=== PATIENT | male | born 1980 | race African-American/Black ===

== ENCOUNTER 2018-05-07 18:03 | Inpatient (IN) ==
[2018-05-07 19:02] LABS: Basophils % 0.1 % (0.0-0.8); Eosinophils # 0.1 10*3/uL (0.0-0.87); Eosinophils % 0.6 % (0.00-10.9); Hematocrit 39.6 VOL% (42.0-52.0); Hemoglobin 13.5 GM/DL (14.0-18.0); Immature Granulocytes % 0.4 %; Immature Granulocytes Absolute 0.04 #; Lymphocytes # 0.9 10*3/uL (1.4-4.0); Lymphocytes % 8.7 % (21.2-54.2); Mean Corpuscular HGB Conc 34.1 GM/DL (32-36); Mean Corpuscular Hemoglobin 27 PG (27-34); Mean Corpuscular Volume 77.8 FL (87-102); Mean Platelet Volume 10.5 FL (9.6-12.0); Monocytes # 0.9 10*3/uL (0.11-0.8); Monocytes % 7.8 % (1.7-12.7); Neutrophils # 8.9 10*3/uL (1.4-7.4); Neutrophils % 82.4 % (38.7-73.9); Platelet Count 292 T/CUMM (130-400); Red Blood Count 5.09 MC/CUMM (3.8-5.5); Red Cell Distribution Width 12.1 % (9.3-17.3); White Blood Count 10.9 T/CUMM (4-12)
[2018-05-07 19:24] LABS: Albumin 3.2 G/DL (3.4-5.0); Bilirubin,Total 0.5 MG/DL (0.2-1.0); Calcium 9.6 MG/DL (8.5-10.1); Osmolality,Calculated 267.8 MOS/KG (273-304); Potassium 3.8 MMOL/L (3.5-5.1); Total Protein 8.5 G/DL (6.4-8.3)
[2018-05-07] MEDS ORDERED: HYDROmorphone 2 MG/1 ML VIAL IM STA (21:03)
[2018-05-07] MEDS ORDERED: ONDANSETRON 4 MG/2 ML VIAL IV STA ×2 (21:06→21:23)
[2018-05-07] MEDS ORDERED: PIPERACILLIN/TAZOBACTAM 3,375 MG in SODIUM CHLORIDE 0.9% 100 ML IV STA (21:08)
[2018-05-07] MEDS ORDERED: HYDROmorphone 2 MG/1 ML VIAL IV STA (21:22)
[2018-05-07] MEDS ORDERED: SODIUM CHLORIDE 0.9% 1,000 ML IV STA (22:11)
[2018-05-08] MEDS ORDERED: DOCUSATE SODIUM 100 MG CAPSULE PO PRN (01:19)
[2018-05-08] MEDS ORDERED: GLUCAGON 1 MG VIAL IM PRN (01:37)
[2018-05-08] MEDS ORDERED: DEXTROSE 50% 25 GM/50 ML VIAL IV PRN (01:37)
[2018-05-08] MEDS: ONDANSETRON 4 MG/2 ML VIAL IV PRN ×2 (01:46→20:40)
[2018-05-08] MEDS: SODIUM CHLORIDE 0.9% 1,000 ML IV SCH ×2 (01:46→16:24)
[2018-05-08] MEDS: HYDROmorphone 2 MG/1 ML VIAL IV PRN ×4 (01:47→20:40)
[2018-05-08] MEDS: INSULIN REGULAR 100 UNIT/ML SUBCUT SCH ×4 (02:25→18:16)
[2018-05-08] MEDS ORDERED: VANCOMYCIN INJ 2,000 MG in SODIUM CHLORIDE 0.9% 500 ML IV SCH (02:30)
[2018-05-08] MEDS ORDERED: INFLUENZA VIRUS VACCINE 0.5 ML SYRINGE IM ONE (03:17)
[2018-05-08 04:21] LABS: Basophils % 0.2 % (0.0-0.8); Eosinophils # 0.1 10*3/uL (0.0-0.87); Eosinophils % 0.7 % (0.00-10.9); Hematocrit 35.3 VOL% (42.0-52.0); Hemoglobin 11.7 GM/DL (14.0-18.0); Immature Granulocytes % 0.7 %; Immature Granulocytes Absolute 0.07 #; Lymphocytes # 0.9 10*3/uL (1.4-4.0); Mean Corpuscular HGB Conc 33.1 GM/DL (32-36); Mean Corpuscular Hemoglobin 26 PG (27-34); Mean Corpuscular Volume 78.6 FL (87-102); Mean Platelet Volume 10.6 FL (9.6-12.0); Monocytes # 1.2 10*3/uL (0.11-0.8); Monocytes % 11.3 % (1.7-12.7); Neutrophils # 8.2 10*3/uL (1.4-7.4); Neutrophils % 78.1 % (38.7-73.9); Platelet Count 265 T/CUMM (130-400); Red Blood Count 4.49 MC/CUMM (3.8-5.5); White Blood Count 10.4 T/CUMM (4-12)
[2018-05-08 04:52] LABS: Calcium 8.7 MG/DL (8.5-10.1); Osmolality,Calculated 268.8 MOS/KG (273-304); Potassium 3.5 MMOL/L (3.5-5.1)
[2018-05-08 04:56] LABS: INR 0.9; PT Patient Result 10.1 SECS; Partial Thromboplastin Time 31.4 SECS (0-40)
[2018-05-08] MEDS ORDERED: LIDOCAINE 1% 20 ML VIAL ONE (06:40)
[2018-05-08] MEDS ORDERED: FAMOTIDINE 20 MG/2 ML VIAL IV ONE (07:12)
[2018-05-08] MEDS ORDERED: GENTAMICIN INJ 160 MG in SODIUM CHLORIDE 0.9% 100 ML IV SCH (09:00)
[2018-05-08] MEDS ORDERED: PROPOFOL 200 MG/20 ML VIAL IV ONE (09:10)
[2018-05-08] MEDS ORDERED: SEVOFLURANE 1 UNIT/15 MINUTE INH ONE (09:10)
[2018-05-08] MEDS ORDERED: ONDANSETRON 4 MG/2 ML VIAL ONE ×2 (09:10→09:28)
[2018-05-08] MEDS ORDERED: fentaNYL 100 MCG/2 ML VIAL ONE (09:10)
[2018-05-08] MEDS ORDERED: ROCURONIUM 100 MG/10 ML VIAL IV ONE (09:11)
[2018-05-08] MEDS ORDERED: PHENYLEPHRINE 1 MG/10 ML SYRINGE IV ONE (09:11)
[2018-05-08] MEDS ORDERED: SUCCINYLCHOLINE 200 MG/10 ML VIAL ONE (09:11)
[2018-05-08] MEDS ORDERED: HYDROmorphone 2 MG/1 ML VIAL IV PRN (09:27)
[2018-05-08] MEDS ORDERED: ONDANSETRON 4 MG/2 ML VIAL IV PRN (09:27)
[2018-05-08] MEDS ORDERED: HYDROmorphone 2 MG/1 ML VIAL ONE (09:28)
[2018-05-08] MEDS: GENTAMICIN INJ 480 MG in SODIUM CHLORIDE 0.9% 100 ML IV SCH (10:16)
[2018-05-08] MEDS: CLINDAMYCIN INJ 600 MG in PREMIX 1 EACH IV SCH ×2 (12:29→17:30)
[2018-05-08] MEDS: PIPERACILLIN/TAZOBACTAM 3,375 MG in SODIUM CHLORIDE 0.9% 100 ML IV SCH ×2 (13:08→18:16)
[2018-05-08] MEDS ORDERED: SKIN HEALING OINT (AQUAPHOR) 50 GM TUBE TOP PRN (15:32)
[2018-05-08] MEDS: INSULIN GLARGINE 100 UNIT/ML SUBCUT SCH (20:41)
[2018-05-09] MEDS: INSULIN REGULAR 100 UNIT/ML SUBCUT SCH ×4 (00:54→18:10)
[2018-05-09] MEDS: HYDROmorphone 2 MG/1 ML VIAL IV PRN ×3 (01:15→08:50)
[2018-05-09] MEDS: ONDANSETRON 4 MG/2 ML VIAL IV PRN ×2 (01:16→05:40)
[2018-05-09] MEDS: CLINDAMYCIN INJ 600 MG in PREMIX 1 EACH IV SCH ×3 (01:17→16:38)
[2018-05-09] MEDS: PIPERACILLIN/TAZOBACTAM 3,375 MG in SODIUM CHLORIDE 0.9% 100 ML IV SCH ×3 (02:05→18:10)
[2018-05-09 07:21] LABS: Basophils % 0.1 % (0.0-0.8); Eosinophils # 0.1 10*3/uL (0.0-0.87); Eosinophils % 0.7 % (0.00-10.9); Hematocrit 33.6 VOL% (42.0-52.0); Hemoglobin 11.3 GM/DL (14.0-18.0); Immature Granulocytes % 0.5 %; Immature Granulocytes Absolute 0.04 #; Lymphocytes # 1.2 10*3/uL (1.4-4.0); Lymphocytes % 14.1 % (21.2-54.2); Mean Corpuscular HGB Conc 33.6 GM/DL (32-36); Mean Corpuscular Hemoglobin 27 PG (27-34); Mean Corpuscular Volume 79.2 FL (87-102); Mean Platelet Volume 10.3 FL (9.6-12.0); Monocytes # 0.8 10*3/uL (0.11-0.8); Monocytes % 9.7 % (1.7-12.7); Neutrophils # 6.5 10*3/uL (1.4-7.4); Neutrophils % 74.9 % (38.7-73.9); Platelet Count 279 T/CUMM (130-400); Red Blood Count 4.24 MC/CUMM (3.8-5.5); Red Cell Distribution Width 12.3 % (9.3-17.3); White Blood Count 8.7 T/CUMM (4-12)
[2018-05-09 08:03] LABS: Calcium 8.7 MG/DL (8.5-10.1); Osmolality,Calculated 272.4 MOS/KG (273-304); Potassium 3.5 MMOL/L (3.5-5.1); Risk Ratio 4.53; Thyroid Stimulating Hormone 1.63 uIU/ml (0.358-3.74); VLDL CHOLESTEROL 17.8 MG/DL
[2018-05-09] MEDS: diphenhydrAMINE CAP 25 MG CAPSULE PO PRN (09:49)
[2018-05-09] MEDS ORDERED: NALBUPHINE 10 MG/ML AMP IV PRN (09:51)
[2018-05-09] MEDS: SODIUM CHLORIDE 0.9% 1,000 ML IV SCH ×3 (11:11→17:42)
[2018-05-09] MEDS: SODIUM HYPOCHLORITE 0.25% IRRIG 473 ML BOTTLE TOP SCH (11:12)
[2018-05-09] MEDS: GENTAMICIN INJ 480 MG in SODIUM CHLORIDE 0.9% 100 ML IV SCH (11:16)
[2018-05-09] MEDS ORDERED: KETOROLAC 30 MG/1 ML VIAL IV ONE (12:00)
[2018-05-09] MEDS: MORPHINE 4 MG/1 ML VIAL IV PRN ×3 (14:17→20:49)
[2018-05-09] MEDS: amLODIPine 5 MG TABLET PO SCH (16:36)
[2018-05-09] MEDS: INSULIN GLARGINE 100 UNIT/ML SUBCUT SCH (20:49)
[2018-05-10] MEDS: CLINDAMYCIN INJ 600 MG in PREMIX 1 EACH IV SCH ×2 (01:05→10:26)
[2018-05-10] MEDS: MORPHINE 4 MG/1 ML VIAL IV PRN ×2 (02:07→07:11)
[2018-05-10] MEDS: PIPERACILLIN/TAZOBACTAM 3,375 MG in SODIUM CHLORIDE 0.9% 100 ML IV SCH ×2 (02:07→10:26)
[2018-05-10] MEDS: INSULIN REGULAR 100 UNIT/ML SUBCUT SCH ×5 (02:29→17:55)
[2018-05-10 07:36] LABS: Basophils % 0.4 % (0.0-0.8); Eosinophils # 0.1 10*3/uL (0.0-0.87); Eosinophils % 1.4 % (0.00-10.9); Hematocrit 33.2 VOL% (42.0-52.0); Hemoglobin 11.1 GM/DL (14.0-18.0); Immature Granulocytes % 0.4 %; Immature Granulocytes Absolute 0.03 #; Lymphocytes # 1.2 10*3/uL (1.4-4.0); Lymphocytes % 16.9 % (21.2-54.2); Mean Corpuscular HGB Conc 33.4 GM/DL (32-36); Mean Corpuscular Hemoglobin 26 PG (27-34); Mean Corpuscular Volume 78.1 FL (87-102); Mean Platelet Volume 10.4 FL (9.6-12.0); Monocytes # 0.7 10*3/uL (0.11-0.8); Monocytes % 10.1 % (1.7-12.7); Neutrophils # 5.1 10*3/uL (1.4-7.4); Neutrophils % 70.8 % (38.7-73.9); Platelet Count 308 T/CUMM (130-400); Red Blood Count 4.25 MC/CUMM (3.8-5.5); Red Cell Distribution Width 12.2 % (9.3-17.3); White Blood Count 7.2 T/CUMM (4-12)
[2018-05-10 07:58] LABS: Calcium 8.7 MG/DL (8.5-10.1); Osmolality,Calculated 274.2 MOS/KG (273-304); Potassium 3.7 MMOL/L (3.5-5.1)
[2018-05-10] MEDS: GENTAMICIN INJ 480 MG in SODIUM CHLORIDE 0.9% 100 ML IV SCH (10:26)
[2018-05-10] MEDS: SODIUM CHLORIDE 0.9% 1,000 ML IV SCH ×2 (10:27→22:52)
[2018-05-10] MEDS: SODIUM HYPOCHLORITE 0.25% IRRIG 473 ML BOTTLE TOP SCH (10:27)
[2018-05-10] MEDS: amLODIPine 5 MG TABLET PO SCH (11:10)
[2018-05-10] MEDS: ACETAMINOPHEN 325 MG TABLET PO PRN ×2 (12:58→23:33)
[2018-05-10] MEDS ORDERED: metFORMIN 500 MG TABLET PO SCH (17:00)
[2018-05-10] MEDS: MEROPENEM 1,000 MG in SODIUM CHLORIDE 0.9% 100 ML IV SCH (17:56)
[2018-05-10] MEDS: INSULIN GLARGINE 100 UNIT/ML SUBCUT SCH (20:41)
[2018-05-10] MEDS: METOPROLOL TARTRATE 50 MG TABLET PO SCH (20:42)
[2018-05-10] MEDS ORDERED: METOPROLOL TARTRATE 50 MG TABLET PO SCH (21:00)
[2018-05-11] MEDS: MEROPENEM 1,000 MG in SODIUM CHLORIDE 0.9% 100 ML IV SCH ×3 (01:10→17:44)
[2018-05-11] MEDS: INSULIN REGULAR 100 UNIT/ML SUBCUT SCH ×4 (01:12→18:23)
[2018-05-11] MEDS ORDERED: HYDROmorphone 2 MG/1 ML VIAL IV ONE (01:17)
[2018-05-11 06:53] LABS: Basophils % 0.3 % (0.0-0.8); Eosinophils # 0.1 10*3/uL (0.0-0.87); Hematocrit 36.3 VOL% (42.0-52.0); Hemoglobin 12.2 GM/DL (14.0-18.0); Immature Granulocytes % 0.5 %; Immature Granulocytes Absolute 0.03 #; Lymphocytes # 1.2 10*3/uL (1.4-4.0); Lymphocytes % 18.7 % (21.2-54.2); Mean Corpuscular HGB Conc 33.6 GM/DL (32-36); Mean Corpuscular Hemoglobin 26 PG (27-34); Mean Corpuscular Volume 78.2 FL (87-102); Mean Platelet Volume 9.7 FL (9.6-12.0); Monocytes # 0.5 10*3/uL (0.11-0.8); Monocytes % 8.3 % (1.7-12.7); Neutrophils # 4.6 10*3/uL (1.4-7.4); Neutrophils % 70.2 % (38.7-73.9); Platelet Count 328 T/CUMM (130-400); Red Blood Count 4.64 MC/CUMM (3.8-5.5); Red Cell Distribution Width 12.3 % (9.3-17.3); White Blood Count 6.5 T/CUMM (4-12)
[2018-05-11 07:13] LABS: Alanine Aminotransferase 17 U/L (16-61); Albumin 2.6 G/DL (3.4-5.0); Alkaline Phosphatase 100 U/L (45-117); Aspartate Amino Transferase 10 U/L (0-37); Bilirubin,Total < 0.39 MG/DL (0.2-1.0); Blood Urea Nitrogen 11 MG/DL (7-18); Calcium 9.2 MG/DL (8.5-10.1); Glucose 252 MG/DL (74-106); Osmolality,Calculated 275.2 MOS/KG (273-304); Potassium 3.5 MMOL/L (3.5-5.1); Sodium 134 MMOL/L (136-145); Total Protein 7.4 G/DL (6.4-8.3)
[2018-05-11] MEDS: SODIUM HYPOCHLORITE 0.25% IRRIG 473 ML BOTTLE TOP SCH (09:30)
[2018-05-11] MEDS: SODIUM CHLORIDE 0.9% 1,000 ML IV SCH (13:30)
[2018-05-11] MEDS: METOPROLOL TARTRATE 50 MG TABLET PO SCH ×2 (13:30→23:57)
[2018-05-11] MEDS ORDERED: LIDOCAINE 1% 20 ML VIAL ONE (15:36)
[2018-05-11] MEDS: LACTATED RINGERS 1,000 ML IV SCH (16:00)
[2018-05-11] MEDS ORDERED: ONDANSETRON 4 MG/2 ML VIAL IV PRN (16:36)
[2018-05-11] MEDS: HYDROmorphone 2 MG/1 ML VIAL IV PRN ×2 (16:40→16:45)
[2018-05-11] MEDS ORDERED: MIDAZOLAM 2 MG/2 ML VIAL ONE (16:42)
[2018-05-11] MEDS ORDERED: fentaNYL 100 MCG/2 ML VIAL ONE (16:42)
[2018-05-11] MEDS ORDERED: PROPOFOL 200 MG/20 ML VIAL IV ONE (16:42)
[2018-05-11] MEDS ORDERED: hydrALAZINE 20 MG/1 ML VIAL ONE (16:42)
[2018-05-11] MEDS: LISINOPRIL 5 MG TABLET PO SCH ×2 (17:43→23:57)
[2018-05-11] MEDS: MEPERIDINE 25 MG/1 ML VIAL IV PRN (23:34)
[2018-05-11] MEDS: INSULIN GLARGINE 100 UNIT/ML SUBCUT SCH (23:57)
[2018-05-12] MEDS: MEROPENEM 1,000 MG in SODIUM CHLORIDE 0.9% 100 ML IV SCH ×4 (00:21→23:44)
[2018-05-12] MEDS: INSULIN REGULAR 100 UNIT/ML SUBCUT SCH ×4 (00:27→17:05)
[2018-05-12] MEDS: LACTATED RINGERS 1,000 ML IV SCH (00:56)
[2018-05-12] MEDS: ACETAMINOPHEN 325 MG TABLET PO PRN ×2 (04:11→21:48)
[2018-05-12 04:33] LABS: Basophils % 0.4 % (0.0-0.8); Eosinophils # 0.2 10*3/uL (0.0-0.87); Eosinophils % 2.2 % (0.00-10.9); Hematocrit 36.3 VOL% (42.0-52.0); Immature Granulocytes % 0.3 %; Immature Granulocytes Absolute 0.02 #; Lymphocytes # 1.2 10*3/uL (1.4-4.0); Lymphocytes % 16.2 % (21.2-54.2); Mean Corpuscular HGB Conc 33.1 GM/DL (32-36); Mean Corpuscular Hemoglobin 26 PG (27-34); Mean Corpuscular Volume 78.6 FL (87-102); Mean Platelet Volume 11.4 FL (9.6-12.0); Monocytes # 0.8 10*3/uL (0.11-0.8); Monocytes % 10.9 % (1.7-12.7); Neutrophils # 5.2 10*3/uL (1.4-7.4); Platelet Count 268 T/CUMM (130-400); Red Blood Count 4.62 MC/CUMM (3.8-5.5); Red Cell Distribution Width 12.3 % (9.3-17.3); White Blood Count 7.4 T/CUMM (4-12)
[2018-05-12 04:57] LABS: Calcium 9.1 MG/DL (8.5-10.1); Potassium 4.2 MMOL/L (3.5-5.1)
[2018-05-12 05:03] LABS: Albumin 2.6 G/DL (3.4-5.0); Calcium 9.2 MG/DL (8.5-10.1); Osmolality,Calculated 274.1 MOS/KG (273-304); Potassium 3.8 MMOL/L (3.5-5.1); Total Protein 7.5 G/DL (6.4-8.3)
[2018-05-12] MEDS: SODIUM CHLORIDE 0.9% 1,000 ML IV SCH ×2 (06:09→13:16)
[2018-05-12] MEDS: MEPERIDINE 25 MG/1 ML VIAL IV PRN (08:32)
[2018-05-12] MEDS: METOPROLOL TARTRATE 50 MG TABLET PO SCH ×2 (08:36→21:39)
[2018-05-12] MEDS: SODIUM HYPOCHLORITE 0.25% IRRIG 473 ML BOTTLE TOP SCH (08:36)
[2018-05-12] MEDS: LISINOPRIL 5 MG TABLET PO SCH ×2 (08:36→21:45)
[2018-05-12] MEDS ORDERED: MEPERIDINE 25 MG/1 ML VIAL IV ONE (14:13)
[2018-05-12] MEDS: INSULIN GLARGINE 100 UNIT/ML SUBCUT SCH (21:49)
[2018-05-13] MEDS: INSULIN REGULAR 100 UNIT/ML SUBCUT SCH ×5 (00:39→23:40)
[2018-05-13 05:03] LABS: Basophils % 0.3 % (0.0-0.8); Eosinophils # 0.2 10*3/uL (0.0-0.87); Eosinophils % 2.5 % (0.00-10.9); Hematocrit 35.7 VOL% (42.0-52.0); Hemoglobin 11.9 GM/DL (14.0-18.0); Immature Granulocytes % 0.4 %; Immature Granulocytes Absolute 0.03 #; Lymphocytes # 1.6 10*3/uL (1.4-4.0); Lymphocytes % 23.7 % (21.2-54.2); Mean Corpuscular HGB Conc 33.3 GM/DL (32-36); Mean Corpuscular Hemoglobin 26 PG (27-34); Mean Corpuscular Volume 77.9 FL (87-102); Mean Platelet Volume 9.7 FL (9.6-12.0); Monocytes # 0.7 10*3/uL (0.11-0.8); Monocytes % 10.4 % (1.7-12.7); Neutrophils # 4.3 10*3/uL (1.4-7.4); Neutrophils % 62.7 % (38.7-73.9); Platelet Count 385 T/CUMM (130-400); Red Blood Count 4.58 MC/CUMM (3.8-5.5); Red Cell Distribution Width 12.6 % (9.3-17.3); White Blood Count 6.9 T/CUMM (4-12)
[2018-05-13 05:15] LABS: Albumin 2.7 G/DL (3.4-5.0); Bilirubin,Total 0.7 MG/DL (0.2-1.0); Calcium 9.1 MG/DL (8.5-10.1); Osmolality,Calculated 273.1 MOS/KG (273-304); Total Protein 7.5 G/DL (6.4-8.3)
[2018-05-13] MEDS: MEROPENEM 1,000 MG in SODIUM CHLORIDE 0.9% 100 ML IV SCH ×3 (06:48→23:42)
[2018-05-13] MEDS: LISINOPRIL 5 MG TABLET PO SCH ×2 (08:57→21:09)
[2018-05-13] MEDS: METOPROLOL TARTRATE 50 MG TABLET PO SCH ×2 (08:57→21:09)
[2018-05-13] MEDS: SODIUM HYPOCHLORITE 0.25% IRRIG 473 ML BOTTLE TOP SCH (08:58)
[2018-05-13] MEDS: SODIUM CHLORIDE 0.9% 1,000 ML IV SCH (11:30)
[2018-05-13] MEDS: INSULIN GLARGINE 100 UNIT/ML SUBCUT SCH (21:07)
[2018-05-13] MEDS: diphenhydrAMINE CAP 25 MG CAPSULE PO PRN (23:41)
[2018-05-13] MEDS: ACETAMINOPHEN 325 MG TABLET PO PRN (23:41)
[2018-05-14] MEDS: SODIUM CHLORIDE 0.9% 1,000 ML IV SCH (02:41)
[2018-05-14] MEDS: INSULIN REGULAR 100 UNIT/ML SUBCUT SCH ×3 (05:51→17:40)
[2018-05-14 06:48] LABS: Basophils % 0.4 % (0.0-0.8); Eosinophils # 0.2 10*3/uL (0.0-0.87); Hematocrit 36.2 VOL% (42.0-52.0); Hemoglobin 11.9 GM/DL (14.0-18.0); Immature Granulocytes % 0.4 %; Immature Granulocytes Absolute 0.03 #; Lymphocytes # 1.9 10*3/uL (1.4-4.0); Lymphocytes % 27.2 % (21.2-54.2); Mean Corpuscular HGB Conc 32.9 GM/DL (32-36); Mean Corpuscular Hemoglobin 26 PG (27-34); Mean Corpuscular Volume 78.5 FL (87-102); Mean Platelet Volume 9.7 FL (9.6-12.0); Monocytes # 0.6 10*3/uL (0.11-0.8); Monocytes % 8.3 % (1.7-12.7); Neutrophils # 4.2 10*3/uL (1.4-7.4); Neutrophils % 60.7 % (38.7-73.9); Platelet Count 406 T/CUMM (130-400); Red Blood Count 4.61 MC/CUMM (3.8-5.5); Red Cell Distribution Width 12.7 % (9.3-17.3)
[2018-05-14] MEDS: MEROPENEM 1,000 MG in SODIUM CHLORIDE 0.9% 100 ML IV SCH ×3 (07:15→22:48)
[2018-05-14 07:24] LABS: Alanine Aminotransferase 45 U/L (16-61); Albumin 2.8 G/DL (3.4-5.0); Alkaline Phosphatase 92 U/L (45-117); Aspartate Amino Transferase 30 U/L (0-37); Bilirubin,Total < 0.39 MG/DL (0.2-1.0); Blood Urea Nitrogen 14 MG/DL (7-18); Calcium 9.2 MG/DL (8.5-10.1); Glucose 149 MG/DL (74-106); Potassium 3.9 MMOL/L (3.5-5.1); Sodium 136 MMOL/L (136-145); Total Protein 7.7 G/DL (6.4-8.3)
[2018-05-14] MEDS: LISINOPRIL 5 MG TABLET PO SCH ×2 (08:37→21:06)
[2018-05-14] MEDS: SODIUM HYPOCHLORITE 0.25% IRRIG 473 ML BOTTLE TOP SCH (08:37)
[2018-05-14] MEDS: METOPROLOL TARTRATE 50 MG TABLET PO SCH ×2 (08:37→20:38)
[2018-05-14] MEDS: diphenhydrAMINE CAP 25 MG CAPSULE PO PRN (20:38)
[2018-05-14] MEDS: ACETAMINOPHEN 325 MG TABLET PO PRN (20:38)
[2018-05-14] MEDS: INSULIN GLARGINE 100 UNIT/ML SUBCUT SCH (20:39)
[2018-05-15] MEDS: INSULIN REGULAR 100 UNIT/ML SUBCUT SCH ×4 (00:31→21:09)
[2018-05-15] MEDS: METOPROLOL TARTRATE 50 MG TABLET PO SCH ×2 (10:00→20:58)
[2018-05-15] MEDS: LISINOPRIL 5 MG TABLET PO SCH ×2 (10:00→20:58)
[2018-05-15] MEDS: MEROPENEM 1,000 MG in SODIUM CHLORIDE 0.9% 100 ML IV SCH ×3 (10:29→22:51)
[2018-05-15] MEDS: SODIUM HYPOCHLORITE 0.25% IRRIG 473 ML BOTTLE TOP SCH (10:30)
[2018-05-15] MEDS ORDERED: GENTAMICIN INJ 160 MG in SODIUM CHLORIDE 0.9% 100 ML IV SCH (13:30)
[2018-05-15] MEDS: GENTAMICIN INJ 480 MG in SODIUM CHLORIDE 0.9% 100 ML IV SCH (15:03)
[2018-05-15] MEDS: INSULIN GLARGINE 100 UNIT/ML SUBCUT SCH (21:07)
[2018-05-16] MEDS: diphenhydrAMINE CAP 25 MG CAPSULE PO PRN (00:40)
[2018-05-16] MEDS: INSULIN REGULAR 100 UNIT/ML SUBCUT SCH ×4 (01:50→18:08)
[2018-05-16] MEDS: LISINOPRIL 5 MG TABLET PO SCH ×2 (08:47→21:47)
[2018-05-16] MEDS: METOPROLOL TARTRATE 50 MG TABLET PO SCH ×2 (08:48→21:47)
[2018-05-16] MEDS: MEROPENEM 1,000 MG in SODIUM CHLORIDE 0.9% 100 ML IV SCH ×3 (08:48→23:01)
[2018-05-16] MEDS: SODIUM HYPOCHLORITE 0.25% IRRIG 473 ML BOTTLE TOP SCH (09:30)
[2018-05-16] MEDS: ZINC SULFATE 220 MG CAPSULE PO SCH (12:54)
[2018-05-16] MEDS: ASCORBIC ACID 500 MG TABLET PO SCH ×2 (12:55→21:48)
[2018-05-16] MEDS: INSULIN GLARGINE 100 UNIT/ML SUBCUT SCH ×2 (12:55→21:51)
[2018-05-16] MEDS: GENTAMICIN INJ 480 MG in SODIUM CHLORIDE 0.9% 100 ML IV SCH (14:52)
[2018-05-16] MEDS: ACETAMINOPHEN 325 MG TABLET PO PRN (21:47)
[2018-05-17] MEDS: INSULIN REGULAR 100 UNIT/ML SUBCUT SCH ×5 (00:21→16:48)
[2018-05-17 05:07] LABS: Basophils % 0.6 % (0.0-0.8); Eosinophils # 0.2 10*3/uL (0.0-0.87); Eosinophils % 2.5 % (0.00-10.9); Hematocrit 36.9 VOL% (42.0-52.0); Hemoglobin 11.9 GM/DL (14.0-18.0); Immature Granulocytes % 0.4 %; Immature Granulocytes Absolute 0.03 #; Lymphocytes # 1.9 10*3/uL (1.4-4.0); Lymphocytes % 26.2 % (21.2-54.2); Mean Corpuscular HGB Conc 32.2 GM/DL (32-36); Mean Corpuscular Hemoglobin 26 PG (27-34); Mean Corpuscular Volume 79.2 FL (87-102); Mean Platelet Volume 9.8 FL (9.6-12.0); Monocytes # 0.5 10*3/uL (0.11-0.8); Monocytes % 6.5 % (1.7-12.7); Neutrophils # 4.5 10*3/uL (1.4-7.4); Neutrophils % 63.8 % (38.7-73.9); Platelet Count 414 T/CUMM (130-400); Red Blood Count 4.66 MC/CUMM (3.8-5.5); Red Cell Distribution Width 12.9 % (9.3-17.3); White Blood Count 7.1 T/CUMM (4-12)
[2018-05-17 05:20] LABS: Calcium 9.2 MG/DL (8.5-10.1); Osmolality,Calculated 278.1 MOS/KG (273-304); Potassium 4.3 MMOL/L (3.5-5.1)
[2018-05-17 05:23] LABS: Albumin 3.1 G/DL (3.4-5.0); Bilirubin,Total 0.5 MG/DL (0.2-1.0); Osmolality,Calculated 281.8 MOS/KG (273-304); Potassium 4.3 MMOL/L (3.5-5.1); Total Protein 7.8 G/DL (6.4-8.3)
[2018-05-17] MEDS: ACETAMINOPHEN 325 MG TABLET PO PRN ×3 (06:30→21:20)
[2018-05-17] MEDS: MEROPENEM 1,000 MG in SODIUM CHLORIDE 0.9% 100 ML IV SCH ×2 (06:30→15:19)
[2018-05-17] MEDS: METOPROLOL TARTRATE 50 MG TABLET PO SCH ×2 (09:36→20:39)
[2018-05-17] MEDS: LISINOPRIL 5 MG TABLET PO SCH ×2 (09:36→20:39)
[2018-05-17] MEDS ORDERED: LIDOCAINE 1% 20 ML VIAL ONE (10:08)
[2018-05-17] MEDS ORDERED: HYDROmorphone 2 MG/1 ML VIAL ONE (11:27)
[2018-05-17] MEDS ORDERED: ONDANSETRON 4 MG/2 ML VIAL ONE (11:27)
[2018-05-17] MEDS ORDERED: ONDANSETRON 4 MG/2 ML VIAL IV PRN (11:28)
[2018-05-17] MEDS: HYDROmorphone 2 MG/1 ML VIAL IV PRN ×4 (11:33→12:00)
[2018-05-17] MEDS: ZINC SULFATE 220 MG CAPSULE PO SCH (11:36)
[2018-05-17] MEDS: ASCORBIC ACID 500 MG TABLET PO SCH ×2 (11:36→20:39)
[2018-05-17] MEDS: SODIUM HYPOCHLORITE 0.25% IRRIG 473 ML BOTTLE TOP SCH (11:36)
[2018-05-17] MEDS: INSULIN GLARGINE 100 UNIT/ML SUBCUT SCH (11:36)
[2018-05-17] MEDS ORDERED: PROPOFOL 200 MG/20 ML VIAL IV ONE (11:49)
[2018-05-17] MEDS ORDERED: SEVOFLURANE 1 UNIT/15 MINUTE INH ONE (11:50)
[2018-05-17] MEDS ORDERED: MIDAZOLAM 2 MG/2 ML VIAL ONE (11:50)
[2018-05-17] MEDS ORDERED: fentaNYL 100 MCG/2 ML VIAL ONE (11:50)
[2018-05-17] MEDS: HEPARIN 5,000 UNIT/1 ML VIAL SUBCUT SCH ×2 (13:12→15:20)
[2018-05-17] MEDS: GENTAMICIN INJ 480 MG in SODIUM CHLORIDE 0.9% 100 ML IV SCH (14:15)
[2018-05-17] MEDS: diphenhydrAMINE CAP 25 MG CAPSULE PO PRN (16:52)
[2018-05-18] MEDS: INSULIN REGULAR 100 UNIT/ML SUBCUT SCH ×7 (00:49→21:32)
[2018-05-18] MEDS: HEPARIN 5,000 UNIT/1 ML VIAL SUBCUT SCH ×3 (01:05→15:55)
[2018-05-18] MEDS: MEROPENEM 1,000 MG in SODIUM CHLORIDE 0.9% 100 ML IV SCH ×4 (01:05→17:53)
[2018-05-18] MEDS: INSULIN GLARGINE 100 UNIT/ML SUBCUT SCH ×3 (02:05→21:31)
[2018-05-18] MEDS: ACETAMINOPHEN 325 MG TABLET PO PRN (02:07)
[2018-05-18 05:10] LABS: Basophils % 0.4 % (0.0-0.8); Eosinophils # 0.2 10*3/uL (0.0-0.87); Eosinophils % 2.3 % (0.00-10.9); Hematocrit 37.2 VOL% (42.0-52.0); Hemoglobin 12.2 GM/DL (14.0-18.0); Immature Granulocytes % 0.4 %; Immature Granulocytes Absolute 0.03 #; Lymphocytes # 1.8 10*3/uL (1.4-4.0); Lymphocytes % 21.7 % (21.2-54.2); Mean Corpuscular HGB Conc 32.8 GM/DL (32-36); Mean Corpuscular Hemoglobin 26 PG (27-34); Mean Platelet Volume 9.8 FL (9.6-12.0); Monocytes # 0.5 10*3/uL (0.11-0.8); Monocytes % 6.2 % (1.7-12.7); Neutrophils # 5.6 10*3/uL (1.4-7.4); Platelet Count 391 T/CUMM (130-400); Red Blood Count 4.71 MC/CUMM (3.8-5.5); Red Cell Distribution Width 12.8 % (9.3-17.3); White Blood Count 8.1 T/CUMM (4-12)
[2018-05-18 05:32] LABS: Albumin 2.9 G/DL (3.4-5.0); Bilirubin,Total 0.5 MG/DL (0.2-1.0); Calcium 9.2 MG/DL (8.5-10.1); Osmolality,Calculated 278.2 MOS/KG (273-304); Potassium 4.6 MMOL/L (3.5-5.1); Total Protein 7.6 G/DL (6.4-8.3)
[2018-05-18] MEDS: LISINOPRIL 5 MG TABLET PO SCH (08:10)
[2018-05-18] MEDS: ASCORBIC ACID 500 MG TABLET PO SCH ×2 (08:10→21:35)
[2018-05-18] MEDS: ZINC SULFATE 220 MG CAPSULE PO SCH (08:10)
[2018-05-18] MEDS: METOPROLOL TARTRATE 50 MG TABLET PO SCH ×2 (08:10→21:33)
[2018-05-18] MEDS ORDERED: HYDROmorphone 2 MG/1 ML VIAL IV ONE (10:50)
[2018-05-18] MEDS: SODIUM HYPOCHLORITE 0.25% IRRIG 473 ML BOTTLE TOP SCH (11:10)
[2018-05-18] MEDS: GENTAMICIN INJ 480 MG in SODIUM CHLORIDE 0.9% 100 ML IV SCH (14:41)
[2018-05-18] MEDS: HYDROmorphone 2 MG/1 ML VIAL IV PRN ×2 (15:55→21:32)
[2018-05-18] MEDS: diphenhydrAMINE CAP 25 MG CAPSULE PO PRN (17:53)
[2018-05-18] MEDS ORDERED: hydrALAZINE 25 MG TABLET ONE (20:29)
[2018-05-19] MEDS: INSULIN REGULAR 100 UNIT/ML SUBCUT SCH ×6 (01:01→21:01)
[2018-05-19] MEDS: HEPARIN 5,000 UNIT/1 ML VIAL SUBCUT SCH ×3 (01:02→15:14)
[2018-05-19] MEDS: LISINOPRIL 5 MG TABLET PO SCH ×3 (01:02→20:48)
[2018-05-19] MEDS: diphenhydrAMINE CAP 25 MG CAPSULE PO PRN (01:02)
[2018-05-19] MEDS: MEROPENEM 1,000 MG in SODIUM CHLORIDE 0.9% 100 ML IV SCH ×3 (01:03→16:56)
[2018-05-19 04:43] LABS: Albumin 3.2 G/DL (3.4-5.0); Bilirubin,Total 0.4 MG/DL (0.2-1.0); Calcium 9.1 MG/DL (8.5-10.1); Osmolality,Calculated 280.1 MOS/KG (273-304); Potassium 4.6 MMOL/L (3.5-5.1); Total Protein 7.9 G/DL (6.4-8.3)
[2018-05-19 06:21] LABS: Basophils % 0.4 % (0.0-0.8); Eosinophils # 0.2 10*3/uL (0.0-0.87); Eosinophils % 3.1 % (0.00-10.9); Hematocrit 37.9 VOL% (42.0-52.0); Hemoglobin 12.3 GM/DL (14.0-18.0); Immature Granulocytes % 0.3 %; Immature Granulocytes Absolute 0.02 #; Lymphocytes # 1.8 10*3/uL (1.4-4.0); Lymphocytes % 25.8 % (21.2-54.2); Mean Corpuscular HGB Conc 32.5 GM/DL (32-36); Mean Corpuscular Hemoglobin 26 PG (27-34); Mean Corpuscular Volume 80.5 FL (87-102); Mean Platelet Volume 10.2 FL (9.6-12.0); Monocytes # 0.5 10*3/uL (0.11-0.8); Neutrophils # 4.5 10*3/uL (1.4-7.4); Neutrophils % 63.4 % (38.7-73.9); Platelet Count 381 T/CUMM (130-400); Red Blood Count 4.71 MC/CUMM (3.8-5.5); Red Cell Distribution Width 12.9 % (9.3-17.3); White Blood Count 7.1 T/CUMM (4-12)
[2018-05-19] MEDS ORDERED: LIDOCAINE 1% 20 ML VIAL ONE (08:15)
[2018-05-19] MEDS ORDERED: BUPIVACAINE 0.5% 50 ML VIAL ONE (08:15)
[2018-05-19] MEDS ORDERED: fentaNYL 100 MCG/2 ML VIAL ONE (09:49)
[2018-05-19] MEDS ORDERED: SEVOFLURANE 1 UNIT/15 MINUTE INH ONE (09:50)
[2018-05-19] MEDS ORDERED: PROPOFOL 200 MG/20 ML VIAL IV ONE (09:50)
[2018-05-19] MEDS ORDERED: MIDAZOLAM 2 MG/2 ML VIAL ONE (09:50)
[2018-05-19] MEDS ORDERED: PHENYLEPHRINE 1 MG/10 ML SYRINGE IV ONE (09:51)
[2018-05-19] MEDS ORDERED: ONDANSETRON 4 MG/2 ML VIAL ONE (09:51)
[2018-05-19] MEDS ORDERED: ONDANSETRON 4 MG/2 ML VIAL IV PRN (09:56)
[2018-05-19] MEDS: HYDROmorphone 2 MG/1 ML VIAL IV PRN ×8 (09:59→20:57)
[2018-05-19] MEDS: SODIUM HYPOCHLORITE 0.25% IRRIG 473 ML BOTTLE TOP SCH (09:59)
[2018-05-19] MEDS: INSULIN GLARGINE 100 UNIT/ML SUBCUT SCH ×2 (11:55→20:58)
[2018-05-19] MEDS: METOPROLOL TARTRATE 50 MG TABLET PO SCH ×2 (13:31→20:48)
[2018-05-19] MEDS: ASCORBIC ACID 500 MG TABLET PO SCH ×2 (13:31→20:48)
[2018-05-19] MEDS: ZINC SULFATE 220 MG CAPSULE PO SCH (15:13)
[2018-05-19] MEDS: GENTAMICIN INJ 480 MG in SODIUM CHLORIDE 0.9% 100 ML IV SCH (15:25)
[2018-05-20] MEDS: HEPARIN 5,000 UNIT/1 ML VIAL SUBCUT SCH ×3 (00:47→16:54)
[2018-05-20] MEDS: MEROPENEM 1,000 MG in SODIUM CHLORIDE 0.9% 100 ML IV SCH ×3 (00:48→16:46)
[2018-05-20] MEDS: HYDROmorphone 2 MG/1 ML VIAL IV PRN ×4 (00:49→21:47)
[2018-05-20] MEDS: INSULIN REGULAR 100 UNIT/ML SUBCUT SCH ×6 (00:51→21:48)
[2018-05-20 06:24] LABS: Basophils % 0.4 % (0.0-0.8); Eosinophils # 0.2 10*3/uL (0.0-0.87); Eosinophils % 2.6 % (0.00-10.9); Hematocrit 35.7 VOL% (42.0-52.0); Hemoglobin 11.8 GM/DL (14.0-18.0); Immature Granulocytes % 0.3 %; Immature Granulocytes Absolute 0.02 #; Lymphocytes # 1.4 10*3/uL (1.4-4.0); Lymphocytes % 19.4 % (21.2-54.2); Mean Corpuscular HGB Conc 33.1 GM/DL (32-36); Mean Corpuscular Hemoglobin 26 PG (27-34); Mean Corpuscular Volume 79.7 FL (87-102); Mean Platelet Volume 9.7 FL (9.6-12.0); Monocytes # 0.5 10*3/uL (0.11-0.8); Monocytes % 6.7 % (1.7-12.7); Neutrophils # 5.2 10*3/uL (1.4-7.4); Neutrophils % 70.6 % (38.7-73.9); Platelet Count 381 T/CUMM (130-400); Red Blood Count 4.48 MC/CUMM (3.8-5.5); Red Cell Distribution Width 12.9 % (9.3-17.3); White Blood Count 7.3 T/CUMM (4-12)
[2018-05-20 06:45] LABS: Alanine Aminotransferase 44 U/L (16-61); Albumin 3.2 G/DL (3.4-5.0); Alkaline Phosphatase 105 U/L (45-117); Aspartate Amino Transferase 22 U/L (0-37); Bilirubin,Total < 0.39 MG/DL (0.2-1.0); Blood Urea Nitrogen 29 MG/DL (7-18); Calcium 9.1 MG/DL (8.5-10.1); Glucose 180 MG/DL (74-106); Osmolality,Calculated 283.8 MOS/KG (273-304); Potassium 4.8 MMOL/L (3.5-5.1); Sodium 137 MMOL/L (136-145); Total Protein 7.9 G/DL (6.4-8.3)
[2018-05-20] MEDS: INSULIN GLARGINE 100 UNIT/ML SUBCUT SCH ×2 (09:12→21:48)
[2018-05-20] MEDS: ASCORBIC ACID 500 MG TABLET PO SCH ×2 (09:13→21:46)
[2018-05-20] MEDS: ZINC SULFATE 220 MG CAPSULE PO SCH (09:13)
[2018-05-20] MEDS: LISINOPRIL 5 MG TABLET PO SCH ×2 (09:13→21:46)
[2018-05-20] MEDS: SODIUM HYPOCHLORITE 0.25% IRRIG 473 ML BOTTLE TOP SCH (09:15)
[2018-05-20] MEDS: METOPROLOL TARTRATE 50 MG TABLET PO SCH ×2 (09:15→21:46)
[2018-05-20] MEDS: diphenhydrAMINE CAP 25 MG CAPSULE PO PRN ×2 (13:47→23:06)
[2018-05-20] MEDS: GENTAMICIN INJ 480 MG in SODIUM CHLORIDE 0.9% 100 ML IV SCH (16:45)
[2018-05-21] MEDS: MEROPENEM 1,000 MG in SODIUM CHLORIDE 0.9% 100 ML IV SCH ×3 (00:29→16:37)
[2018-05-21] MEDS: HEPARIN 5,000 UNIT/1 ML VIAL SUBCUT SCH ×3 (00:29→16:38)
[2018-05-21] MEDS: INSULIN REGULAR 100 UNIT/ML SUBCUT SCH ×6 (00:30→21:09)
[2018-05-21] MEDS: HYDROmorphone 2 MG/1 ML VIAL IV PRN ×5 (05:35→23:31)
[2018-05-21] MEDS: LISINOPRIL 5 MG TABLET PO SCH ×2 (09:15→20:46)
[2018-05-21] MEDS: ZINC SULFATE 220 MG CAPSULE PO SCH (09:15)
[2018-05-21] MEDS: INSULIN GLARGINE 100 UNIT/ML SUBCUT SCH ×2 (09:15→21:10)
[2018-05-21] MEDS: METOPROLOL TARTRATE 50 MG TABLET PO SCH ×2 (09:15→20:45)
[2018-05-21] MEDS: ASCORBIC ACID 500 MG TABLET PO SCH ×2 (09:16→20:43)
[2018-05-21] MEDS: SODIUM HYPOCHLORITE 0.25% IRRIG 473 ML BOTTLE TOP SCH (09:16)
[2018-05-21] MEDS: GENTAMICIN INJ 480 MG in SODIUM CHLORIDE 0.9% 100 ML IV SCH (13:48)
[2018-05-21] MEDS: diphenhydrAMINE CAP 25 MG CAPSULE PO PRN (20:48)
[2018-05-22] MEDS: INSULIN REGULAR 100 UNIT/ML SUBCUT SCH ×4 (01:08→15:05)
[2018-05-22] MEDS: HEPARIN 5,000 UNIT/1 ML VIAL SUBCUT SCH ×2 (01:08→09:22)
[2018-05-22] MEDS: MEROPENEM 1,000 MG in SODIUM CHLORIDE 0.9% 100 ML IV SCH ×2 (01:08→09:22)
[2018-05-22] MEDS: HYDROmorphone 2 MG/1 ML VIAL IV PRN ×2 (02:43→08:12)
[2018-05-22] MEDS: LISINOPRIL 5 MG TABLET PO SCH (09:23)
[2018-05-22] MEDS: METOPROLOL TARTRATE 50 MG TABLET PO SCH (09:23)
[2018-05-22] MEDS: ASCORBIC ACID 500 MG TABLET PO SCH (09:23)
[2018-05-22] MEDS: ZINC SULFATE 220 MG CAPSULE PO SCH (09:23)
[2018-05-22] MEDS: INSULIN GLARGINE 100 UNIT/ML SUBCUT SCH (09:23)
[2018-05-22] MEDS: SODIUM HYPOCHLORITE 0.25% IRRIG 473 ML BOTTLE TOP SCH (10:26)
[2018-05-22 12:11] VITALS: BP 130/84
[2018-05-22] MEDS: GENTAMICIN INJ 480 MG in SODIUM CHLORIDE 0.9% 100 ML IV SCH (14:23)
== END 2018-05-22 15:08 | disposition home health service (06) | DRG 239 ==
LOC: N.ED 18:03 → SUATTDRO 23:51 → N.EDINP 05-08 00:37 → N.5E 05-08 01:30
PROVIDERS: ADMIT Internal Medicine; ATTEND Internal Medicine

== ENCOUNTER 2018-10-03 19:09 | Inpatient (IN) ==
[2018-10-03] MEDS ORDERED: HYDROmorphone 2 MG/1 ML VIAL IV STA (21:21)
[2018-10-03] MEDS ORDERED: CEFTAROLINE 600 MG in SODIUM CHLORIDE 0.9% 100 ML IV STA (21:21)
[2018-10-03] MEDS ORDERED: ONDANSETRON 4 MG/2 ML VIAL IV STA (21:21)
[2018-10-03 21:42] LABS: Basophils % 0.3 % (0.0-0.8); Eosinophils # 0.2 10*3/uL (0.0-0.87); Eosinophils % 2.6 % (0.00-10.9); Hematocrit 35.7 VOL% (42.0-52.0); Hemoglobin 11.8 GM/DL (14.0-18.0); Immature Granulocytes % 0.4 %; Immature Granulocytes Absolute 0.03 #; Lymphocytes # 1.2 10*3/uL (1.4-4.0); Lymphocytes % 15.4 % (21.2-54.2); Mean Corpuscular HGB Conc 33.1 GM/DL (32-36); Mean Platelet Volume 10.7 FL (9.6-12.0); Monocytes % 8.6 % (1.7-12.7); Neutrophils % 72.7 % (38.7-73.9); Platelet Count 245 T/CUMM (130-400); Red Blood Count 4.52 MC/CUMM (3.8-5.5); Red Cell Distribution Width 12.4 % (9.3-17.3); White Blood Count 7.6 T/CUMM (4-12)
[2018-10-03 22:00] LABS: Alanine Aminotransferase 23 U/L (16-61); Albumin 3.4 G/DL (3.4-5.0); Alkaline Phosphatase 107 U/L (45-117); Aspartate Amino Transferase 14 U/L (0-37); Bilirubin,Total < 0.39 MG/DL (0.2-1.0); Blood Urea Nitrogen 15 MG/DL (7-18); Calcium 9.4 MG/DL (8.5-10.1); Glucose 232 MG/DL (74-106); Osmolality,Calculated 277.1 MOS/KG (273-304); Total Protein 8.2 G/DL (6.4-8.3)
[2018-10-03 22:46] LABS: Sedimentation Rate-Westergren 76 MM/HR (0-15)
[2018-10-04] MEDS ORDERED: GLUCAGON 1 MG VIAL IM PRN (00:50)
[2018-10-04] MEDS ORDERED: ONDANSETRON 4 MG/2 ML VIAL IV PRN (00:50)
[2018-10-04] MEDS ORDERED: ACETAMINOPHEN 325 MG TABLET PO PRN (00:50)
[2018-10-04] MEDS ORDERED: DEXTROSE 50% 25 GM/50 ML VIAL IV PRN (00:50)
[2018-10-04] MEDS: PIPERACILLIN/TAZOBACTAM 3,375 MG in SODIUM CHLORIDE 0.9% 100 ML IV SCH ×3 (01:30→17:00)
[2018-10-04] MEDS: INSULIN REGULAR 100 UNIT/ML SUBCUT SCH ×4 (01:30→18:12)
[2018-10-04] MEDS: SODIUM CHLORIDE 0.9% 1,000 ML IV SCH ×4 (01:30→17:00)
[2018-10-04 05:16] LABS: Basophils % 0.1 % (0.0-0.8); Eosinophils # 0.2 10*3/uL (0.0-0.87); Eosinophils % 3.4 % (0.00-10.9); Hematocrit 34.4 VOL% (42.0-52.0); Hemoglobin 11.5 GM/DL (14.0-18.0); Immature Granulocytes % 0.3 %; Immature Granulocytes Absolute 0.02 #; Lymphocytes # 1.6 10*3/uL (1.4-4.0); Lymphocytes % 22.9 % (21.2-54.2); Mean Corpuscular HGB Conc 33.4 GM/DL (32-36); Mean Corpuscular Volume 79.6 FL (87-102); Mean Platelet Volume 10.9 FL (9.6-12.0); Monocytes % 8.7 % (1.7-12.7); Neutrophils % 64.6 % (38.7-73.9); Platelet Count 233 T/CUMM (130-400); Red Blood Count 4.32 MC/CUMM (3.8-5.5); Red Cell Distribution Width 12.4 % (9.3-17.3); White Blood Count 6.8 T/CUMM (4-12)
[2018-10-04 05:31] LABS: Albumin 3.1 G/DL (3.4-5.0); Bilirubin,Total 0.4 MG/DL (0.2-1.0); Calcium 9.4 MG/DL (8.5-10.1); Osmolality,Calculated 276.7 MOS/KG (273-304); Total Protein 7.6 G/DL (6.4-8.3)
[2018-10-04 05:45] LABS: Platelet Estimate Adequate
[2018-10-04] MEDS: PANTOPRAZOLE 40 MG TABLET PO SCH (08:34)
[2018-10-04] MEDS ORDERED: SKIN HEALING OINT (AQUAPHOR) 50 GM TUBE TOP PRN (09:08)
[2018-10-04] MEDS ORDERED: LIDOCAINE 1%/EPI INJ 20 ML VIAL ONE (10:05)
[2018-10-04] MEDS ORDERED: BUPIVACAINE MPF 0.25% 30 ML VIAL ONE (10:06)
[2018-10-04] MEDS ORDERED: PROPOFOL 200 MG/20 ML VIAL IV ONE (11:36)
[2018-10-04] MEDS ORDERED: MIDAZOLAM 2 MG/2 ML VIAL ONE (11:37)
[2018-10-04] MEDS ORDERED: fentaNYL 100 MCG/2 ML VIAL ONE (11:37)
[2018-10-04] MEDS ORDERED: LABETALOL 20 MG/4 ML SYRINGE IV ONE (11:38)
[2018-10-04] MEDS: ALBUTEROL/IPRATROPIUM 3 ML NEB RESP TX SCH ×2 (12:41→19:12)
[2018-10-04] MEDS: ENOXAPARIN 40 MG/0.4 ML SYRINGE SUBCUT SCH (16:59)
[2018-10-04] MEDS: METOPROLOL TARTRATE 25 MG TABLET PO SCH (21:37)
[2018-10-04] MEDS: LISINOPRIL 5 MG TABLET PO SCH (21:37)
[2018-10-04] MEDS: INSULIN NPH 100 UNIT/ML SUBCUT SCH (21:39)
[2018-10-04] MEDS: HYDROmorphone 2 MG/1 ML VIAL IV PRN (21:41)
[2018-10-05] MEDS: ALBUTEROL/IPRATROPIUM 3 ML NEB RESP TX SCH ×4 (00:17→21:18)
[2018-10-05] MEDS: INSULIN REGULAR 100 UNIT/ML SUBCUT SCH ×4 (00:34→17:50)
[2018-10-05] MEDS: SODIUM CHLORIDE 0.9% 1,000 ML IV SCH ×2 (02:26→12:31)
[2018-10-05] MEDS: PIPERACILLIN/TAZOBACTAM 3,375 MG in SODIUM CHLORIDE 0.9% 100 ML IV SCH ×3 (02:28→17:50)
[2018-10-05] MEDS: METOPROLOL TARTRATE 25 MG TABLET PO SCH ×2 (09:29→21:04)
[2018-10-05] MEDS: LISINOPRIL 5 MG TABLET PO SCH ×2 (09:29→21:04)
[2018-10-05] MEDS: PANTOPRAZOLE 40 MG TABLET PO SCH (09:30)
[2018-10-05] MEDS: INSULIN NPH 100 UNIT/ML SUBCUT SCH ×2 (09:30→21:04)
[2018-10-05] MEDS: ENOXAPARIN 40 MG/0.4 ML SYRINGE SUBCUT SCH (17:49)
[2018-10-05] MEDS: HYDROmorphone 2 MG/1 ML VIAL IV PRN (17:50)
[2018-10-06] MEDS: ALBUTEROL/IPRATROPIUM 3 ML NEB RESP TX SCH ×2 (00:33→07:35)
[2018-10-06] MEDS: INSULIN REGULAR 100 UNIT/ML SUBCUT SCH ×3 (00:50→12:17)
[2018-10-06] MEDS: SODIUM CHLORIDE 0.9% 1,000 ML IV SCH (00:58)
[2018-10-06] MEDS: PIPERACILLIN/TAZOBACTAM 3,375 MG in SODIUM CHLORIDE 0.9% 100 ML IV SCH ×2 (01:37→10:09)
[2018-10-06] MEDS: HYDROmorphone 2 MG/1 ML VIAL IV PRN (07:54)
[2018-10-06] MEDS: INSULIN NPH 100 UNIT/ML SUBCUT SCH (08:49)
[2018-10-06] MEDS: LISINOPRIL 5 MG TABLET PO SCH (08:49)
[2018-10-06] MEDS: METOPROLOL TARTRATE 25 MG TABLET PO SCH (08:49)
[2018-10-06] MEDS: PANTOPRAZOLE 40 MG TABLET PO SCH (08:49)
[2018-10-06] MEDS ORDERED: SODIUM HYPOCHLORITE 0.25% IRRIG 473 ML BOTTLE TOP SCH (09:00)
[2018-10-06 12:11] VITALS: BP 143/101
== END 2018-10-06 14:18 | disposition home health service (06) | DRG 623 ==
LOC: N.ED 19:09 → N.EDINP 22:30 → N.3E 10-04 00:10
PROVIDERS: ADMIT Surgery; ATTEND Surgery

== ENCOUNTER 2018-11-20 11:23 | Observation (INO) ==
[2018-11-20 12:41] LABS: Basophils % 0.3 % (0.0-0.8); Eosinophils # 0.3 10*3/uL (0.0-0.87); Eosinophils % 3.8 % (0.00-10.9); Hematocrit 35.8 VOL% (42.0-52.0); Hemoglobin 11.7 GM/DL (14.0-18.0); Immature Granulocytes % 0.3 %; Immature Granulocytes Absolute 0.02 #; Lymphocytes # 1.7 10*3/uL (1.4-4.0); Lymphocytes % 26.1 % (21.2-54.2); Mean Corpuscular HGB Conc 32.7 GM/DL (32-36); Mean Corpuscular Volume 77.8 FL (87-102); Mean Platelet Volume 10.1 FL (9.6-12.0); Neutrophils % 62.5 % (38.7-73.9); Platelet Count 342 T/CUMM (130-400); Red Cell Distribution Width 14.1 % (9.3-17.3); White Blood Count 6.6 T/CUMM (4-12)
[2018-11-20 13:00] LABS: Alanine Aminotransferase 30 U/L (16-61); Albumin 3.8 G/DL (3.4-5.0); Alkaline Phosphatase 120 U/L (45-117); Aspartate Amino Transferase 15 U/L (0-37); Bilirubin,Total < 0.39 MG/DL (0.2-1.0); Blood Urea Nitrogen 16 MG/DL (7-18); Calcium 9.4 MG/DL (8.5-10.1); Glucose 288 MG/DL (74-106); Osmolality,Calculated 286.7 MOS/KG (273-304); Total Protein 8.2 G/DL (6.4-8.3)
[2018-11-20] MEDS ORDERED: GLUCAGON 1 MG VIAL IM PRN (14:44)
[2018-11-20] MEDS ORDERED: BISACODYL 5 MG TABLET PO PRN (14:44)
[2018-11-20] MEDS ORDERED: ACETAMINOPHEN 325 MG TABLET PO PRN (14:44)
[2018-11-20] MEDS ORDERED: DEXTROSE 50% 25 GM/50 ML VIAL IV PRN (14:44)
[2018-11-20] MEDS ORDERED: ALBUTEROL/IPRATROPIUM 3 ML NEB RESP TX PRN (14:44)
[2018-11-20] MEDS ORDERED: ONDANSETRON 4 MG/2 ML VIAL IV PRN (14:44)
[2018-11-20] MEDS ORDERED: hydrALAZINE 20 MG/1 ML VIAL ONE (15:03)
[2018-11-20] MEDS: hydrALAZINE 20 MG/1 ML VIAL IV PRN (15:08)
[2018-11-20] MEDS: HYDROmorphone 2 MG/1 ML VIAL IV PRN ×3 (15:54→23:54)
[2018-11-20] MEDS: LACTATED RINGERS 1,000 ML IV SCH (16:42)
[2018-11-20] MEDS: PIPERACILLIN/TAZOBACTAM 3,375 MG in SODIUM CHLORIDE 0.9% 100 ML IV SCH ×2 (16:43→23:50)
[2018-11-20] MEDS: INSULIN LISPRO 100 UNIT/ML SUBCUT SCH (17:19)
[2018-11-20] MEDS ORDERED: SKIN HEALING OINT (AQUAPHOR) 50 GM TUBE TOP PRN (17:32)
[2018-11-20] MEDS: SODIUM HYPOCHLORITE 0.25% IRRIG 473 ML BOTTLE TOP SCH (19:55)
[2018-11-20] MEDS: LISINOPRIL 5 MG TABLET PO SCH (20:20)
[2018-11-20] MEDS: METOPROLOL TARTRATE 25 MG TABLET PO SCH (20:20)
[2018-11-21] MEDS: HYDROmorphone 2 MG/1 ML VIAL IV PRN (04:18)
[2018-11-21 04:52] LABS: Basophils % 0.4 % (0.0-0.8); Eosinophils # 0.2 10*3/uL (0.0-0.87); Eosinophils % 3.5 % (0.00-10.9); Hematocrit 35.9 VOL% (42.0-52.0); Hemoglobin 11.7 GM/DL (14.0-18.0); Immature Granulocytes % 0.3 %; Immature Granulocytes Absolute 0.02 #; Lymphocytes # 1.4 10*3/uL (1.4-4.0); Lymphocytes % 20.3 % (21.2-54.2); Mean Corpuscular HGB Conc 32.6 GM/DL (32-36); Mean Corpuscular Volume 78.7 FL (87-102); Monocytes % 6.4 % (1.7-12.7); Neutrophils % 69.1 % (38.7-73.9); Platelet Count 332 T/CUMM (130-400); Red Blood Count 4.56 MC/CUMM (3.8-5.5); Red Cell Distribution Width 14.3 % (9.3-17.3); White Blood Count 6.9 T/CUMM (4-12)
[2018-11-21 05:13] LABS: Calcium 9.3 MG/DL (8.5-10.1); Osmolality,Calculated 284.8 MOS/KG (273-304)
[2018-11-21] MEDS: PIPERACILLIN/TAZOBACTAM 3,375 MG in SODIUM CHLORIDE 0.9% 100 ML IV SCH (06:53)
[2018-11-21] MEDS: LACTATED RINGERS 1,000 ML IV SCH (06:54)
[2018-11-21] MEDS: METOPROLOL TARTRATE 25 MG TABLET PO SCH (08:34)
[2018-11-21] MEDS: LISINOPRIL 5 MG TABLET PO SCH (08:34)
[2018-11-21] MEDS: INSULIN LISPRO 100 UNIT/ML SUBCUT SCH ×2 (08:35→12:48)
[2018-11-21] MEDS ORDERED: PANTOPRAZOLE 40 MG TABLET PO SCH (09:00)
[2018-11-21] MEDS ORDERED: ENOXAPARIN 40 MG/0.4 ML SYRINGE SUBCUT SCH (09:00)
[2018-11-21] MEDS: hydrALAZINE 20 MG/1 ML VIAL IV PRN (10:03)
[2018-11-21] MEDS: SODIUM HYPOCHLORITE 0.25% IRRIG 473 ML BOTTLE TOP SCH (11:00)
[2018-11-21 12:27] VITALS: BP 126/87
== END 2018-11-21 13:38 | disposition home health service (06) ==
LOC: N.ED 11:23 → N.EDINP 11:23 → N.5E 15:44
PROVIDERS: ADMIT Surgery; ATTEND Surgery

== ENCOUNTER 2019-03-26 19:39 | Inpatient (IN) ==
[2019-03-26] MEDS ORDERED: VANCOMYCIN INJ 1,000 MG in SODIUM CHLORIDE 0.9% 250 ML IV STA (20:22)
[2019-03-26 20:53] LABS: Basophils % 0.4 % (0.0-0.8); Eosinophils # 0.2 10*3/uL (0.0-0.87); Eosinophils % 3.2 % (0.00-10.9); Hematocrit 39.5 VOL% (42.0-52.0); Immature Granulocytes % 0.2 %; Immature Granulocytes Absolute 0.01 #; Lymphocytes # 1.5 10*3/uL (1.4-4.0); Lymphocytes % 32.3 % (21.2-54.2); Mean Corpuscular HGB Conc 32.9 GM/DL (32-36); Mean Corpuscular Volume 77.8 FL (87-102); Mean Platelet Volume 10.4 FL (9.6-12.0); Monocytes % 8.5 % (1.7-12.7); Neutrophils % 55.4 % (38.7-73.9); Platelet Count 263 T/CUMM (130-400); Red Blood Count 5.08 MC/CUMM (3.8-5.5); Red Cell Distribution Width 13.2 % (9.3-17.3); White Blood Count 4.7 T/CUMM (4-12)
[2019-03-26 21:11] LABS: Alanine Aminotransferase 29 U/L (16-61); Albumin 3.7 G/DL (3.4-5.0); Alkaline Phosphatase 117 U/L (45-117); Aspartate Amino Transferase 18 U/L (0-37); Bilirubin,Total < 0.39 MG/DL (0.2-1.0); Blood Urea Nitrogen 23 MG/DL (7-18); Calcium 9.8 MG/DL (8.5-10.1); Estimated Glom Filtration Rate 89 ML/MIN; Glucose 332 MG/DL (74-106); Osmolality,Calculated 282.4 MOS/KG (273-304); Total Protein 8.2 G/DL (6.4-8.3)
[2019-03-26] MEDS ORDERED: HYDROmorphone 2 MG/1 ML VIAL IV ONE (21:30)
[2019-03-26] MEDS ORDERED: ONDANSETRON 4 MG/2 ML VIAL IV STA (21:30)
[2019-03-26] MEDS ORDERED: DEXTROSE 50% 25 GM/50 ML VIAL IV PRN (21:50)
[2019-03-26] MEDS ORDERED: GLUCAGON 1 MG VIAL IM PRN (21:50)
[2019-03-26] MEDS ORDERED: ACETAMINOPHEN 325 MG TABLET PO PRN (21:50)
[2019-03-26] MEDS ORDERED: ONDANSETRON 4 MG/2 ML VIAL IV PRN (21:50)
[2019-03-26] MEDS: INSULIN REGULAR 100 UNIT/ML SUBCUT SCH (22:15)
[2019-03-26] MEDS: SODIUM CHLORIDE 0.9% 1,000 ML IV SCH (23:44)
[2019-03-27] MEDS ORDERED: VANCOMYCIN INJ 1,000 MG in SODIUM CHLORIDE 0.9% 250 ML IV ONE
[2019-03-27] MEDS: HYDROmorphone 2 MG/1 ML VIAL IV PRN ×4 (01:24→16:15)
[2019-03-27 06:27] LABS: Basophils % 0.8 % (0.0-0.8); Eosinophils # 0.2 10*3/uL (0.0-0.87); Eosinophils % 4.4 % (0.00-10.9); Hematocrit 39.5 VOL% (42.0-52.0); Hemoglobin 13.1 GM/DL (14.0-18.0); Lymphocytes # 1.5 10*3/uL (1.4-4.0); Lymphocytes % 37.6 % (21.2-54.2); Mean Corpuscular HGB Conc 33.2 GM/DL (32-36); Mean Corpuscular Volume 77.9 FL (87-102); Mean Platelet Volume 10.5 FL (9.6-12.0); Monocytes % 9.3 % (1.7-12.7); Neutrophils % 47.9 % (38.7-73.9); Platelet Count 223 T/CUMM (130-400); Red Blood Count 5.07 MC/CUMM (3.8-5.5); Red Cell Distribution Width 13.3 % (9.3-17.3); White Blood Count 3.9 T/CUMM (4-12)
[2019-03-27 06:59] LABS: Alanine Aminotransferase 28 U/L (16-61); Albumin 3.6 G/DL (3.4-5.0); Alkaline Phosphatase 100 U/L (45-117); Aspartate Amino Transferase 16 U/L (0-37); Bilirubin,Total < 0.39 MG/DL (0.2-1.0); Blood Urea Nitrogen 20 MG/DL (7-18); Calcium 9.3 MG/DL (8.5-10.1); Estimated Glom Filtration Rate 125 ML/MIN; Glucose 191 MG/DL (74-106); Total Protein 7.7 G/DL (6.4-8.3)
[2019-03-27] MEDS ORDERED: LORazepam 1 MG TABLET PO ONE (09:00)
[2019-03-27] MEDS ORDERED: GABAPENTIN 400 MG CAPSULE PO ONE (09:00)
[2019-03-27] MEDS ORDERED: ACETAMINOPHEN 500 MG TABLET PO ONE (09:00)
[2019-03-27] MEDS ORDERED: PANTOPRAZOLE 40 MG TABLET PO ONE (09:00)
[2019-03-27] MEDS: INSULIN REGULAR 100 UNIT/ML SUBCUT SCH ×4 (09:10→21:24)
[2019-03-27] MEDS: CEFEPIME 1,000 MG in SODIUM CHLORIDE 0.9% 100 ML IV SCH ×3 (09:11→20:42)
[2019-03-27] MEDS: VANCOMYCIN INJ 2,000 MG in SODIUM CHLORIDE 0.9% 500 ML IV SCH ×2 (09:49→21:26)
[2019-03-27] MEDS ORDERED: LABETALOL 20 MG/4 ML SYRINGE IV ONE (13:42)
[2019-03-27] MEDS ORDERED: MIDAZOLAM 2 MG/2 ML VIAL ONE (13:45)
[2019-03-27] MEDS ORDERED: PROPOFOL 200 MG/20 ML VIAL IV ONE (13:45)
[2019-03-27] MEDS ORDERED: LIDOCAINE 2% 5 ML VIAL ONE (13:45)
[2019-03-27] MEDS ORDERED: DEXTROSE 50% 25 GM/50 ML VIAL IV PRN (15:00)
[2019-03-27] MEDS ORDERED: GLUCAGON 1 MG VIAL IM PRN (15:00)
[2019-03-27] MEDS: SODIUM CHLORIDE 0.9% 1,000 ML IV SCH (16:16)
[2019-03-27] MEDS: GABAPENTIN 300 MG CAPSULE PO SCH (20:41)
[2019-03-27] MEDS: LISINOPRIL 5 MG TABLET PO SCH (20:41)
[2019-03-27] MEDS: METOPROLOL TARTRATE 25 MG TABLET PO SCH (20:41)
[2019-03-27] MEDS ORDERED: INSULIN GLARGINE 100 UNIT/ML SUBCUT SCH (21:00)
[2019-03-28] MEDS: CEFEPIME 1,000 MG in SODIUM CHLORIDE 0.9% 100 ML IV SCH ×5 (02:20→21:16)
[2019-03-28] MEDS: SODIUM CHLORIDE 0.9% 1,000 ML IV SCH (05:55)
[2019-03-28] MEDS ORDERED: INSULIN GLARGINE 100 UNIT/ML SUBCUT SCH (09:00)
[2019-03-28] MEDS: INSULIN REGULAR 100 UNIT/ML SUBCUT SCH ×4 (09:06→21:15)
[2019-03-28] MEDS: LISINOPRIL 5 MG TABLET PO SCH (09:08)
[2019-03-28] MEDS: METOPROLOL TARTRATE 25 MG TABLET PO SCH ×2 (09:08→22:02)
[2019-03-28] MEDS: DOCUSATE SODIUM 100 MG CAPSULE PO SCH ×2 (09:08→21:13)
[2019-03-28] MEDS: VANCOMYCIN INJ 2,000 MG in SODIUM CHLORIDE 0.9% 500 ML IV SCH ×2 (09:54→22:02)
[2019-03-28] MEDS: PANTOPRAZOLE 40 MG TABLET PO SCH (11:33)
[2019-03-28] MEDS: HYDROmorphone 2 MG/1 ML VIAL IV PRN ×2 (11:41→21:09)
[2019-03-28] MEDS ORDERED: hydrALAZINE 20 MG/1 ML VIAL IV ONE ×2 (12:00→16:18)
[2019-03-28] MEDS ORDERED: hydrALAZINE 20 MG/1 ML VIAL IV PRN (16:18)
[2019-03-28] MEDS: GABAPENTIN 300 MG CAPSULE PO SCH (21:13)
[2019-03-28] MEDS: LISINOPRIL 10 MG TABLET PO SCH (22:02)
[2019-03-29] MEDS: CEFEPIME 1,000 MG in SODIUM CHLORIDE 0.9% 100 ML IV SCH ×2 (01:47→08:40)
[2019-03-29 05:36] LABS: Basophils % 0.5 % (0.0-0.8); Eosinophils # 0.2 10*3/uL (0.0-0.87); Eosinophils % 4.6 % (0.00-10.9); Hematocrit 38.4 VOL% (42.0-52.0); Hemoglobin 12.8 GM/DL (14.0-18.0); Immature Granulocytes % 0.3 %; Immature Granulocytes Absolute 0.01 #; Lymphocytes # 1.2 10*3/uL (1.4-4.0); Lymphocytes % 31.3 % (21.2-54.2); Mean Corpuscular HGB Conc 33.3 GM/DL (32-36); Mean Corpuscular Volume 77.6 FL (87-102); Mean Platelet Volume 10.2 FL (9.6-12.0); Monocytes % 10.2 % (1.7-12.7); Neutrophils % 53.1 % (38.7-73.9); Platelet Count 223 T/CUMM (130-400); Red Blood Count 4.95 MC/CUMM (3.8-5.5); Red Cell Distribution Width 13.1 % (9.3-17.3); White Blood Count 3.7 T/CUMM (4-12)
[2019-03-29 05:48] LABS: Calcium 9.2 MG/DL (8.5-10.1); Osmolality,Calculated 280.1 MOS/KG (273-304)
[2019-03-29] MEDS: HYDROmorphone 2 MG/1 ML VIAL IV PRN ×2 (07:32→21:40)
[2019-03-29] MEDS: INSULIN REGULAR 100 UNIT/ML SUBCUT SCH ×4 (08:40→21:32)
[2019-03-29] MEDS: LISINOPRIL 10 MG TABLET PO SCH ×2 (08:40→21:32)
[2019-03-29] MEDS: PANTOPRAZOLE 40 MG TABLET PO SCH (08:41)
[2019-03-29] MEDS: DOCUSATE SODIUM 100 MG CAPSULE PO SCH ×2 (08:41→21:32)
[2019-03-29] MEDS: METOPROLOL TARTRATE 25 MG TABLET PO SCH ×2 (08:41→21:32)
[2019-03-29] MEDS: INSULIN GLARGINE 100 UNIT/ML SUBCUT SCH (09:41)
[2019-03-29] MEDS ORDERED: SKIN HEALING OINT (AQUAPHOR) 50 GM TUBE TOP PRN (12:56)
[2019-03-29] MEDS: LEVOFLOXACIN INJ 750 MG in PREMIX 1 EACH IV SCH (17:06)
[2019-03-29] MEDS: CHLORHEXIDINE 4% SOLN 118 ML BOTTLE TOP SCH (17:07)
[2019-03-29] MEDS: GABAPENTIN 300 MG CAPSULE PO SCH (21:32)
[2019-03-29] MEDS: FLUTICASONE 50 MCG NASAL SPRAY 16 GM BOTTLE BOTH NARES SCH (21:33)
[2019-03-30] MEDS: INSULIN REGULAR 100 UNIT/ML SUBCUT SCH ×4 (08:14→20:49)
[2019-03-30] MEDS: FLUTICASONE 50 MCG NASAL SPRAY 16 GM BOTTLE BOTH NARES SCH ×2 (08:27→20:30)
[2019-03-30] MEDS: DOCUSATE SODIUM 100 MG CAPSULE PO SCH ×2 (08:28→20:30)
[2019-03-30] MEDS: LISINOPRIL 10 MG TABLET PO SCH ×2 (08:28→20:30)
[2019-03-30] MEDS: INSULIN GLARGINE 100 UNIT/ML SUBCUT SCH (08:28)
[2019-03-30] MEDS: METOPROLOL TARTRATE 25 MG TABLET PO SCH ×2 (08:29→20:30)
[2019-03-30] MEDS: PANTOPRAZOLE 40 MG TABLET PO SCH (08:29)
[2019-03-30] MEDS: LEVOFLOXACIN INJ 750 MG in PREMIX 1 EACH IV SCH (08:30)
[2019-03-30] MEDS: SODIUM CHLORIDE 0.9% 1,000 ML IV SCH ×2 (08:37→22:14)
[2019-03-30] MEDS: CHLORHEXIDINE 4% SOLN 118 ML BOTTLE TOP SCH (09:39)
[2019-03-30] MEDS: HYDROmorphone 2 MG/1 ML VIAL IV PRN ×2 (10:14→19:09)
[2019-03-30] MEDS: GABAPENTIN 300 MG CAPSULE PO SCH (20:30)
[2019-03-30] MEDS ORDERED: ZALEPLON 5 MG CAPSULE PO PRN (22:05)
[2019-03-31] MEDS: HYDROmorphone 2 MG/1 ML VIAL IV PRN (04:29)
[2019-03-31] MEDS: INSULIN GLARGINE 100 UNIT/ML SUBCUT SCH (09:03)
[2019-03-31] MEDS: LISINOPRIL 10 MG TABLET PO SCH (09:03)
[2019-03-31] MEDS: PANTOPRAZOLE 40 MG TABLET PO SCH (09:03)
[2019-03-31] MEDS: METOPROLOL TARTRATE 25 MG TABLET PO SCH (09:03)
[2019-03-31] MEDS: DOCUSATE SODIUM 100 MG CAPSULE PO SCH (09:03)
[2019-03-31] MEDS: FLUTICASONE 50 MCG NASAL SPRAY 16 GM BOTTLE BOTH NARES SCH (09:04)
[2019-03-31] MEDS: LEVOFLOXACIN INJ 750 MG in PREMIX 1 EACH IV SCH (09:04)
[2019-03-31] MEDS: INSULIN REGULAR 100 UNIT/ML SUBCUT SCH ×2 (09:04→12:04)
[2019-03-31] MEDS: CHLORHEXIDINE 4% SOLN 118 ML BOTTLE TOP SCH (09:05)
[2019-03-31 12:03] VITALS: BP 147/99
[2019-03-31] MEDS: SODIUM CHLORIDE 0.9% 1,000 ML IV SCH (13:14)
== END 2019-03-31 12:55 | disposition home health service (06) | DRG 264 ==
LOC: N.ED 19:39 → SUATTDRO 21:50 → N.EDINP 21:50 → N.2E 22:53
PROVIDERS: ADMIT Internal Medicine; ATTEND Internal Medicine

== ENCOUNTER 2019-09-17 11:03 | Inpatient (IN) ==
[2019-09-17 12:08] LABS: Basophils % 0.3 % (0.0-0.8); Eosinophils # 0.3 10*3/uL (0.0-0.87); Hematocrit 37.9 VOL% (42.0-52.0); Hemoglobin 12.1 GM/DL (14.0-18.0); Immature Granulocytes % 0.2 %; Immature Granulocytes Absolute 0.01 #; Lymphocytes # 1.3 10*3/uL (1.4-4.0); Lymphocytes % 21.8 % (21.2-54.2); Mean Corpuscular HGB Conc 31.9 GM/DL (32-36); Mean Corpuscular Volume 79.5 FL (87-102); Mean Platelet Volume 10.1 FL (9.6-12.0); Monocytes % 8.4 % (1.7-12.7); Neutrophils % 64.3 % (38.7-73.9); Platelet Count 294 T/CUMM (130-400); Red Blood Count 4.77 MC/CUMM (3.8-5.5); Red Cell Distribution Width 14.3 % (9.3-17.3); White Blood Count 5.8 T/CUMM (4-12)
[2019-09-17 12:31] LABS: Alanine Aminotransferase 28 U/L (16-61); Albumin 3.4 G/DL (3.4-5.0); Alkaline Phosphatase 113 U/L (45-117); Aspartate Amino Transferase 20 U/L (0-37); Bilirubin,Total < 0.39 MG/DL (0.2-1.0); Blood Urea Nitrogen 17 MG/DL (7-18); Estimated Glom Filtration Rate 581 ML/MIN; Glucose 260 MG/DL (74-106); Osmolality,Calculated 278.2 MOS/KG (273-304); Total Protein 8.3 G/DL (6.4-8.3)
[2019-09-17] MEDS ORDERED: NICOTINE 21 MG/24 HR PATCH TRANSDERM PRN (12:50)
[2019-09-17] MEDS ORDERED: LACTULOSE 20 GM/30 ML UDCUP PO PRN (12:50)
[2019-09-17] MEDS ORDERED: GLUCAGON 1 MG VIAL IM PRN (12:50)
[2019-09-17] MEDS ORDERED: ONDANSETRON 4 MG/2 ML VIAL IV PRN (12:50)
[2019-09-17] MEDS ORDERED: DEXTROSE 50% 25 GM/50 ML VIAL IV PRN (12:50)
[2019-09-17] MEDS ORDERED: hydrALAZINE 20 MG/1 ML VIAL IV PRN (12:59)
[2019-09-17] MEDS ORDERED: DEXTROSE 10% 250 ML BAG IV PRN (13:41)
[2019-09-17] MEDS: SODIUM CHLORIDE 0.9% 1,000 ML IV SCH (14:31)
[2019-09-17] MEDS: cefTRIAXone 1,000 MG in SYRINGE 1 EACH IV SCH (14:34)
[2019-09-17] MEDS: VANCOMYCIN INJ 2,000 MG in SODIUM CHLORIDE 0.9% 500 ML IV SCH (15:43)
[2019-09-17] MEDS: INSULIN REGULAR 100 UNIT/ML SUBCUT SCH ×2 (18:35→20:43)
[2019-09-17] MEDS: GABAPENTIN 300 MG CAPSULE PO SCH (20:42)
[2019-09-17] MEDS: METOPROLOL TARTRATE 25 MG TABLET PO SCH (20:43)
[2019-09-17] MEDS: INSULIN NPH/REGULAR 70/30 100 UNIT/ML SUBCUT SCH (20:43)
[2019-09-18] MEDS: SODIUM CHLORIDE 0.9% 1,000 ML IV SCH ×2 (03:07→16:40)
[2019-09-18] MEDS: VANCOMYCIN INJ 2,000 MG in SODIUM CHLORIDE 0.9% 500 ML IV SCH ×2 (03:41→16:42)
[2019-09-18 07:18] LABS: Basophils % 0.4 % (0.0-0.8); Eosinophils # 0.3 10*3/uL (0.0-0.87); Hematocrit 35.7 VOL% (42.0-52.0); Hemoglobin 11.8 GM/DL (14.0-18.0); Immature Granulocytes % 0.4 %; Immature Granulocytes Absolute 0.02 #; Lymphocytes # 1.3 10*3/uL (1.4-4.0); Lymphocytes % 24.3 % (21.2-54.2); Mean Corpuscular HGB Conc 33.1 GM/DL (32-36); Mean Corpuscular Volume 77.8 FL (87-102); Mean Platelet Volume 10.6 FL (9.6-12.0); Monocytes % 8.1 % (1.7-12.7); Neutrophils % 61.8 % (38.7-73.9); Platelet Count 255 T/CUMM (130-400); Red Blood Count 4.59 MC/CUMM (3.8-5.5); Red Cell Distribution Width 14.6 % (9.3-17.3); White Blood Count 5.2 T/CUMM (4-12)
[2019-09-18 07:33] LABS: % Iron Saturation 14.8 % (18-50); Calcium 8.6 MG/DL (8.5-10.1); Ferritin 52.7 ng/ml (26-388); Osmolality,Calculated 278.5 MOS/KG (273-304); Risk Ratio 4.89; VLDL CHOLESTEROL 16.6 MG/DL
[2019-09-18] MEDS: INSULIN REGULAR 100 UNIT/ML SUBCUT SCH ×4 (07:46→21:36)
[2019-09-18] MEDS: METOPROLOL TARTRATE 25 MG TABLET PO SCH ×2 (08:08→21:35)
[2019-09-18] MEDS: INSULIN NPH/REGULAR 70/30 100 UNIT/ML SUBCUT SCH ×2 (09:48→21:36)
[2019-09-18] MEDS ORDERED: LIDOCAINE 1% 20 ML VIAL ONE (12:21)
[2019-09-18] MEDS ORDERED: fentaNYL 100 MCG/2 ML VIAL ONE (15:10)
[2019-09-18] MEDS ORDERED: ePHEDrine 50 MG/ML AMP ONE (15:12)
[2019-09-18] MEDS ORDERED: ONDANSETRON 4 MG/2 ML VIAL ONE (15:12)
[2019-09-18] MEDS ORDERED: LIDOCAINE 2% 5 ML VIAL ONE (15:12)
[2019-09-18] MEDS ORDERED: SEVOFLURANE 1 UNIT/15 MINUTE INH ONE (15:12)
[2019-09-18] MEDS ORDERED: MIDAZOLAM 2 MG/2 ML VIAL ONE (15:12)
[2019-09-18] MEDS ORDERED: propofoL 200 MG/20 ML VIAL IV ONE (15:12)
[2019-09-18] MEDS: cefTRIAXone 1,000 MG in SYRINGE 1 EACH IV SCH (16:33)
[2019-09-18] MEDS ORDERED: NITROGLYCERIN SL 0.4 MG TABLET SL PRN (17:50)
[2019-09-18] MEDS: ASPIRIN EC 325 MG TABLET PO SCH (18:23)
[2019-09-18 18:39] LABS: Troponin I 0.148 NG/ML (0.00-0.045)
[2019-09-18] MEDS ORDERED: hydrALAZINE 25 MG TABLET PO SCH (21:00)
[2019-09-18 21:23] LABS: CKMB % 1.6 %; Troponin I 0.139 NG/ML (0.00-0.045)
[2019-09-18] MEDS: GABAPENTIN 300 MG CAPSULE PO SCH (21:34)
[2019-09-19 00:21] LABS: CKMB % 2.2 %
[2019-09-19 00:24] LABS: Troponin I 0.147 NG/ML (0.00-0.045)
[2019-09-19] MEDS: SODIUM CHLORIDE 0.9% 1,000 ML IV SCH (02:37)
[2019-09-19] MEDS: VANCOMYCIN INJ 2,000 MG in SODIUM CHLORIDE 0.9% 500 ML IV SCH (05:12)
[2019-09-19] MEDS: INSULIN NPH/REGULAR 70/30 100 UNIT/ML SUBCUT SCH ×2 (08:57→21:06)
[2019-09-19] MEDS: METOPROLOL TARTRATE 25 MG TABLET PO SCH ×2 (08:57→20:29)
[2019-09-19] MEDS: IRON (CARBONYL)/VIT C/B12/FA TABLET PO SCH (08:57)
[2019-09-19] MEDS: FUROSEMIDE 20 MG TABLET PO SCH (08:57)
[2019-09-19] MEDS: ATORVASTATIN 40 MG TABLET PO SCH (08:57)
[2019-09-19] MEDS: INSULIN REGULAR 100 UNIT/ML SUBCUT SCH ×4 (08:58→21:07)
[2019-09-19] MEDS: ASPIRIN EC 325 MG TABLET PO SCH (08:59)
[2019-09-19] MEDS ORDERED: SKIN HEALING OINT (AQUAPHOR) 50 GM TUBE TOP PRN (10:50)
[2019-09-19] MEDS ORDERED: FUROSEMIDE 40 MG/4 ML VIAL IV ONE (11:02)
[2019-09-19] MEDS: ALBUTEROL/IPRATROPIUM 3 ML NEB RESP TX SCH ×2 (13:00→19:25)
[2019-09-19] MEDS: cefTRIAXone 1,000 MG in SYRINGE 1 EACH IV SCH (13:31)
[2019-09-19] MEDS: VANCOMYCIN INJ 1,750 MG in SODIUM CHLORIDE 0.9% 500 ML IV SCH ×2 (13:37→23:43)
[2019-09-19] MEDS: GABAPENTIN 300 MG CAPSULE PO SCH (20:28)
[2019-09-20] MEDS: ALBUTEROL/IPRATROPIUM 3 ML NEB RESP TX SCH ×3 (01:34→13:15)
[2019-09-20] MEDS: VANCOMYCIN INJ 1,750 MG in SODIUM CHLORIDE 0.9% 500 ML IV SCH (06:07)
[2019-09-20 06:35] LABS: Calcium 8.7 MG/DL (8.5-10.1); Osmolality,Calculated 271.1 MOS/KG (273-304)
[2019-09-20] MEDS ORDERED: POTASSIUM CHLORIDE 20 MEQ TABLET PO PRN (07:33)
[2019-09-20] MEDS: INSULIN NPH/REGULAR 70/30 100 UNIT/ML SUBCUT SCH (09:29)
[2019-09-20] MEDS: IRON (CARBONYL)/VIT C/B12/FA TABLET PO SCH (09:31)
[2019-09-20] MEDS: ATORVASTATIN 40 MG TABLET PO SCH (09:31)
[2019-09-20] MEDS: METOPROLOL TARTRATE 25 MG TABLET PO SCH (09:31)
[2019-09-20] MEDS: ASPIRIN EC 325 MG TABLET PO SCH (09:31)
[2019-09-20] MEDS: FUROSEMIDE 20 MG TABLET PO SCH (09:32)
[2019-09-20] MEDS: INSULIN REGULAR 100 UNIT/ML SUBCUT SCH ×2 (09:33→13:25)
[2019-09-20 12:22] VITALS: BP 179/95
[2019-09-20] MEDS ORDERED: FUROSEMIDE 40 MG/4 ML VIAL IV ONE (12:23)
[2019-09-20] MEDS ORDERED: LISINOPRIL/HCTZ 10-12.5 MG TABLET PO SCH (12:30)
[2019-09-20] MEDS ORDERED: FUROSEMIDE 40 MG TABLET PO ONE (14:28)
[2019-09-20] MEDS: cefTRIAXone 1,000 MG in SYRINGE 1 EACH IV SCH (14:42)
[2019-09-20] MEDS: SODIUM CHLORIDE 0.9% 1,000 ML IV SCH (14:49)
[2019-09-20] MEDS ORDERED: carvediloL 12.5 MG TABLET PO SCH (21:00)
== END 2019-09-20 15:21 | disposition home or self-care (01) | DRG 264 ==
LOC: N.ED 11:03 → SUATTDRO 12:50 → N.EDINP 12:50 → N.3E 13:38 → N.TELEN 09-18 20:41
PROVIDERS: ADMIT Internal Medicine; ATTEND Internal Medicine

== ENCOUNTER 2019-10-15 12:58 | Inpatient (IN) ==
[2019-10-15] MEDS ORDERED: PIPERACILLIN/TAZOBACTAM 3,375 MG in SODIUM CHLORIDE 0.9% 100 ML IV STA ×2 (16:12→16:16)
[2019-10-15] MEDS ORDERED: hydrALAZINE 20 MG/1 ML VIAL ONE (16:25)
[2019-10-15] MEDS ORDERED: hydrALAZINE 20 MG/1 ML VIAL IV STA (16:28)
[2019-10-15] MEDS ORDERED: ONDANSETRON 4 MG/2 ML VIAL ONE ×2 (16:52→22:08)
[2019-10-15] MEDS ORDERED: ONDANSETRON 4 MG/2 ML VIAL IV STA (16:52)
[2019-10-15] MEDS ORDERED: HYDROmorphone 2 MG/1 ML VIAL IV STA (16:52)
[2019-10-15] MEDS ORDERED: HYDROmorphone 2 MG/1 ML VIAL ONE (16:53)
[2019-10-15] MEDS ORDERED: LIDOCAINE 1%/EPI INJ 20 ML VIAL ONE (17:23)
[2019-10-15] MEDS ORDERED: BUPIVACAINE MPF 0.25% 30 ML VIAL ONE (17:24)
[2019-10-15 17:47] LABS: Basophils % 0.3 % (0.0-0.8); Eosinophils # 0.1 10*3/uL (0.0-0.87); Eosinophils % 0.8 % (0.00-10.9); Hemoglobin 11.6 GM/DL (14.0-18.0); Immature Granulocytes % 1.4 %; Immature Granulocytes Absolute 0.22 #; Lymphocytes % 6.3 % (21.2-54.2); Mean Corpuscular HGB Conc 33.1 GM/DL (32-36); Mean Corpuscular Volume 74.8 FL (87-102); Mean Platelet Volume 9.9 FL (9.6-12.0); Monocytes % 7.4 % (1.7-12.7); Neutrophils % 83.8 % (38.7-73.9); Platelet Count 423 T/CUMM (130-400); Red Blood Count 4.68 MC/CUMM (3.8-5.5); Red Cell Distribution Width 15.5 % (9.3-17.3)
[2019-10-15 18:00] LABS: Alanine Aminotransferase 62 U/L (16-61); Albumin 2.7 G/DL (3.4-5.0); Alkaline Phosphatase 136 U/L (45-117); Aspartate Amino Transferase 28 U/L (0-37); Bilirubin,Total < 0.39 MG/DL (0.2-1.0); Blood Urea Nitrogen 24 MG/DL (7-18); Calcium 10.2 MG/DL (8.5-10.1); Estimated Glom Filtration Rate 99 ML/MIN; Glucose 246 MG/DL (74-106); Osmolality,Calculated 277.4 MOS/KG (273-304); Total Protein 9.6 G/DL (6.4-8.3)
[2019-10-15] MEDS ORDERED: diphenhydrAMINE 50 MG/1 ML VIAL IV PRN (18:13)
[2019-10-15] MEDS ORDERED: PROMETHAZINE INJ 25 MG in SODIUM CHLORIDE 0.9% 50 ML IV PRN (18:13)
[2019-10-15] MEDS ORDERED: MEPERIDINE 25 MG/1 ML VIAL IV PRN (18:13)
[2019-10-15] MEDS ORDERED: ONDANSETRON 4 MG/2 ML VIAL IV PRN (18:13)
[2019-10-15] MEDS ORDERED: SUGAMMADEX 200 MG/2 ML VIAL IV ONE (19:09)
[2019-10-15] MEDS ORDERED: SUCCINYLCHOLINE 200 MG/10 ML VIAL ONE ×2 (19:35→22:08)
[2019-10-15] MEDS ORDERED: PHENYLEPHRINE DRIP 40 MG/250 ML PREMIX IV ONE (19:52)
[2019-10-15] MEDS ORDERED: PHENYLEPHRINE DRIP 40 MG/250 ML PREMIX IV PRN (20:03)
[2019-10-15] MEDS: LACTATED RINGERS 1,000 ML IV SCH (20:25)
[2019-10-15 21:06] LABS: Allen Test Positive; Pt O2 Delivery Device Ventilator
[2019-10-15 21:08] LABS: ABG Base Excess 1.4 MMOL/L (-2.5-2.5); ABG HCO3 25.6 MMOL/L (20-26); ABG Oxygen Saturation 96.3 % (95-100); ABG PCO2 57.2 MM HG (35-48); ABG PH 7.307 (7.35-7.45); ABG PO2 99.1 MM HG (80-95); ABG TCO2 26.5 MMOL/L (23-27)
[2019-10-15] MEDS ORDERED: LORazepam 2 MG/1 ML VIAL ONE (21:48)
[2019-10-15] MEDS ORDERED: INSULIN REGULAR 100 UNIT/ML SUBCUT SCH (21:58)
[2019-10-15] MEDS ORDERED: DEXTROSE 50% 25 GM/50 ML VIAL IV PRN (21:58)
[2019-10-15] MEDS ORDERED: GLUCAGON 1 MG VIAL IM PRN (21:58)
[2019-10-15] MEDS ORDERED: MIDAZOLAM 2 MG/2 ML VIAL ONE (22:07)
[2019-10-15] MEDS ORDERED: propofoL 200 MG/20 ML VIAL IV ONE (22:07)
[2019-10-15] MEDS ORDERED: SEVOFLURANE 1 UNIT/15 MINUTE INH ONE (22:07)
[2019-10-15] MEDS ORDERED: fentaNYL 100 MCG/2 ML VIAL ONE (22:07)
[2019-10-15] MEDS ORDERED: LIDOCAINE 2% 5 ML VIAL ONE (22:07)
[2019-10-15] MEDS ORDERED: GLYCOPYRROLATE 0.4 MG/2 ML VIAL ONE (22:08)
[2019-10-15] MEDS ORDERED: NEOSTIGMINE 10 MG/10 ML VIAL ONE (22:08)
[2019-10-15] MEDS ORDERED: ROCURONIUM 100 MG/10 ML VIAL IV ONE (22:08)
[2019-10-15] MEDS ORDERED: PHENYLEPHRINE 1 MG/10 ML SYRINGE IV ONE (22:08)
[2019-10-15] MEDS ORDERED: flumazeniL 0.5 MG/5 ML VIAL IV ONE (22:08)
[2019-10-15] MEDS ORDERED: MIDAZOLAM 10 MG/2 ML VIAL ONE (22:08)
[2019-10-15 23:30] LABS: Amorphous Crystals,Urine Occasional /HPF (Few); Apearance,Urine CLOUDY (Clear); Bilirubin,Urine Negative (Negative); Blood, Urine Small mg/dL (Negative); Glucose,Urine (UA) 50 mg/dL (Negative); Ketones,Urine Negative (Negative); Nitrite,Urine Negative (Negative); Protein,Urine 100 MG/DL; Urine Color Yellow (Yellow); Urine Specific Gravity 1.013 (1.001-1.035); Urine Urobilinogen < 2.0 EU/DL (0.2-1.0); WBC,Urine 8 /HPF (0-6)
[2019-10-16] MEDS: LEVOFLOXACIN INJ 750 MG in PREMIX 1 EACH IV SCH ×2 (00:17→23:23)
[2019-10-16 00:43] LABS: ABG Base Excess 2.9 MMOL/L (-2.5-2.5); ABG Oxygen Saturation 96.3 % (95-100); ABG PO2 90.9 MM HG (80-95); ABG TCO2 27.2 MMOL/L (23-27)
[2019-10-16] MEDS: GABAPENTIN 300 MG CAPSULE PO SCH ×2 (00:45→22:13)
[2019-10-16] MEDS: carvediloL 12.5 MG TABLET PO SCH ×3 (00:45→22:13)
[2019-10-16] MEDS ORDERED: PIPERACILLIN/TAZOBACTAM 3,375 MG in SODIUM CHLORIDE 0.9% 100 ML IV SCH (01:00)
[2019-10-16] MEDS: INSULIN REGULAR 100 UNIT/ML SUBCUT SCH ×4 (01:29→18:27)
[2019-10-16] MEDS: VANCOMYCIN INJ 2,000 MG in SODIUM CHLORIDE 0.9% 500 ML IV SCH ×3 (01:57→23:46)
[2019-10-16] MEDS: LACTATED RINGERS 1,000 ML IV SCH ×6 (02:17→23:16)
[2019-10-16 04:12] LABS: Basophils % 0.1 % (0.0-0.8); Eosinophils # 0.1 10*3/uL (0.0-0.87); Eosinophils % 0.7 % (0.00-10.9); Hematocrit 25.7 VOL% (42.0-52.0); Hemoglobin 8.4 GM/DL (14.0-18.0); Immature Granulocytes % 1.3 %; Immature Granulocytes Absolute 0.18 #; Lymphocytes % 7.2 % (21.2-54.2); Mean Corpuscular HGB Conc 32.7 GM/DL (32-36); Mean Corpuscular Volume 75.6 FL (87-102); Mean Platelet Volume 9.6 FL (9.6-12.0); Monocytes % 10.3 % (1.7-12.7); Neutrophils % 80.4 % (38.7-73.9); Platelet Count 332 T/CUMM (130-400); Red Cell Distribution Width 15.7 % (9.3-17.3); White Blood Count 13.4 T/CUMM (4-12)
[2019-10-16 04:26] LABS: ABG Base Excess 2.8 MMOL/L (-2.5-2.5); ABG HCO3 26.9 MMOL/L (20-26); ABG Oxygen Saturation 96.6 % (95-100); ABG PH 7.394 (7.35-7.45); ABG PO2 88.9 MM HG (80-95); Allen Test Positive; Pt O2 Delivery Device Ventilator
[2019-10-16 04:32] LABS: Calcium 8.7 MG/DL (8.5-10.1); Osmolality,Calculated 279.1 MOS/KG (273-304)
[2019-10-16] MEDS: ENOXAPARIN 40 MG/0.4 ML SYRINGE SUBCUT SCH (09:20)
[2019-10-16] MEDS: IRON (CARBONYL)/VIT C/B12/FA TABLET PO SCH (11:30)
[2019-10-16] MEDS: MIDAZOLAM 100 MG in SODIUM CHLORIDE 0.9% 80 ML IV PRN (11:44)
[2019-10-16] MEDS: SODIUM HYPOCHLORITE 0.25% IRRIG 473 ML BOTTLE TOP SCH (13:15)
[2019-10-16] MEDS: ALBUTEROL/IPRATROPIUM 3 ML NEB RESP TX SCH (19:32)
[2019-10-16] MEDS: ATORVASTATIN 40 MG TABLET PO SCH (22:13)
[2019-10-17] MEDS: INSULIN REGULAR 100 UNIT/ML SUBCUT SCH ×5 (00:53→23:32)
[2019-10-17] MEDS: ALBUTEROL/IPRATROPIUM 3 ML NEB RESP TX SCH ×4 (00:54→19:17)
[2019-10-17] MEDS: LACTATED RINGERS 1,000 ML IV SCH ×5 (01:35→17:01)
[2019-10-17 03:18] LABS: ABG Base Excess 3.1 MMOL/L (-2.5-2.5); ABG HCO3 27.2 MMOL/L (20-26); ABG Oxygen Saturation 98.4 % (95-100); ABG PCO2 42.7 MM HG (35-48); ABG PH 7.421 (7.35-7.45); ABG TCO2 25.9 MMOL/L (23-27); Allen Test Positive; Pt O2 Delivery Device Ventilator
[2019-10-17 04:43] LABS: Basophils % 0.2 % (0.0-0.8); Eosinophils # 0.1 10*3/uL (0.0-0.87); Eosinophils % 0.8 % (0.00-10.9); Hematocrit 23.8 VOL% (42.0-52.0); Hemoglobin 7.5 GM/DL (14.0-18.0); Immature Granulocytes % 2.4 %; Immature Granulocytes Absolute 0.28 #; Lymphocytes % 8.6 % (21.2-54.2); Mean Corpuscular HGB Conc 31.5 GM/DL (32-36); Mean Corpuscular Volume 77.5 FL (87-102); Mean Platelet Volume 9.3 FL (9.6-12.0); Monocytes % 11.9 % (1.7-12.7); Neutrophils % 76.1 % (38.7-73.9); Platelet Count 296 T/CUMM (130-400); Red Blood Count 3.07 MC/CUMM (3.8-5.5); Red Cell Distribution Width 15.7 % (9.3-17.3); White Blood Count 11.4 T/CUMM (4-12)
[2019-10-17 04:48] LABS: Calcium 8.6 MG/DL (8.5-10.1); Osmolality,Calculated 279.8 MOS/KG (273-304)
[2019-10-17] MEDS: MIDAZOLAM 100 MG in SODIUM CHLORIDE 0.9% 80 ML IV PRN (06:25)
[2019-10-17] MEDS: HYDROmorphone 2 MG/1 ML VIAL IV PRN ×2 (07:49→16:40)
[2019-10-17] MEDS: IRON (CARBONYL)/VIT C/B12/FA TABLET PO SCH (08:29)
[2019-10-17] MEDS: ENOXAPARIN 40 MG/0.4 ML SYRINGE SUBCUT SCH (08:30)
[2019-10-17] MEDS: carvediloL 12.5 MG TABLET PO SCH ×2 (08:30→20:36)
[2019-10-17] MEDS: SODIUM HYPOCHLORITE 0.25% IRRIG 473 ML BOTTLE TOP SCH (08:42)
[2019-10-17] MEDS: VANCOMYCIN INJ 2,000 MG in SODIUM CHLORIDE 0.9% 500 ML IV SCH (12:30)
[2019-10-17] MEDS: GABAPENTIN 300 MG CAPSULE PO SCH (20:35)
[2019-10-17] MEDS: ATORVASTATIN 40 MG TABLET PO SCH (20:37)
[2019-10-17] MEDS: LEVOFLOXACIN INJ 750 MG in PREMIX 1 EACH IV SCH (23:33)
[2019-10-18] MEDS: ALBUTEROL/IPRATROPIUM 3 ML NEB RESP TX SCH ×4 (00:15→19:02)
[2019-10-18] MEDS: LINEZOLID INJ 600 MG in PREMIX 1 EACH IV SCH ×2 (03:42→13:14)
[2019-10-18 03:51] LABS: Basophils % 0.2 % (0.0-0.8); Eosinophils # 0.2 10*3/uL (0.0-0.87); Eosinophils % 1.3 % (0.00-10.9); Hematocrit 23.1 VOL% (42.0-52.0); Hemoglobin 7.5 GM/DL (14.0-18.0); Immature Granulocytes % 3.1 %; Immature Granulocytes Absolute 0.39 #; Lymphocytes # 1.1 10*3/uL (1.4-4.0); Lymphocytes % 8.5 % (21.2-54.2); Mean Corpuscular HGB Conc 32.5 GM/DL (32-36); Mean Corpuscular Volume 77.5 FL (87-102); Mean Platelet Volume 9.3 FL (9.6-12.0); Monocytes % 10.8 % (1.7-12.7); Neutrophils % 76.1 % (38.7-73.9); Platelet Count 296 T/CUMM (130-400); Red Blood Count 2.98 MC/CUMM (3.8-5.5); Red Cell Distribution Width 15.8 % (9.3-17.3); White Blood Count 12.5 T/CUMM (4-12)
[2019-10-18 04:00] LABS: Osmolality,Calculated 282.7 MOS/KG (273-304)
[2019-10-18] MEDS: LACTATED RINGERS 1,000 ML IV SCH ×4 (04:05→18:23)
[2019-10-18 04:54] LABS: ABG HCO3 27.1 MMOL/L (20-26); ABG Oxygen Saturation 98.5 % (95-100); ABG PCO2 40.1 MM HG (35-48); ABG PH 7.441 (7.35-7.45); ABG TCO2 25.7 MMOL/L (23-27); Allen Test Positive; Pt O2 Delivery Device Ventilator
[2019-10-18 05:51] LABS: Prealbumin 6.8 MG/DL (20-40)
[2019-10-18] MEDS: INSULIN REGULAR 100 UNIT/ML SUBCUT SCH ×4 (06:06→23:58)
[2019-10-18] MEDS: HYDROmorphone 2 MG/1 ML VIAL IV PRN ×5 (07:40→19:35)
[2019-10-18] MEDS: SODIUM HYPOCHLORITE 0.25% IRRIG 473 ML BOTTLE TOP SCH (08:30)
[2019-10-18] MEDS: MULTIVITAMIN LIQUID (CENTRUM) 60 ML BOTTLE PO SCH (10:39)
[2019-10-18] MEDS: carvediloL 12.5 MG TABLET PO SCH ×2 (10:40→20:30)
[2019-10-18] MEDS: ENOXAPARIN 40 MG/0.4 ML SYRINGE SUBCUT SCH (10:40)
[2019-10-18] MEDS: IRON (CARBONYL)/VIT C/B12/FA TABLET PO SCH (10:40)
[2019-10-18] MEDS: INSULIN GLARGINE 100 UNIT/ML SUBCUT SCH (10:41)
[2019-10-18] MEDS ORDERED: ACETAMINOPHEN 325 MG/10.15 ML UDCUP PO PRN (19:41)
[2019-10-18] MEDS: GABAPENTIN 300 MG CAPSULE PO SCH (20:31)
[2019-10-18] MEDS: ATORVASTATIN 40 MG TABLET PO SCH (20:31)
[2019-10-18] MEDS: metroNIDAZOLE INJ 500 MG in PREMIX 1 EACH IV SCH (20:34)
[2019-10-18 22:12] LABS: Apearance,Urine Slightly Hazy (Clear); Bacteria,Urine Occasional /HPF (Few); Bilirubin,Urine Negative (Negative); Blood, Urine Small mg/dL (Negative); Glucose,Urine (UA) Negative (Negative); Ketones,Urine Negative (Negative); Mucus,Urine Occasional /LPF (Occasional); Nitrite,Urine Negative (Negative); Protein,Urine 100 MG/DL; RBC,Urine 14 /HPF (0-4); Squamous Epithelial Cell,Urine Occasional /HPF (0-10); Urine Color Yellow (Yellow); Urine Specific Gravity 1.016 (1.001-1.035); Urine Urobilinogen < 2.0 EU/DL (0.2-1.0); WBC,Urine 6 /HPF (0-6)
[2019-10-18] MEDS: LEVOFLOXACIN INJ 750 MG in PREMIX 1 EACH IV SCH (22:40)
[2019-10-18] MEDS: IBUPROFEN 600 MG TABLET PO PRN (22:41)
[2019-10-19] MEDS: ALBUTEROL/IPRATROPIUM 3 ML NEB RESP TX SCH ×4 (01:09→19:49)
[2019-10-19] MEDS: LINEZOLID INJ 600 MG in PREMIX 1 EACH IV SCH ×2 (02:44→13:56)
[2019-10-19] MEDS: LACTATED RINGERS 1,000 ML IV SCH ×2 (02:46→10:51)
[2019-10-19 04:13] LABS: Allen Test Positive; Pt O2 Delivery Device Ventilator
[2019-10-19 04:14] LABS: ABG HCO3 28.3 MMOL/L (20-26); ABG Oxygen Saturation 96.4 % (95-100); ABG PCO2 48.1 MM HG (35-48); ABG PH 7.388 (7.35-7.45); ABG PO2 89.9 MM HG (80-95); ABG TCO2 29.8 MMOL/L (23-27)
[2019-10-19 04:36] LABS: Basophils % 0.1 % (0.0-0.8); Eosinophils # 0.2 10*3/uL (0.0-0.87); Hematocrit 21.2 VOL% (42.0-52.0); Immature Granulocytes % 4.3 %; Immature Granulocytes Absolute 0.45 #; Lymphocytes # 1.2 10*3/uL (1.4-4.0); Lymphocytes % 11.2 % (21.2-54.2); Mean Corpuscular HGB Conc 31.1 GM/DL (32-36); Mean Corpuscular Volume 79.7 FL (87-102); Mean Platelet Volume 9.3 FL (9.6-12.0); Monocytes % 8.9 % (1.7-12.7); Neutrophils % 73.5 % (38.7-73.9); Platelet Count 246 T/CUMM (130-400); Red Blood Count 2.66 MC/CUMM (3.8-5.5); Red Cell Distribution Width 15.9 % (9.3-17.3); White Blood Count 10.5 T/CUMM (4-12)
[2019-10-19 04:41] LABS: Hemoglobin 6.6 GM/DL (14.0-18.0)
[2019-10-19] MEDS: metroNIDAZOLE INJ 500 MG in PREMIX 1 EACH IV SCH ×3 (04:48→20:09)
[2019-10-19 05:16] LABS: Calcium 8.6 MG/DL (8.5-10.1); Osmolality,Calculated 286.5 MOS/KG (273-304)
[2019-10-19] MEDS: INSULIN REGULAR 100 UNIT/ML SUBCUT SCH ×4 (06:05→23:30)
[2019-10-19] MEDS: HYDROmorphone 2 MG/1 ML VIAL IV PRN ×5 (06:06→22:40)
[2019-10-19] MEDS ORDERED: DEXMEDETOMIDINE 200 MCG in SODIUM CHLORIDE 0.9% 48 ML IV PRN (08:00)
[2019-10-19] MEDS: SODIUM HYPOCHLORITE 0.25% IRRIG 473 ML BOTTLE TOP SCH (08:00)
[2019-10-19] MEDS ORDERED: SODIUM CHLORIDE 0.9% 1,000 ML IV PRN (08:39)
[2019-10-19] MEDS: carvediloL 12.5 MG TABLET PO SCH ×2 (09:34→20:10)
[2019-10-19] MEDS: INSULIN GLARGINE 100 UNIT/ML SUBCUT SCH (09:34)
[2019-10-19] MEDS ORDERED: LIDOCAINE 1%/EPI INJ 20 ML VIAL ONE (10:08)
[2019-10-19] MEDS ORDERED: BUPIVACAINE MPF 0.25% 30 ML VIAL ONE (10:08)
[2019-10-19] MEDS ORDERED: ROCURONIUM 100 MG/10 ML VIAL IV ONE (10:38)
[2019-10-19] MEDS ORDERED: SEVOFLURANE 1 UNIT/15 MINUTE INH ONE (10:38)
[2019-10-19] MEDS ORDERED: MIDAZOLAM 2 MG/2 ML VIAL ONE (10:38)
[2019-10-19] MEDS ORDERED: PHENYLEPHRINE 1 MG/10 ML SYRINGE IV ONE (10:38)
[2019-10-19] MEDS: ENOXAPARIN 40 MG/0.4 ML SYRINGE SUBCUT SCH (10:41)
[2019-10-19] MEDS: MULTIVITAMIN LIQUID (CENTRUM) 60 ML BOTTLE PO SCH (10:45)
[2019-10-19] MEDS: IRON (CARBONYL)/VIT C/B12/FA TABLET PO SCH (10:52)
[2019-10-19] MEDS: DEXMEDETOMIDINE 400 MCG in SODIUM CHLORIDE 0.9% 96 ML IV PRN ×4 (12:29→23:27)
[2019-10-19] MEDS: hydrALAZINE 20 MG/1 ML VIAL IV PRN (17:58)
[2019-10-19] MEDS: IBUPROFEN 600 MG TABLET PO PRN (18:02)
[2019-10-19] MEDS: GABAPENTIN 300 MG CAPSULE PO SCH (20:10)
[2019-10-19] MEDS: ATORVASTATIN 40 MG TABLET PO SCH (20:10)
[2019-10-19 20:55] LABS: Hematocrit 29.1 VOL% (42.0-52.0); Hemoglobin 9.3 GM/DL (14.0-18.0)
[2019-10-19] MEDS: LEVOFLOXACIN INJ 750 MG in PREMIX 1 EACH IV SCH (22:46)
[2019-10-20] MEDS: ALBUTEROL/IPRATROPIUM 3 ML NEB RESP TX SCH ×4 (00:43→19:18)
[2019-10-20] MEDS: hydrALAZINE 20 MG/1 ML VIAL IV PRN ×2 (01:40→09:05)
[2019-10-20] MEDS: LINEZOLID INJ 600 MG in PREMIX 1 EACH IV SCH ×2 (01:45→15:13)
[2019-10-20] MEDS: DEXMEDETOMIDINE 400 MCG in SODIUM CHLORIDE 0.9% 96 ML IV PRN ×5 (03:04→20:17)
[2019-10-20] MEDS: metroNIDAZOLE INJ 500 MG in PREMIX 1 EACH IV SCH ×3 (03:35→19:51)
[2019-10-20] MEDS: LACTATED RINGERS 1,000 ML IV SCH ×2 (03:45→15:14)
[2019-10-20 03:52] LABS: ABG Base Excess 3.5 MMOL/L (-2.5-2.5); ABG HCO3 27.6 MMOL/L (20-26); ABG Oxygen Saturation 97.2 % (95-100); ABG PH 7.465 (7.35-7.45); ABG PO2 86.8 MM HG (80-95); ABG TCO2 25.2 MMOL/L (23-27); Allen Test Positive; Pt O2 Delivery Device Ventilator
[2019-10-20] MEDS: INSULIN REGULAR 100 UNIT/ML SUBCUT SCH ×6 (05:45→23:54)
[2019-10-20 05:57] LABS: Basophils % 0.2 % (0.0-0.8); Eosinophils # 0.4 10*3/uL (0.0-0.87); Eosinophils % 2.8 % (0.00-10.9); Hematocrit 29.7 VOL% (42.0-52.0); Hemoglobin 9.4 GM/DL (14.0-18.0); Immature Granulocytes % 2.4 %; Immature Granulocytes Absolute 0.32 #; Lymphocytes # 0.7 10*3/uL (1.4-4.0); Lymphocytes % 5.6 % (21.2-54.2); Mean Corpuscular HGB Conc 31.6 GM/DL (32-36); Mean Corpuscular Volume 80.3 FL (87-102); Mean Platelet Volume 9.9 FL (9.6-12.0); Monocytes % 6.5 % (1.7-12.7); Neutrophils % 82.5 % (38.7-73.9); Platelet Count 278 T/CUMM (130-400); Red Cell Distribution Width 15.9 % (9.3-17.3); White Blood Count 13.3 T/CUMM (4-12)
[2019-10-20 06:17] LABS: Osmolality,Calculated 293.4 MOS/KG (273-304)
[2019-10-20] MEDS: SODIUM HYPOCHLORITE 0.25% IRRIG 473 ML BOTTLE TOP SCH (07:00)
[2019-10-20] MEDS ORDERED: FUROSEMIDE 40 MG/4 ML VIAL IV ONE (07:54)
[2019-10-20] MEDS: INSULIN GLARGINE 100 UNIT/ML SUBCUT SCH (09:30)
[2019-10-20] MEDS: MULTIVITAMIN LIQUID (CENTRUM) 60 ML BOTTLE PO SCH (09:56)
[2019-10-20] MEDS: IRON (CARBONYL)/VIT C/B12/FA TABLET PO SCH (09:56)
[2019-10-20] MEDS: ENOXAPARIN 40 MG/0.4 ML SYRINGE SUBCUT SCH (09:56)
[2019-10-20] MEDS: carvediloL 12.5 MG TABLET PO SCH ×2 (09:56→20:12)
[2019-10-20] MEDS: HYDROmorphone 2 MG/1 ML VIAL IV PRN ×4 (10:01→23:42)
[2019-10-20] MEDS: GABAPENTIN 300 MG CAPSULE PO SCH (20:12)
[2019-10-20] MEDS: ATORVASTATIN 40 MG TABLET PO SCH (20:12)
[2019-10-20] MEDS: LEVOFLOXACIN INJ 750 MG in PREMIX 1 EACH IV SCH (23:09)
[2019-10-21] MEDS: LINEZOLID INJ 600 MG in PREMIX 1 EACH IV SCH ×2 (02:30→13:55)
[2019-10-21] MEDS: DEXMEDETOMIDINE 400 MCG in SODIUM CHLORIDE 0.9% 96 ML IV PRN ×6 (02:40→22:45)
[2019-10-21] MEDS: HYDROmorphone 2 MG/1 ML VIAL IV PRN ×6 (02:50→23:47)
[2019-10-21 03:17] LABS: ABG Base Excess 6.4 MMOL/L (-2.5-2.5); ABG HCO3 30.2 MMOL/L (20-26); ABG Oxygen Saturation 95.6 % (95-100); ABG PCO2 53.6 MM HG (35-48); ABG PH 7.392 (7.35-7.45); ABG PO2 81.6 MM HG (80-95); ABG TCO2 29.8 MMOL/L (23-27); Allen Test Positive; Pt O2 Delivery Device Ventilator
[2019-10-21] MEDS: hydrALAZINE 20 MG/1 ML VIAL IV PRN ×2 (04:00→11:42)
[2019-10-21] MEDS: metroNIDAZOLE INJ 500 MG in PREMIX 1 EACH IV SCH ×3 (04:05→20:05)
[2019-10-21] MEDS: INSULIN REGULAR 100 UNIT/ML SUBCUT SCH ×5 (04:37→20:19)
[2019-10-21 04:41] LABS: Basophils % 0.2 % (0.0-0.8); Eosinophils # 0.3 10*3/uL (0.0-0.87); Hematocrit 30.7 VOL% (42.0-52.0); Hemoglobin 9.6 GM/DL (14.0-18.0); Immature Granulocytes % 1.5 %; Immature Granulocytes Absolute 0.19 #; Lymphocytes # 0.8 10*3/uL (1.4-4.0); Lymphocytes % 6.1 % (21.2-54.2); Mean Corpuscular HGB Conc 31.3 GM/DL (32-36); Mean Platelet Volume 9.6 FL (9.6-12.0); Monocytes % 7.7 % (1.7-12.7); Neutrophils % 82.5 % (38.7-73.9); Platelet Count 288 T/CUMM (130-400); Red Blood Count 3.79 MC/CUMM (3.8-5.5); Red Cell Distribution Width 16.2 % (9.3-17.3); White Blood Count 12.7 T/CUMM (4-12)
[2019-10-21 04:57] LABS: Calcium 9.1 MG/DL (8.5-10.1)
[2019-10-21] MEDS: ALBUTEROL/IPRATROPIUM 3 ML NEB RESP TX SCH ×4 (06:43→19:11)
[2019-10-21] MEDS: methylPREDNISolone SOD SUC 40 MG/1 ML VIAL IV SCH ×2 (08:46→16:33)
[2019-10-21] MEDS: carvediloL 12.5 MG TABLET PO SCH ×2 (08:46→20:15)
[2019-10-21] MEDS: MULTIVITAMIN LIQUID (CENTRUM) 60 ML BOTTLE PO SCH (08:46)
[2019-10-21] MEDS: ENOXAPARIN 40 MG/0.4 ML SYRINGE SUBCUT SCH (08:46)
[2019-10-21] MEDS: IRON (CARBONYL)/VIT C/B12/FA TABLET PO SCH (08:46)
[2019-10-21] MEDS: INSULIN GLARGINE 100 UNIT/ML SUBCUT SCH (08:56)
[2019-10-21] MEDS: SODIUM HYPOCHLORITE 0.25% IRRIG 473 ML BOTTLE TOP SCH (10:11)
[2019-10-21] MEDS: LACTATED RINGERS 1,000 ML IV SCH (12:44)
[2019-10-21] MEDS: ATORVASTATIN 40 MG TABLET PO SCH (20:20)
[2019-10-21] MEDS: GABAPENTIN 300 MG CAPSULE PO SCH (20:20)
[2019-10-22] MEDS: INSULIN REGULAR 100 UNIT/ML SUBCUT SCH ×6 (00:01→20:37)
[2019-10-22] MEDS: LEVOFLOXACIN INJ 750 MG in PREMIX 1 EACH IV SCH (00:01)
[2019-10-22] MEDS: methylPREDNISolone SOD SUC 40 MG/1 ML VIAL IV SCH ×2 (00:28→07:55)
[2019-10-22] MEDS: LINEZOLID INJ 600 MG in PREMIX 1 EACH IV SCH ×2 (01:35→14:41)
[2019-10-22] MEDS: ALBUTEROL/IPRATROPIUM 3 ML NEB RESP TX SCH ×4 (01:47→19:23)
[2019-10-22] MEDS: DEXMEDETOMIDINE 400 MCG in SODIUM CHLORIDE 0.9% 96 ML IV PRN (02:48)
[2019-10-22] MEDS: hydrALAZINE 20 MG/1 ML VIAL IV PRN ×2 (02:55→22:10)
[2019-10-22] MEDS: metroNIDAZOLE INJ 500 MG in PREMIX 1 EACH IV SCH ×3 (04:05→20:26)
[2019-10-22 04:19] LABS: Allen Test Positive; Pt O2 Delivery Device Ventilator
[2019-10-22 04:22] LABS: ABG Base Excess 6.2 MMOL/L (-2.5-2.5); ABG PH 7.421 (7.35-7.45); ABG PO2 83.5 MM HG (80-95); ABG TCO2 28.2 MMOL/L (23-27)
[2019-10-22 04:38] LABS: Basophils % 0.1 % (0.0-0.8); Eosinophils % 0.1 % (0.00-10.9); Hematocrit 34.9 VOL% (42.0-52.0); Hemoglobin 10.8 GM/DL (14.0-18.0); Immature Granulocytes % 1.1 %; Immature Granulocytes Absolute 0.17 #; Lymphocytes # 0.6 10*3/uL (1.4-4.0); Lymphocytes % 3.6 % (21.2-54.2); Mean Corpuscular HGB Conc 30.9 GM/DL (32-36); Mean Corpuscular Volume 81.4 FL (87-102); Mean Platelet Volume 9.6 FL (9.6-12.0); Monocytes % 3.9 % (1.7-12.7); Neutrophils % 91.2 % (38.7-73.9); Platelet Count 314 T/CUMM (130-400); Red Blood Count 4.29 MC/CUMM (3.8-5.5); Red Cell Distribution Width 16.2 % (9.3-17.3); White Blood Count 15.4 T/CUMM (4-12)
[2019-10-22 05:22] LABS: Band Neutrophils 1 % (0-10); Hypochromasia 1+; Lymphocytes 4 % (20-55); Segmented Neutrophils 94 % (50-85); Target Cells Slight; Total Cells Counted 100
[2019-10-22 05:23] LABS: Anisocytosis 1+; Microcytosis 1+; Platelet Estimate Normal
[2019-10-22 06:23] LABS: Calcium 9.7 MG/DL (8.5-10.1); Osmolality,Calculated 302.1 MOS/KG (273-304)
[2019-10-22] MEDS: SODIUM HYPOCHLORITE 0.25% IRRIG 473 ML BOTTLE TOP SCH ×2 (07:55→08:20)
[2019-10-22] MEDS: carvediloL 12.5 MG TABLET PO SCH ×2 (08:19→20:27)
[2019-10-22] MEDS: MULTIVITAMIN LIQUID (CENTRUM) 60 ML BOTTLE PO SCH (08:19)
[2019-10-22] MEDS: ENOXAPARIN 40 MG/0.4 ML SYRINGE SUBCUT SCH (08:20)
[2019-10-22] MEDS: IRON (CARBONYL)/VIT C/B12/FA TABLET PO SCH (08:20)
[2019-10-22] MEDS: INSULIN GLARGINE 100 UNIT/ML SUBCUT SCH (08:20)
[2019-10-22] MEDS: ONDANSETRON 4 MG/2 ML VIAL IV PRN ×2 (09:50→11:12)
[2019-10-22] MEDS: PROMETHAZINE 25 MG/1 ML VIAL IM PRN (11:12)
[2019-10-22] MEDS ORDERED: ALUM/MAG/SIMETH/LIDO VISC 1:1 30 ML BOTTLE PO ONE (12:27)
[2019-10-22] MEDS: HYDROmorphone 2 MG/1 ML VIAL IV PRN ×4 (13:03→22:15)
[2019-10-22] MEDS ORDERED: PANTOPRAZOLE 40 MG VIAL IV ONE (13:48)
[2019-10-22] MEDS: PANTOPRAZOLE 40 MG VIAL IV SCH (14:02)
[2019-10-22] MEDS ORDERED: ALUMINUM/MAGNES/SIMETH MAX STR 30 ML UDCUP PO PRN (15:15)
[2019-10-22] MEDS: ALUMINUM/MAGNES/SIMETH MAX STR 30 ML UDCUP PO PRN ×2 (15:29→22:10)
[2019-10-22] MEDS: FAMOTIDINE 20 MG/2 ML VIAL IV SCH (19:09)
[2019-10-22] MEDS: ATORVASTATIN 40 MG TABLET PO SCH (20:27)
[2019-10-22] MEDS: GABAPENTIN 300 MG CAPSULE PO SCH (20:27)
[2019-10-23] MEDS: ALBUTEROL/IPRATROPIUM 3 ML NEB RESP TX SCH ×4 (00:20→19:37)
[2019-10-23] MEDS: PROMETHAZINE 25 MG/1 ML VIAL IM PRN (01:03)
[2019-10-23] MEDS: ONDANSETRON 4 MG/2 ML VIAL IV PRN (01:03)
[2019-10-23] MEDS: INSULIN REGULAR 100 UNIT/ML SUBCUT SCH ×6 (01:10→21:46)
[2019-10-23] MEDS: HYDROmorphone 2 MG/1 ML VIAL IV PRN ×2 (02:04→07:55)
[2019-10-23] MEDS: LINEZOLID INJ 600 MG in PREMIX 1 EACH IV SCH ×2 (02:05→13:22)
[2019-10-23 03:51] LABS: Basophils % 0.2 % (0.0-0.8); Eosinophils # 0.1 10*3/uL (0.0-0.87); Eosinophils % 0.6 % (0.00-10.9); Hematocrit 31.6 VOL% (42.0-52.0); Hemoglobin 9.7 GM/DL (14.0-18.0); Immature Granulocytes % 0.7 %; Immature Granulocytes Absolute 0.11 #; Lymphocytes # 0.9 10*3/uL (1.4-4.0); Lymphocytes % 5.5 % (21.2-54.2); Mean Corpuscular HGB Conc 30.7 GM/DL (32-36); Mean Corpuscular Volume 81.7 FL (87-102); Mean Platelet Volume 9.2 FL (9.6-12.0); Monocytes % 7.3 % (1.7-12.7); Neutrophils % 85.7 % (38.7-73.9); Platelet Count 324 T/CUMM (130-400); Red Blood Count 3.87 MC/CUMM (3.8-5.5); Red Cell Distribution Width 16.4 % (9.3-17.3); White Blood Count 16.6 T/CUMM (4-12)
[2019-10-23 04:14] LABS: Calcium 9.1 MG/DL (8.5-10.1); Osmolality,Calculated 293.7 MOS/KG (273-304)
[2019-10-23] MEDS: metroNIDAZOLE INJ 500 MG in PREMIX 1 EACH IV SCH ×3 (04:30→21:46)
[2019-10-23 04:39] LABS: ABG Base Excess 8.9 MMOL/L (-2.5-2.5); ABG HCO3 35.6 MMOL/L (20-26); ABG Oxygen Saturation 96.3 % (95-100); ABG PCO2 60.5 MM HG (35-48); ABG PH 7.387 (7.35-7.45); ABG PO2 89.3 MM HG (80-95); ABG TCO2 37.4 MMOL/L (23-27); Allen Test Positive
[2019-10-23] MEDS: LACTATED RINGERS 1,000 ML IV SCH ×2 (06:11)
[2019-10-23] MEDS: FAMOTIDINE 20 MG/2 ML VIAL IV SCH ×2 (06:41→18:33)
[2019-10-23] MEDS: MULTIVITAMIN LIQUID (CENTRUM) 60 ML BOTTLE PO SCH (07:59)
[2019-10-23] MEDS: ENOXAPARIN 40 MG/0.4 ML SYRINGE SUBCUT SCH (08:00)
[2019-10-23] MEDS: carvediloL 12.5 MG TABLET PO SCH ×2 (08:00→21:46)
[2019-10-23] MEDS: IRON (CARBONYL)/VIT C/B12/FA TABLET PO SCH (08:00)
[2019-10-23] MEDS: INSULIN GLARGINE 100 UNIT/ML SUBCUT SCH (08:01)
[2019-10-23] MEDS: PANTOPRAZOLE 40 MG VIAL IV SCH (08:01)
[2019-10-23] MEDS: SODIUM HYPOCHLORITE 0.25% IRRIG 473 ML BOTTLE TOP SCH (08:48)
[2019-10-23] MEDS: ALUMINUM/MAGNES/SIMETH MAX STR 30 ML UDCUP PO PRN (11:29)
[2019-10-23] MEDS: IBUPROFEN 600 MG TABLET PO PRN (19:22)
[2019-10-23] MEDS: GABAPENTIN 300 MG CAPSULE PO SCH (21:46)
[2019-10-23] MEDS: ATORVASTATIN 40 MG TABLET PO SCH (21:46)
[2019-10-24] MEDS: LINEZOLID INJ 600 MG in PREMIX 1 EACH IV SCH (00:15)
[2019-10-24] MEDS: ALBUTEROL/IPRATROPIUM 3 ML NEB RESP TX SCH ×4 (00:49→20:14)
[2019-10-24] MEDS: metroNIDAZOLE INJ 500 MG in PREMIX 1 EACH IV SCH (04:16)
[2019-10-24] MEDS: INSULIN REGULAR 100 UNIT/ML SUBCUT SCH ×5 (04:26→20:28)
[2019-10-24 05:09] LABS: Basophils % 0.3 % (0.0-0.8); Eosinophils # 0.2 10*3/uL (0.0-0.87); Eosinophils % 2.2 % (0.00-10.9); Hematocrit 30.7 VOL% (42.0-52.0); Hemoglobin 9.8 GM/DL (14.0-18.0); Immature Granulocytes % 0.6 %; Immature Granulocytes Absolute 0.06 #; Lymphocytes # 1.2 10*3/uL (1.4-4.0); Lymphocytes % 11.1 % (21.2-54.2); Mean Corpuscular HGB Conc 31.9 GM/DL (32-36); Mean Corpuscular Volume 78.9 FL (87-102); Mean Platelet Volume 9.4 FL (9.6-12.0); Monocytes % 8.2 % (1.7-12.7); Neutrophils % 77.6 % (38.7-73.9); Platelet Count 325 T/CUMM (130-400); Red Blood Count 3.89 MC/CUMM (3.8-5.5); Red Cell Distribution Width 15.8 % (9.3-17.3); White Blood Count 10.3 T/CUMM (4-12)
[2019-10-24 05:18] LABS: Calcium 8.6 MG/DL (8.5-10.1); Osmolality,Calculated 279.5 MOS/KG (273-304)
[2019-10-24] MEDS: INSULIN GLARGINE 100 UNIT/ML SUBCUT SCH (08:52)
[2019-10-24] MEDS: ENOXAPARIN 40 MG/0.4 ML SYRINGE SUBCUT SCH (08:53)
[2019-10-24] MEDS: IRON (CARBONYL)/VIT C/B12/FA TABLET PO SCH (08:54)
[2019-10-24] MEDS: carvediloL 12.5 MG TABLET PO SCH ×2 (08:54→20:27)
[2019-10-24] MEDS: POTASSIUM CHLORIDE 20 MEQ TABLET PO PRN ×4 (08:57→16:30)
[2019-10-24] MEDS: SODIUM HYPOCHLORITE 0.25% IRRIG 473 ML BOTTLE TOP SCH (09:45)
[2019-10-24] MEDS: MULTIVITAMIN LIQUID (CENTRUM) 60 ML BOTTLE PO SCH (10:13)
[2019-10-24] MEDS: AMPICILLIN INJ 2,000 MG in SODIUM CHLORIDE 0.9% 100 ML IV SCH ×3 (10:14→22:51)
[2019-10-24] MEDS: lisinopriL 5 MG TABLET PO SCH (14:46)
[2019-10-24] MEDS: ATORVASTATIN 40 MG TABLET PO SCH (20:27)
[2019-10-24] MEDS: GABAPENTIN 300 MG CAPSULE PO SCH (20:27)
[2019-10-25] MEDS: INSULIN REGULAR 100 UNIT/ML SUBCUT SCH ×3 (00:16→09:34)
[2019-10-25] MEDS: POTASSIUM CHLORIDE 20 MEQ TABLET PO PRN ×3 (02:05→09:33)
[2019-10-25] MEDS: ALBUTEROL/IPRATROPIUM 3 ML NEB RESP TX SCH ×2 (03:39→07:14)
[2019-10-25] MEDS: AMPICILLIN INJ 2,000 MG in SODIUM CHLORIDE 0.9% 100 ML IV SCH (04:21)
[2019-10-25 05:34] LABS: Basophils % 0.3 % (0.0-0.8); Eosinophils # 0.3 10*3/uL (0.0-0.87); Eosinophils % 2.7 % (0.00-10.9); Hematocrit 30.4 VOL% (42.0-52.0); Hemoglobin 9.5 GM/DL (14.0-18.0); Immature Granulocytes % 0.8 %; Immature Granulocytes Absolute 0.08 #; Lymphocytes # 0.9 10*3/uL (1.4-4.0); Mean Corpuscular HGB Conc 31.3 GM/DL (32-36); Mean Corpuscular Volume 81.3 FL (87-102); Mean Platelet Volume 9.3 FL (9.6-12.0); Monocytes % 7.4 % (1.7-12.7); Neutrophils % 79.8 % (38.7-73.9); Platelet Count 361 T/CUMM (130-400); Red Blood Count 3.74 MC/CUMM (3.8-5.5); Red Cell Distribution Width 15.8 % (9.3-17.3); White Blood Count 10.4 T/CUMM (4-12)
[2019-10-25 05:50] LABS: Calcium 8.7 MG/DL (8.5-10.1); Osmolality,Calculated 278.7 MOS/KG (273-304)
[2019-10-25] MEDS: FAMOTIDINE 20 MG/2 ML VIAL IV SCH (08:29)
[2019-10-25] MEDS ORDERED: AMOXICILLIN/CLAV 875 MG TABLET PO SCH (08:45)
[2019-10-25] MEDS: INSULIN GLARGINE 100 UNIT/ML SUBCUT SCH (09:33)
[2019-10-25] MEDS: carvediloL 12.5 MG TABLET PO SCH (09:33)
[2019-10-25] MEDS: lisinopriL 5 MG TABLET PO SCH (09:33)
[2019-10-25] MEDS: IRON (CARBONYL)/VIT C/B12/FA TABLET PO SCH (09:33)
[2019-10-25] MEDS: SODIUM HYPOCHLORITE 0.25% IRRIG 473 ML BOTTLE TOP SCH (09:34)
[2019-10-25] MEDS: ENOXAPARIN 40 MG/0.4 ML SYRINGE SUBCUT SCH (09:34)
[2019-10-25] MEDS: MULTIVITAMIN LIQUID (CENTRUM) 60 ML BOTTLE PO SCH (09:37)
[2019-10-25 09:40] VITALS: BP 144/100
== END 2019-10-25 12:15 | disposition home or self-care (01) | DRG 264 ==
LOC: N.ED 12:58 → N.ICU 18:12 → SUATTDRO 19:07 → N.EDINP 19:07 → N.ICU 22:06 → N.3E 10-23 16:16
PROVIDERS: ADMIT Surgery; ATTEND Internal Medicine

== ENCOUNTER 2020-01-05 21:45 | Inpatient (IN) ==
[2020-01-06] MEDS ORDERED: GLUCAGON 1 MG VIAL IM PRN (00:47)
[2020-01-06] MEDS ORDERED: ACETAMINOPHEN 325 MG TABLET PO PRN (00:47)
[2020-01-06] MEDS ORDERED: DEXTROSE 50% 25 GM/50 ML VIAL IV PRN (00:47)
[2020-01-06] MEDS: LACTATED RINGERS 1,000 ML IV SCH ×2 (03:40→18:03)
[2020-01-06 05:12] LABS: Basophils % 0.4 % (0.0-0.8); Eosinophils # 0.3 10*3/uL (0.0-0.87); Eosinophils % 7.2 % (0.00-10.9); Hematocrit 32.3 VOL% (42.0-52.0); Hemoglobin 9.9 GM/DL (14.0-18.0); Immature Granulocytes % 0.2 %; Immature Granulocytes Absolute 0.01 #; Lymphocytes # 1.2 10*3/uL (1.4-4.0); Mean Corpuscular HGB Conc 30.7 GM/DL (32-36); Mean Corpuscular Volume 79.4 FL (87-102); Mean Platelet Volume 10.6 FL (9.6-12.0); Monocytes % 10.6 % (1.7-12.7); Neutrophils % 56.6 % (38.7-73.9); Platelet Count 301 T/CUMM (130-400); Red Blood Count 4.07 MC/CUMM (3.8-5.5); Red Cell Distribution Width 18.2 % (9.3-17.3); White Blood Count 4.7 T/CUMM (4-12)
[2020-01-06 05:39] LABS: Calcium 9.9 MG/DL (8.5-10.1); Osmolality,Calculated 288.4 MOS/KG (273-304)
[2020-01-06] MEDS: PANTOPRAZOLE 40 MG TABLET PO SCH (08:43)
[2020-01-06] MEDS: ATORVASTATIN 40 MG TABLET PO SCH (08:44)
[2020-01-06] MEDS: carvediloL 12.5 MG TABLET PO SCH ×2 (08:44→16:48)
[2020-01-06] MEDS ORDERED: INSULIN NPH/REGULAR 70/30 100 UNIT/ML SUBCUT SCH (09:00)
[2020-01-06] MEDS: INSULIN NPH/REGULAR 70/30 100 UNIT/ML SUBCUT SCH (16:48)
[2020-01-06] MEDS: MORPHINE 4 MG/1 ML VIAL IV PRN ×2 (18:04→20:55)
[2020-01-06] MEDS: GABAPENTIN 300 MG CAPSULE PO SCH (20:54)
[2020-01-07] MEDS: MORPHINE 4 MG/1 ML VIAL IV PRN ×3 (00:49→10:32)
[2020-01-07] MEDS: LABETALOL 20 MG/4 ML SYRINGE IV PRN ×2 (03:12→09:56)
[2020-01-07] MEDS: LACTATED RINGERS 1,000 ML IV SCH ×2 (06:36→17:11)
[2020-01-07] MEDS ORDERED: INSULIN NPH/REGULAR 70/30 100 UNIT/ML SUBCUT SCH (07:30)
[2020-01-07 08:10] LABS: Basophils % 0.4 % (0.0-0.8); Eosinophils # 0.3 10*3/uL (0.0-0.87); Hematocrit 32.9 VOL% (42.0-52.0); Hemoglobin 10.3 GM/DL (14.0-18.0); Immature Granulocytes % 0.4 %; Immature Granulocytes Absolute 0.02 #; Lymphocytes # 0.9 10*3/uL (1.4-4.0); Lymphocytes % 17.2 % (21.2-54.2); Mean Corpuscular HGB Conc 31.3 GM/DL (32-36); Mean Corpuscular Volume 78.7 FL (87-102); Mean Platelet Volume 10.2 FL (9.6-12.0); Monocytes % 10.8 % (1.7-12.7); Neutrophils % 65.2 % (38.7-73.9); Platelet Count 257 T/CUMM (130-400); Red Blood Count 4.18 MC/CUMM (3.8-5.5); Red Cell Distribution Width 17.6 % (9.3-17.3); White Blood Count 5.2 T/CUMM (4-12)
[2020-01-07 08:29] LABS: Calcium 9.3 MG/DL (8.5-10.1); Osmolality,Calculated 280.8 MOS/KG (273-304)
[2020-01-07] MEDS ORDERED: propofoL 200 MG/20 ML VIAL IV ONE (09:33)
[2020-01-07] MEDS ORDERED: ONDANSETRON 4 MG/2 ML VIAL ONE ×2 (09:33→09:34)
[2020-01-07] MEDS ORDERED: HYDROmorphone 2 MG/1 ML VIAL ONE (09:33)
[2020-01-07] MEDS ORDERED: SUCCINYLCHOLINE 200 MG/10 ML VIAL ONE (09:34)
[2020-01-07] MEDS ORDERED: SEVOFLURANE 1 UNIT/15 MINUTE INH ONE (09:34)
[2020-01-07] MEDS ORDERED: MIDAZOLAM 2 MG/2 ML VIAL ONE (09:34)
[2020-01-07] MEDS ORDERED: PHENYLEPHRINE 1 MG/10 ML SYRINGE IV ONE (09:34)
[2020-01-07] MEDS ORDERED: LIDOCAINE 2% 5 ML VIAL ONE (09:34)
[2020-01-07] MEDS ORDERED: fentaNYL 100 MCG/2 ML VIAL ONE (09:34)
[2020-01-07] MEDS: HYDROmorphone 2 MG/1 ML VIAL IV PRN ×6 (09:34→21:26)
[2020-01-07] MEDS ORDERED: ONDANSETRON 4 MG/2 ML VIAL IV PRN (09:38)
[2020-01-07] MEDS ORDERED: DEXTROSE 50% 25 GM/50 ML VIAL IV PRN (09:49)
[2020-01-07] MEDS ORDERED: LABETALOL 100 MG/20 ML VIAL IV ONE (09:52)
[2020-01-07] MEDS: PANTOPRAZOLE 40 MG TABLET PO SCH (10:32)
[2020-01-07] MEDS: carvediloL 12.5 MG TABLET PO SCH ×2 (10:32→17:09)
[2020-01-07] MEDS: ATORVASTATIN 40 MG TABLET PO SCH (10:32)
[2020-01-07] MEDS: INSULIN LISPRO 100 UNIT/ML SUBCUT SCH ×2 (12:16→17:08)
[2020-01-07] MEDS: INSULIN NPH/REGULAR 70/30 100 UNIT/ML SUBCUT SCH (17:08)
[2020-01-07] MEDS: GABAPENTIN 300 MG CAPSULE PO SCH (21:36)
[2020-01-07] MEDS: LISINOPRIL/HCTZ 10-12.5 MG TABLET PO SCH (21:36)
[2020-01-08] MEDS: HYDROmorphone 2 MG/1 ML VIAL IV PRN ×7 (01:14→21:45)
[2020-01-08 05:47] LABS: Basophils % 0.2 % (0.0-0.8); Eosinophils # 0.3 10*3/uL (0.0-0.87); Hematocrit 30.4 VOL% (42.0-52.0); Hemoglobin 9.5 GM/DL (14.0-18.0); Immature Granulocytes % 0.2 %; Immature Granulocytes Absolute 0.01 #; Lymphocytes # 0.9 10*3/uL (1.4-4.0); Mean Corpuscular HGB Conc 31.3 GM/DL (32-36); Mean Corpuscular Volume 79.2 FL (87-102); Mean Platelet Volume 10.6 FL (9.6-12.0); Monocytes % 13.4 % (1.7-12.7); Neutrophils % 65.2 % (38.7-73.9); Platelet Count 233 T/CUMM (130-400); Red Blood Count 3.84 MC/CUMM (3.8-5.5); Red Cell Distribution Width 17.4 % (9.3-17.3); White Blood Count 5.4 T/CUMM (4-12)
[2020-01-08 06:19] LABS: Calcium 9.3 MG/DL (8.5-10.1); Osmolality,Calculated 272.2 MOS/KG (273-304)
[2020-01-08] MEDS: LACTATED RINGERS 1,000 ML IV SCH (06:47)
[2020-01-08] MEDS: INSULIN LISPRO 100 UNIT/ML SUBCUT SCH ×3 (09:11→17:30)
[2020-01-08] MEDS: LISINOPRIL/HCTZ 10-12.5 MG TABLET PO SCH ×2 (09:12→20:39)
[2020-01-08] MEDS: INSULIN NPH/REGULAR 70/30 100 UNIT/ML SUBCUT SCH ×2 (09:12→16:54)
[2020-01-08] MEDS: ATORVASTATIN 40 MG TABLET PO SCH (09:12)
[2020-01-08] MEDS: carvediloL 12.5 MG TABLET PO SCH ×2 (09:12→16:53)
[2020-01-08] MEDS: PANTOPRAZOLE 40 MG TABLET PO SCH (09:12)
[2020-01-08] MEDS: FERROUS SULFATE 325 MG TABLET PO SCH ×2 (11:47→16:53)
[2020-01-08] MEDS: GABAPENTIN 300 MG CAPSULE PO SCH (20:39)
[2020-01-09] MEDS: HYDROmorphone 2 MG/1 ML VIAL IV PRN ×8 (00:56→23:06)
[2020-01-09 06:17] LABS: Basophils % 0.2 % (0.0-0.8); Eosinophils # 0.3 10*3/uL (0.0-0.87); Eosinophils % 5.5 % (0.00-10.9); Hematocrit 29.8 VOL% (42.0-52.0); Hemoglobin 9.4 GM/DL (14.0-18.0); Immature Granulocytes % 0.2 %; Immature Granulocytes Absolute 0.01 #; Lymphocytes # 0.8 10*3/uL (1.4-4.0); Lymphocytes % 15.1 % (21.2-54.2); Mean Corpuscular HGB Conc 31.5 GM/DL (32-36); Mean Corpuscular Volume 78.2 FL (87-102); Mean Platelet Volume 10.7 FL (9.6-12.0); Monocytes % 10.4 % (1.7-12.7); Neutrophils % 68.6 % (38.7-73.9); Platelet Count 253 T/CUMM (130-400); Red Blood Count 3.81 MC/CUMM (3.8-5.5); Red Cell Distribution Width 17.1 % (9.3-17.3); White Blood Count 5.1 T/CUMM (4-12)
[2020-01-09] MEDS ORDERED: oxyCODONE/ACETAMINOPHEN 5-325 MG TABLET PO PRN (06:56)
[2020-01-09 06:58] LABS: Calcium 9.3 MG/DL (8.5-10.1); Osmolality,Calculated 282.7 MOS/KG (273-304)
[2020-01-09] MEDS: carvediloL 12.5 MG TABLET PO SCH ×2 (08:35→16:35)
[2020-01-09] MEDS: ATORVASTATIN 40 MG TABLET PO SCH (08:36)
[2020-01-09] MEDS: FERROUS SULFATE 325 MG TABLET PO SCH ×3 (08:36→16:35)
[2020-01-09] MEDS: LISINOPRIL/HCTZ 10-12.5 MG TABLET PO SCH ×2 (08:38→20:25)
[2020-01-09] MEDS: PANTOPRAZOLE 40 MG TABLET PO SCH (08:39)
[2020-01-09] MEDS: INSULIN LISPRO 100 UNIT/ML SUBCUT SCH ×3 (08:41→16:34)
[2020-01-09] MEDS: ONDANSETRON 4 MG/2 ML VIAL IV PRN ×2 (08:55→16:35)
[2020-01-09] MEDS: INSULIN NPH/REGULAR 70/30 100 UNIT/ML SUBCUT SCH ×2 (08:59→16:34)
[2020-01-09] MEDS ORDERED: GABAPENTIN 300 MG CAPSULE PO SCH (09:00)
[2020-01-09] MEDS: AMPICILLIN/SULBACTAM 1,500 MG in SODIUM CHLORIDE 0.9% 100 ML IV SCH ×3 (10:13→23:17)
[2020-01-09] MEDS ORDERED: SKIN HEALING OINT (AQUAPHOR) 50 GM TUBE TOP PRN (11:23)
[2020-01-09] MEDS: GABAPENTIN 300 MG CAPSULE PO SCH ×2 (13:24→21:04)
[2020-01-10] MEDS: HYDROmorphone 2 MG/1 ML VIAL IV PRN ×8 (02:02→23:38)
[2020-01-10] MEDS: GABAPENTIN 300 MG CAPSULE PO SCH ×3 (05:09→21:47)
[2020-01-10] MEDS: AMPICILLIN/SULBACTAM 1,500 MG in SODIUM CHLORIDE 0.9% 100 ML IV SCH ×4 (05:09→20:27)
[2020-01-10] MEDS: LISINOPRIL/HCTZ 10-12.5 MG TABLET PO SCH ×2 (08:21→20:27)
[2020-01-10] MEDS: INSULIN LISPRO 100 UNIT/ML SUBCUT SCH ×3 (08:21→17:24)
[2020-01-10] MEDS: FERROUS SULFATE 325 MG TABLET PO SCH ×4 (08:21→17:16)
[2020-01-10] MEDS: carvediloL 12.5 MG TABLET PO SCH ×3 (08:21→17:16)
[2020-01-10] MEDS: PANTOPRAZOLE 40 MG TABLET PO SCH (08:21)
[2020-01-10] MEDS: ATORVASTATIN 40 MG TABLET PO SCH (08:21)
[2020-01-10] MEDS: INSULIN NPH/REGULAR 70/30 100 UNIT/ML SUBCUT SCH ×2 (08:22→17:23)
[2020-01-10] MEDS: ONDANSETRON 4 MG/2 ML VIAL IV PRN (11:32)
[2020-01-11] MEDS: AMPICILLIN/SULBACTAM 1,500 MG in SODIUM CHLORIDE 0.9% 100 ML IV SCH ×4 (02:23→20:31)
[2020-01-11] MEDS: HYDROmorphone 2 MG/1 ML VIAL IV PRN ×7 (02:23→22:54)
[2020-01-11] MEDS: GABAPENTIN 300 MG CAPSULE PO SCH ×3 (05:22→21:00)
[2020-01-11] MEDS: INSULIN LISPRO 100 UNIT/ML SUBCUT SCH ×3 (09:08→17:06)
[2020-01-11] MEDS: INSULIN NPH/REGULAR 70/30 100 UNIT/ML SUBCUT SCH ×2 (09:09→17:05)
[2020-01-11] MEDS: LISINOPRIL/HCTZ 10-12.5 MG TABLET PO SCH ×2 (09:10→20:30)
[2020-01-11] MEDS: FERROUS SULFATE 325 MG TABLET PO SCH ×3 (09:11→17:04)
[2020-01-11] MEDS: carvediloL 12.5 MG TABLET PO SCH ×2 (09:11→17:04)
[2020-01-11] MEDS: ATORVASTATIN 40 MG TABLET PO SCH (09:11)
[2020-01-11] MEDS: PANTOPRAZOLE 40 MG TABLET PO SCH (09:11)
[2020-01-12] MEDS: HYDROmorphone 2 MG/1 ML VIAL IV PRN ×7 (02:01→22:47)
[2020-01-12] MEDS: AMPICILLIN/SULBACTAM 1,500 MG in SODIUM CHLORIDE 0.9% 100 ML IV SCH ×4 (03:50→21:23)
[2020-01-12] MEDS: GABAPENTIN 300 MG CAPSULE PO SCH ×3 (05:31→22:34)
[2020-01-12] MEDS: INSULIN NPH/REGULAR 70/30 100 UNIT/ML SUBCUT SCH ×2 (08:59→17:19)
[2020-01-12] MEDS: carvediloL 12.5 MG TABLET PO SCH ×2 (08:59→17:16)
[2020-01-12] MEDS: INSULIN LISPRO 100 UNIT/ML SUBCUT SCH ×3 (08:59→17:16)
[2020-01-12] MEDS: FERROUS SULFATE 325 MG TABLET PO SCH ×3 (08:59→17:16)
[2020-01-12] MEDS: PANTOPRAZOLE 40 MG TABLET PO SCH (09:13)
[2020-01-12] MEDS: LISINOPRIL/HCTZ 10-12.5 MG TABLET PO SCH ×2 (09:13→20:30)
[2020-01-12] MEDS: ATORVASTATIN 40 MG TABLET PO SCH (09:13)
[2020-01-13] MEDS: HYDROmorphone 2 MG/1 ML VIAL IV PRN ×5 (02:07→23:45)
[2020-01-13] MEDS: AMPICILLIN/SULBACTAM 1,500 MG in SODIUM CHLORIDE 0.9% 100 ML IV SCH ×4 (03:56→22:00)
[2020-01-13] MEDS: GABAPENTIN 300 MG CAPSULE PO SCH ×4 (05:05→21:30)
[2020-01-13] MEDS ORDERED: GABAPENTIN 600 MG TABLET ONE (08:28)
[2020-01-13] MEDS: oxyCODONE/ACETAMINOPHEN 5-325 MG TABLET PO SCH ×3 (08:29→21:30)
[2020-01-13] MEDS: INSULIN NPH/REGULAR 70/30 100 UNIT/ML SUBCUT SCH ×2 (08:31→15:39)
[2020-01-13] MEDS: INSULIN LISPRO 100 UNIT/ML SUBCUT SCH ×3 (08:31→15:39)
[2020-01-13] MEDS: FERROUS SULFATE 325 MG TABLET PO SCH ×3 (10:19→17:52)
[2020-01-13] MEDS: ATORVASTATIN 40 MG TABLET PO SCH (10:19)
[2020-01-13] MEDS: LISINOPRIL/HCTZ 10-12.5 MG TABLET PO SCH ×2 (10:19→21:28)
[2020-01-13] MEDS: PANTOPRAZOLE 40 MG TABLET PO SCH (10:20)
[2020-01-13] MEDS: carvediloL 12.5 MG TABLET PO SCH ×2 (10:20→17:52)
[2020-01-13] MEDS: PREGABALIN 50 MG CAPSULE PO SCH ×2 (10:20→21:29)
[2020-01-13] MEDS: ESCITALOPRAM 10 MG TABLET PO SCH (21:29)
[2020-01-14] MEDS: AMPICILLIN/SULBACTAM 1,500 MG in SODIUM CHLORIDE 0.9% 100 ML IV SCH ×4 (02:36→22:33)
[2020-01-14] MEDS: GABAPENTIN 300 MG CAPSULE PO SCH ×5 (06:24→22:31)
[2020-01-14] MEDS: oxyCODONE/ACETAMINOPHEN 5-325 MG TABLET PO SCH ×5 (06:24→22:32)
[2020-01-14] MEDS: HYDROmorphone 2 MG/1 ML VIAL IV PRN ×4 (06:32→20:13)
[2020-01-14 07:22] LABS: Basophils % 0.3 % (0.0-0.8); Eosinophils # 0.3 10*3/uL (0.0-0.87); Eosinophils % 6.8 % (0.00-10.9); Hematocrit 31.7 VOL% (42.0-52.0); Hemoglobin 10.2 GM/DL (14.0-18.0); Immature Granulocytes % 0.5 %; Immature Granulocytes Absolute 0.02 #; Lymphocytes % 25.3 % (21.2-54.2); Mean Corpuscular HGB Conc 32.2 GM/DL (32-36); Mean Corpuscular Volume 75.8 FL (87-102); Mean Platelet Volume 10.1 FL (9.6-12.0); Monocytes % 12.3 % (1.7-12.7); Neutrophils % 54.8 % (38.7-73.9); Platelet Count 303 T/CUMM (130-400); Red Blood Count 4.18 MC/CUMM (3.8-5.5); Red Cell Distribution Width 16.6 % (9.3-17.3); White Blood Count 3.8 T/CUMM (4-12)
[2020-01-14 07:41] LABS: Albumin 3.1 G/DL (3.4-5.0); Bilirubin,Total 0.4 MG/DL (0.2-1.0); Calcium 9.5 MG/DL (8.5-10.1); Osmolality,Calculated 282.8 MOS/KG (273-304); Total Protein 8.3 G/DL (6.4-8.3)
[2020-01-14] MEDS: carvediloL 12.5 MG TABLET PO SCH ×2 (09:07→16:38)
[2020-01-14] MEDS: INSULIN NPH/REGULAR 70/30 100 UNIT/ML SUBCUT SCH ×2 (09:07→16:38)
[2020-01-14] MEDS: LISINOPRIL/HCTZ 10-12.5 MG TABLET PO SCH ×2 (09:07→22:33)
[2020-01-14] MEDS: ATORVASTATIN 40 MG TABLET PO SCH (09:07)
[2020-01-14] MEDS: PREGABALIN 50 MG CAPSULE PO SCH ×2 (09:07→22:32)
[2020-01-14] MEDS: FERROUS SULFATE 325 MG TABLET PO SCH ×3 (09:07→16:38)
[2020-01-14] MEDS: PANTOPRAZOLE 40 MG TABLET PO SCH (09:08)
[2020-01-14] MEDS: INSULIN LISPRO 100 UNIT/ML SUBCUT SCH ×3 (09:08→16:38)
[2020-01-14] MEDS: ESCITALOPRAM 10 MG TABLET PO SCH (22:32)
[2020-01-15] MEDS: HYDROmorphone 2 MG/1 ML VIAL IV PRN (02:20)
[2020-01-15] MEDS: AMPICILLIN/SULBACTAM 1,500 MG in SODIUM CHLORIDE 0.9% 100 ML IV SCH (02:21)
[2020-01-15] MEDS: LABETALOL 20 MG/4 ML SYRINGE IV PRN (02:30)
[2020-01-15] MEDS: GABAPENTIN 300 MG CAPSULE PO SCH ×3 (05:54→21:56)
[2020-01-15] MEDS: oxyCODONE/ACETAMINOPHEN 5-325 MG TABLET PO SCH ×3 (05:55→21:56)
[2020-01-15] MEDS: carvediloL 12.5 MG TABLET PO SCH ×2 (08:19→16:42)
[2020-01-15] MEDS: PANTOPRAZOLE 40 MG TABLET PO SCH (08:19)
[2020-01-15] MEDS: FERROUS SULFATE 325 MG TABLET PO SCH ×3 (08:19→16:42)
[2020-01-15] MEDS: LISINOPRIL/HCTZ 10-12.5 MG TABLET PO SCH ×2 (08:19→21:56)
[2020-01-15] MEDS: ATORVASTATIN 40 MG TABLET PO SCH (08:19)
[2020-01-15] MEDS: INSULIN NPH/REGULAR 70/30 100 UNIT/ML SUBCUT SCH ×2 (08:20→16:44)
[2020-01-15] MEDS: INSULIN LISPRO 100 UNIT/ML SUBCUT SCH ×3 (08:20→16:43)
[2020-01-15] MEDS: PREGABALIN 50 MG CAPSULE PO SCH ×2 (08:59→22:33)
[2020-01-15] MEDS: CLINDAMYCIN 300 MG CAPSULE PO SCH ×2 (13:20→21:56)
[2020-01-15] MEDS ORDERED: KETOROLAC 30 MG/1 ML VIAL IV ONE (19:38)
[2020-01-15] MEDS: ESCITALOPRAM 10 MG TABLET PO SCH (21:56)
[2020-01-16] MEDS: GABAPENTIN 300 MG CAPSULE PO SCH (05:06)
[2020-01-16] MEDS: oxyCODONE/ACETAMINOPHEN 5-325 MG TABLET PO SCH (05:06)
[2020-01-16] MEDS: CLINDAMYCIN 300 MG CAPSULE PO SCH (05:06)
[2020-01-16] MEDS ORDERED: KETOROLAC 15 MG/1 ML VIAL IV PRN (06:55)
[2020-01-16] MEDS: ATORVASTATIN 40 MG TABLET PO SCH (08:34)
[2020-01-16] MEDS: LISINOPRIL/HCTZ 10-12.5 MG TABLET PO SCH (08:34)
[2020-01-16] MEDS: FERROUS SULFATE 325 MG TABLET PO SCH ×2 (08:35→11:59)
[2020-01-16] MEDS: PANTOPRAZOLE 40 MG TABLET PO SCH (08:35)
[2020-01-16] MEDS: PREGABALIN 50 MG CAPSULE PO SCH (08:35)
[2020-01-16] MEDS: carvediloL 12.5 MG TABLET PO SCH (08:35)
[2020-01-16] MEDS: INSULIN NPH/REGULAR 70/30 100 UNIT/ML SUBCUT SCH (08:35)
[2020-01-16] MEDS: INSULIN LISPRO 100 UNIT/ML SUBCUT SCH ×2 (08:36→12:02)
[2020-01-16 11:27] VITALS: BP 170/97
== END 2020-01-16 12:20 | disposition home or self-care (01) | DRG 317 ==
LOC: N.ED 21:45 → N.EDINP 01-06 00:47 → N.3E 01-06 01:48
PROVIDERS: ADMIT Surgery; ATTEND Surgery

== ENCOUNTER 2020-04-17 00:43 | Inpatient (IN) ==
[2020-04-17] MEDS ORDERED: PIPERACILLIN/TAZOBACTAM 3,375 MG in SODIUM CHLORIDE 0.9% 100 ML IV STA (02:17)
[2020-04-17] MEDS ORDERED: HYDROmorphone 2 MG/1 ML VIAL IV ONE (02:22)
[2020-04-17 03:53] LABS: Basophils % 0.4 % (0.0-0.8); Eosinophils # 0.1 10*3/uL (0.0-0.87); Eosinophils % 2.6 % (0.00-10.9); Hematocrit 36.7 VOL% (42.0-52.0); Hemoglobin 12.1 GM/DL (14.0-18.0); Immature Granulocytes % 0.4 %; Immature Granulocytes Absolute 0.02 #; Lymphocytes # 1.1 10*3/uL (1.4-4.0); Lymphocytes % 20.5 % (21.2-54.2); Mean Corpuscular Volume 73.8 FL (87-102); Mean Platelet Volume 10.1 FL (9.6-12.0); Monocytes % 11.4 % (1.7-12.7); Neutrophils % 64.7 % (38.7-73.9); Platelet Count 292 T/CUMM (130-400); Red Blood Count 4.97 MC/CUMM (3.8-5.5); Red Cell Distribution Width 15.4 % (9.3-17.3); White Blood Count 5.4 T/CUMM (4-12)
[2020-04-17 04:14] LABS: Alanine Aminotransferase 35 U/L (16-61); Albumin 3.1 G/DL (3.4-5.0); Alkaline Phosphatase 140 U/L (45-117); Aspartate Amino Transferase 20 U/L (0-37); Bilirubin,Total < 0.39 MG/DL (0.2-1.0); Blood Urea Nitrogen 33 MG/DL (7-18); Calcium 9.1 MG/DL (8.5-10.1); Carbon Dioxide 24 MMOL/L (21-32); Estimated Glom Filtration Rate 55 ML/MIN; Glucose 442 MG/DL (74-106); Osmolality,Calculated 287.7 MOS/KG (273-304); Potassium 4.2 MMOL/L (3.5-5.1); Sodium 131 MMOL/L (136-145); Total Protein 8.6 G/DL (6.4-8.3)
[2020-04-17] MEDS ORDERED: INSULIN REGULAR 100 UNIT/ML SUBCUT STA (04:31)
[2020-04-17] MEDS ORDERED: SODIUM CHLORIDE 0.9% 500 ML IV STA (06:11)
[2020-04-17] MEDS ORDERED: NICOTINE 21 MG/24 HR PATCH TRANSDERM PRN (06:53)
[2020-04-17] MEDS ORDERED: GLUCAGON 1 MG VIAL IM PRN (06:53)
[2020-04-17] MEDS ORDERED: PROMETHAZINE 25 MG/1 ML VIAL IM PRN (06:53)
[2020-04-17] MEDS ORDERED: guaiFENesin/DM ER 600-30 MG TABLET PO PRN (06:53)
[2020-04-17] MEDS ORDERED: diphenhydrAMINE CAP 25 MG CAPSULE PO PRN (06:53)
[2020-04-17] MEDS ORDERED: ONDANSETRON 4 MG/2 ML VIAL IV PRN (06:53)
[2020-04-17] MEDS ORDERED: DEXTROSE 50% 25 GM/50 ML VIAL IV PRN (06:53)
[2020-04-17] MEDS ORDERED: hydrALAZINE 20 MG/1 ML VIAL IV PRN (06:53)
[2020-04-17] MEDS ORDERED: ZALEPLON 5 MG CAPSULE PO PRN (06:53)
[2020-04-17] MEDS ORDERED: ACETAMINOPHEN 325 MG TABLET PO PRN (06:53)
[2020-04-17] MEDS ORDERED: CLINDAMYCIN INJ 900 MG in PREMIX 1 EACH IV ONE (08:10)
[2020-04-17] MEDS ORDERED: propofoL 200 MG/20 ML VIAL IV ONE (08:18)
[2020-04-17] MEDS ORDERED: LIDOCAINE 2% 5 ML VIAL ONE (08:18)
[2020-04-17] MEDS ORDERED: fentaNYL 100 MCG/2 ML VIAL ONE (08:18)
[2020-04-17] MEDS ORDERED: ONDANSETRON 4 MG/2 ML VIAL ONE (08:18)
[2020-04-17] MEDS ORDERED: MIDAZOLAM 2 MG/2 ML VIAL ONE (08:43)
[2020-04-17] MEDS ORDERED: LIDOCAINE 1% 20 ML VIAL ONE (08:54)
[2020-04-17] MEDS ORDERED: ALUM/MAG/SIMETH/LIDO VISC 1:1 30 ML BOTTLE PO ONE (09:45)
[2020-04-17] MEDS: PANTOPRAZOLE 40 MG TABLET PO SCH (10:20)
[2020-04-17] MEDS: INSULIN LISPRO 100 UNIT/ML SUBCUT SCH ×4 (10:20→20:15)
[2020-04-17] MEDS: SODIUM CHLORIDE 0.9% 1,000 ML IV SCH ×3 (16:36→22:20)
[2020-04-17] MEDS: MORPHINE 4 MG/1 ML VIAL IV PRN ×2 (18:37→22:18)
[2020-04-18] MEDS: MORPHINE 4 MG/1 ML VIAL IV PRN ×5 (02:17→20:30)
[2020-04-18 04:04] LABS: Calcium 8.8 MG/DL (8.5-10.1); Osmolality,Calculated 279.8 MOS/KG (273-304); Potassium 4.5 MMOL/L (3.5-5.1)
[2020-04-18] MEDS: SODIUM CHLORIDE 0.9% 1,000 ML IV SCH ×4 (06:30→21:20)
[2020-04-18] MEDS: INSULIN LISPRO 100 UNIT/ML SUBCUT SCH ×4 (07:51→20:31)
[2020-04-18 08:09] LABS: Alanine Aminotransferase 31 U/L (16-61); Albumin 2.8 G/DL (3.4-5.0); Alkaline Phosphatase 108 U/L (45-117); Aspartate Amino Transferase 15 U/L (0-37); Bilirubin,Total < 0.39 MG/DL (0.2-1.0); Blood Urea Nitrogen 24 MG/DL (7-18); Calcium 8.9 MG/DL (8.5-10.1); Carbon Dioxide 22 MMOL/L (21-32); Estimated Glom Filtration Rate 90 ML/MIN; Glucose 368 MG/DL (74-106); Osmolality,Calculated 278.8 MOS/KG (273-304); Potassium 4.5 MMOL/L (3.5-5.1); Sodium 130 MMOL/L (136-145)
[2020-04-18 08:47] LABS: Basophils % 0.2 % (0.0-0.8); Eosinophils # 0.1 10*3/uL (0.0-0.87); Eosinophils % 3.2 % (0.00-10.9); Hematocrit 33.5 VOL% (42.0-52.0); Hemoglobin 11.1 GM/DL (14.0-18.0); Immature Granulocytes % 0.5 %; Immature Granulocytes Absolute 0.02 #; Lymphocytes # 1.1 10*3/uL (1.4-4.0); Lymphocytes % 27.9 % (21.2-54.2); Mean Corpuscular HGB Conc 33.1 GM/DL (32-36); Mean Platelet Volume 10.2 FL (9.6-12.0); Monocytes % 11.1 % (1.7-12.7); Neutrophils % 57.1 % (38.7-73.9); Platelet Count 257 T/CUMM (130-400); Red Blood Count 4.59 MC/CUMM (3.8-5.5); Red Cell Distribution Width 15.5 % (9.3-17.3); White Blood Count 4.1 T/CUMM (4-12)
[2020-04-18] MEDS ORDERED: hydrALAZINE 25 MG TABLET PO SCH (09:00)
[2020-04-18] MEDS: INSULIN NPH/REGULAR 70/30 100 UNIT/ML SUBCUT SCH ×3 (10:02→17:20)
[2020-04-18] MEDS: hydrALAZINE 25 MG TABLET PO SCH (10:06)
[2020-04-18] MEDS: IRON (CARBONYL)/VIT C/B12/FA TABLET PO SCH (10:07)
[2020-04-18] MEDS: ATORVASTATIN 40 MG TABLET PO SCH (10:07)
[2020-04-18] MEDS: GABAPENTIN 300 MG CAPSULE PO SCH ×3 (10:07→20:31)
[2020-04-18] MEDS: carvediloL 12.5 MG TABLET PO SCH ×2 (10:07→20:31)
[2020-04-18] MEDS: PIPERACILLIN/TAZOBACTAM 3,375 MG in SODIUM CHLORIDE 0.9% 100 ML IV SCH ×2 (10:08→17:21)
[2020-04-18] MEDS: LINEZOLID 600 MG TABLET PO SCH ×2 (10:08→20:31)
[2020-04-18] MEDS: PANTOPRAZOLE 40 MG TABLET PO SCH (10:08)
[2020-04-18] MEDS: SODIUM HYPOCHLORITE 0.25% IRRIG 473 ML BOTTLE TOP SCH (15:30)
[2020-04-18] MEDS ORDERED: traZODone 50 MG TABLET PO SCH (21:00)
[2020-04-19] MEDS: PIPERACILLIN/TAZOBACTAM 3,375 MG in SODIUM CHLORIDE 0.9% 100 ML IV SCH ×3 (01:05→16:55)
[2020-04-19] MEDS: MORPHINE 4 MG/1 ML VIAL IV PRN ×5 (02:10→20:45)
[2020-04-19 07:56] LABS: Basophils % 0.5 % (0.0-0.8); Eosinophils # 0.2 10*3/uL (0.0-0.87); Eosinophils % 4.1 % (0.00-10.9); Hematocrit 31.9 VOL% (42.0-52.0); Hemoglobin 10.8 GM/DL (14.0-18.0); Immature Granulocytes % 0.3 %; Immature Granulocytes Absolute 0.01 #; Lymphocytes # 1.1 10*3/uL (1.4-4.0); Lymphocytes % 29.7 % (21.2-54.2); Mean Corpuscular HGB Conc 33.9 GM/DL (32-36); Mean Corpuscular Volume 72.7 FL (87-102); Mean Platelet Volume 10.1 FL (9.6-12.0); Monocytes % 9.5 % (1.7-12.7); Neutrophils % 55.9 % (38.7-73.9); Platelet Count 267 T/CUMM (130-400); Red Blood Count 4.39 MC/CUMM (3.8-5.5); Red Cell Distribution Width 15.4 % (9.3-17.3); White Blood Count 3.7 T/CUMM (4-12)
[2020-04-19] MEDS: SODIUM CHLORIDE 0.9% 1,000 ML IV SCH (08:00)
[2020-04-19] MEDS: INSULIN LISPRO 100 UNIT/ML SUBCUT SCH ×4 (08:20→20:43)
[2020-04-19] MEDS: INSULIN NPH/REGULAR 70/30 100 UNIT/ML SUBCUT SCH ×3 (08:22→16:35)
[2020-04-19 08:24] LABS: Alanine Aminotransferase 27 U/L (16-61); Albumin 2.8 G/DL (3.4-5.0); Alkaline Phosphatase 111 U/L (45-117); Aspartate Amino Transferase 15 U/L (0-37); Bilirubin,Total < 0.39 MG/DL (0.2-1.0); Blood Urea Nitrogen 21 MG/DL (7-18); Calcium 9.1 MG/DL (8.5-10.1); Carbon Dioxide 26 MMOL/L (21-32); Estimated Glom Filtration Rate 107 ML/MIN; Glucose 348 MG/DL (74-106); Osmolality,Calculated 284.2 MOS/KG (273-304); Potassium 4.4 MMOL/L (3.5-5.1); Sodium 134 MMOL/L (136-145); Total Protein 8.1 G/DL (6.4-8.3)
[2020-04-19] MEDS: hydrALAZINE 25 MG TABLET PO SCH (08:24)
[2020-04-19] MEDS: IRON (CARBONYL)/VIT C/B12/FA TABLET PO SCH (08:25)
[2020-04-19] MEDS: PANTOPRAZOLE 40 MG TABLET PO SCH (08:25)
[2020-04-19] MEDS: ATORVASTATIN 40 MG TABLET PO SCH (08:25)
[2020-04-19] MEDS: carvediloL 12.5 MG TABLET PO SCH ×2 (08:25→20:42)
[2020-04-19] MEDS: GABAPENTIN 300 MG CAPSULE PO SCH ×3 (09:24→20:42)
[2020-04-19] MEDS: LINEZOLID 600 MG TABLET PO SCH ×2 (09:24→20:42)
[2020-04-19] MEDS: LISINOPRIL/HCTZ 20-25 MG TABLET PO SCH (09:24)
[2020-04-19] MEDS: FUROSEMIDE 20 MG TABLET PO SCH (09:24)
[2020-04-19] MEDS: SODIUM HYPOCHLORITE 0.25% IRRIG 473 ML BOTTLE TOP SCH (10:30)
[2020-04-19] MEDS ORDERED: INSULIN GLARGINE 100 UNIT/ML SUBCUT SCH (21:00)
[2020-04-19] MEDS ORDERED: SODIUM CHLORIDE 0.9% 500 ML IV ONE (23:13)
[2020-04-19] MEDS ORDERED: INSULIN LISPRO 100 UNIT/ML SUBCUT ONE (23:51)
[2020-04-20] MEDS: PIPERACILLIN/TAZOBACTAM 3,375 MG in SODIUM CHLORIDE 0.9% 100 ML IV SCH ×3 (01:50→17:14)
[2020-04-20] MEDS: MORPHINE 4 MG/1 ML VIAL IV PRN ×2 (01:50→05:28)
[2020-04-20] MEDS: INSULIN LISPRO 100 UNIT/ML SUBCUT SCH ×3 (05:44→17:26)
[2020-04-20 06:28] LABS: Basophils % 0.5 % (0.0-0.8); Eosinophils # 0.2 10*3/uL (0.0-0.87); Eosinophils % 3.8 % (0.00-10.9); Hematocrit 33.5 VOL% (42.0-52.0); Hemoglobin 11.3 GM/DL (14.0-18.0); Immature Granulocytes % 0.8 %; Immature Granulocytes Absolute 0.03 #; Lymphocytes # 1.2 10*3/uL (1.4-4.0); Mean Corpuscular HGB Conc 33.7 GM/DL (32-36); Mean Corpuscular Volume 73.3 FL (87-102); Mean Platelet Volume 9.9 FL (9.6-12.0); Neutrophils % 54.9 % (38.7-73.9); Platelet Count 277 T/CUMM (130-400); Red Blood Count 4.57 MC/CUMM (3.8-5.5); Red Cell Distribution Width 15.4 % (9.3-17.3); White Blood Count 3.9 T/CUMM (4-12)
[2020-04-20] MEDS ORDERED: INSULIN GLARGINE 100 UNIT/ML SUBCUT SCH (06:48)
[2020-04-20 06:55] LABS: Bilirubin,Total 1.1 MG/DL (0.2-1.0); Calcium 9.1 MG/DL (8.5-10.1); Osmolality,Calculated 289.1 MOS/KG (273-304); Potassium 4.3 MMOL/L (3.5-5.1); Total Protein 8.3 G/DL (6.4-8.3)
[2020-04-20] MEDS: HYDROmorphone 2 MG/1 ML VIAL IV PRN ×3 (08:31→21:21)
[2020-04-20] MEDS: INSULIN NPH/REGULAR 70/30 100 UNIT/ML SUBCUT SCH ×3 (08:34→17:20)
[2020-04-20] MEDS: GABAPENTIN 300 MG CAPSULE PO SCH ×3 (08:36→21:21)
[2020-04-20] MEDS: ATORVASTATIN 40 MG TABLET PO SCH (08:36)
[2020-04-20] MEDS: FUROSEMIDE 20 MG TABLET PO SCH (08:36)
[2020-04-20] MEDS: carvediloL 12.5 MG TABLET PO SCH ×2 (08:36→21:21)
[2020-04-20] MEDS: IRON (CARBONYL)/VIT C/B12/FA TABLET PO SCH (08:36)
[2020-04-20] MEDS: hydrALAZINE 25 MG TABLET PO SCH (08:36)
[2020-04-20] MEDS: PANTOPRAZOLE 40 MG TABLET PO SCH (08:37)
[2020-04-20] MEDS: LINEZOLID 600 MG TABLET PO SCH ×2 (08:37→21:21)
[2020-04-20] MEDS: LISINOPRIL/HCTZ 20-25 MG TABLET PO SCH (08:37)
[2020-04-20] MEDS: SODIUM HYPOCHLORITE 0.25% IRRIG 473 ML BOTTLE TOP SCH (18:40)
[2020-04-21] MEDS: PIPERACILLIN/TAZOBACTAM 3,375 MG in SODIUM CHLORIDE 0.9% 100 ML IV SCH ×2 (00:32→09:10)
[2020-04-21] MEDS: INSULIN LISPRO 100 UNIT/ML SUBCUT SCH ×2 (00:32→06:17)
[2020-04-21] MEDS: HYDROmorphone 2 MG/1 ML VIAL IV PRN ×2 (02:29→09:09)
[2020-04-21 05:31] LABS: Basophils % 0.5 % (0.0-0.8); Eosinophils # 0.2 10*3/uL (0.0-0.87); Eosinophils % 4.4 % (0.00-10.9); Hematocrit 34.5 VOL% (42.0-52.0); Hemoglobin 11.4 GM/DL (14.0-18.0); Immature Granulocytes % 0.7 %; Immature Granulocytes Absolute 0.03 #; Lymphocytes # 1.2 10*3/uL (1.4-4.0); Lymphocytes % 27.6 % (21.2-54.2); Mean Corpuscular Volume 73.6 FL (87-102); Monocytes % 8.6 % (1.7-12.7); Neutrophils % 58.2 % (38.7-73.9); Platelet Count 300 T/CUMM (130-400); Red Blood Count 4.69 MC/CUMM (3.8-5.5); Red Cell Distribution Width 15.9 % (9.3-17.3); White Blood Count 4.3 T/CUMM (4-12)
[2020-04-21 05:57] LABS: Albumin 3.1 G/DL (3.4-5.0); Bilirubin,Total 0.6 MG/DL (0.2-1.0); Calcium 9.3 MG/DL (8.5-10.1); Osmolality,Calculated 284.1 MOS/KG (273-304); Potassium 4.5 MMOL/L (3.5-5.1); Total Protein 8.6 G/DL (6.4-8.3)
[2020-04-21] MEDS: INSULIN NPH/REGULAR 70/30 100 UNIT/ML SUBCUT SCH (08:51)
[2020-04-21] MEDS: PANTOPRAZOLE 40 MG TABLET PO SCH (08:55)
[2020-04-21] MEDS: GABAPENTIN 300 MG CAPSULE PO SCH (08:55)
[2020-04-21] MEDS: IRON (CARBONYL)/VIT C/B12/FA TABLET PO SCH (08:55)
[2020-04-21] MEDS: LINEZOLID 600 MG TABLET PO SCH (08:56)
[2020-04-21] MEDS: carvediloL 12.5 MG TABLET PO SCH (08:56)
[2020-04-21] MEDS: FUROSEMIDE 20 MG TABLET PO SCH (08:56)
[2020-04-21] MEDS: ATORVASTATIN 40 MG TABLET PO SCH (08:56)
[2020-04-21] MEDS: hydrALAZINE 25 MG TABLET PO SCH (09:08)
[2020-04-21] MEDS: LISINOPRIL/HCTZ 20-25 MG TABLET PO SCH (09:09)
[2020-04-21] MEDS: SODIUM HYPOCHLORITE 0.25% IRRIG 473 ML BOTTLE TOP SCH (09:09)
[2020-04-21 11:53] VITALS: BP 129/98
== END 2020-04-21 12:09 | disposition home or self-care (01) | DRG 305 ==
LOC: N.ED 00:43 → N.EDINP 00:43 → N.3E 09:55 → SUATTDRO 04-18 14:44
PROVIDERS: ADMIT Internal Medicine; ATTEND Internal Medicine

== ENCOUNTER 2021-09-01 12:24 | Inpatient (IN) ==
[2021-09-01] MEDS ORDERED: SODIUM CHLORIDE 0.9% 1,000 ML IV STA ×2 (13:44→14:40)
[2021-09-01 14:43] LABS: Alanine Aminotransferase 19 U/L (16-61); Albumin 0.9 G/DL (3.4-5.0); Alkaline Phosphatase 46 U/L (45-117); Aspartate Amino Transferase 9 U/L (0-37); Bilirubin,Total < 0.39 MG/DL (0.20-1.00); Blood Urea Nitrogen 14 MG/DL (7-18); Carbon Dioxide 9 MMOL/L (21-32); Chloride 133 MMOL/L (98-107); Glucose 286 MG/DL (74-106); Sodium 150 MMOL/L (136-145)
[2021-09-01 14:50] LABS: Basophils % 0.4 % (0.0-0.8); Eosinophils # 0.2 10*3/uL (0.0-0.87); Eosinophils % 3.2 % (0.00-10.9); Hemoglobin 13.4 GM/DL (14.0-18.0); Immature Granulocytes % 0.2 %; Immature Granulocytes Absolute 0.01 #; Lymphocytes # 1.1 10*3/uL (1.4-4.0); Lymphocytes % 20.9 % (21.2-54.2); Mean Corpuscular HGB Conc 33.5 GM/DL (32-36); Mean Corpuscular Volume 77.7 FL (87-102); Mean Platelet Volume 10.7 FL (9.6-12.0); Monocytes # 0.4 10*3/uL (0.11-0.8); Monocytes % 8.3 % (1.7-12.7); Platelet Count 188 T/CUMM (130-400); Red Blood Count 5.15 MC/CUMM (3.8-5.5); White Blood Count 5.3 T/CUMM (4-12)
[2021-09-01 14:50] LABS: Calcium < 5.0 MG/DL (8.5-10.1)
[2021-09-01 14:51] LABS: Potassium 1.8 MMOL/L (3.5-5.1)
[2021-09-01 15:09] LABS: INR 0.9; PT Patient Result 9.8 SECS (10.5-12.0); Partial Thromboplastin Time 21.7 SECS (23.8-32.1)
[2021-09-01 15:13] LABS: Arterial Base Excess iSTAT -3 MMOL/L (-2.5-2.5); Arterial Bicarbonate iSTAT 23.8 MMOL/L (20-26); Arterial O2 Saturation iSTAT 99 % (95-100); Arterial PCO2 iSTAT 47 MM HG (35-48); Arterial PO2 iSTAT 133 MM HG (80-95); Arterial Total CO2 iSTAT 25 MMO/L (23-27); Arterial pH iSTAT 7.313 (7.35-7.45)
[2021-09-01] MEDS ORDERED: POTASSIUM CHLORIDE 20 MEQ TABLET PO STA (15:17)
[2021-09-01] MEDS ORDERED: ALBUTEROL 2.5 MG/3 ML NEB RESP TX PRN (15:32)
[2021-09-01] MEDS ORDERED: CALCIUM GLUCONATE RIDER 2,000 MG/100 ML PREMIX IV ONE (15:38)
[2021-09-01] MEDS ORDERED: LACTATED RINGERS 1,000 ML IV ONE (15:40)
[2021-09-01] MEDS ORDERED: GLUCAGON 1 MG VIAL IM PRN (17:10)
[2021-09-01] MEDS ORDERED: POTASSIUM CHLORIDE RIDER 10 MEQ/100 ML PREMIX IV PRN (17:14)
[2021-09-01] MEDS ORDERED: DEXTROSE 10% 250 ML BAG IV PRN (17:16)
[2021-09-01] MEDS ORDERED: MAGNESIUM SULF RIDER 2 GM/50 ML PREMIX IV PRN (17:21)
[2021-09-01] MEDS ORDERED: MAGNESIUM SULF RIDER 4 GM/100 ML PREMIX IV PRN (17:21)
[2021-09-01] MEDS ORDERED: POTASSIUM CHLORIDE INJ 40 MEQ in SODIUM CHLORIDE 0.45% 1,000 ML IV SCH (17:30)
[2021-09-01 17:50] LABS: Osmolality,Calculated 291.8 MOS/KG (273-304); Potassium 4.9 MMOL/L (3.5-5.1)
[2021-09-01 20:18] LABS: Calcium 9.5 MG/DL (8.5-10.1); Osmolality,Calculated 287.8 MOS/KG (273-304); Potassium 5.1 MMOL/L (3.5-5.1)
[2021-09-01] MEDS: carvediloL 12.5 MG TABLET PO SCH (20:24)
[2021-09-01] MEDS: INSULIN GLARGINE 100 UNIT/ML SUBCUT SCH (20:25)
[2021-09-01] MEDS ORDERED: PREGABALIN 100 MG CAPSULE PO SCH (21:00)
[2021-09-01] MEDS ORDERED: busPIRone 10 MG TABLET PO SCH (21:00)
[2021-09-01] MEDS ORDERED: INSULIN REGULAR 100 UNIT/ML SUBCUT SCH (21:00)
[2021-09-01] MEDS ORDERED: hydrALAZINE 20 MG/1 ML VIAL IV PRN (21:53)
[2021-09-01] MEDS ORDERED: MORPHINE 2 MG/1 ML SYRINGE IV PRN (21:53)
[2021-09-01] MEDS: POTASSIUM CHLORIDE RIDER 10 MEQ/100 ML PREMIX IV SCH ×2 (21:59→22:00)
[2021-09-01] MEDS: SODIUM CHLORIDE 0.9% 1,000 ML IV SCH (22:45)
[2021-09-01] MEDS ORDERED: DEXTROSE 50% 25 GM/50 ML VIAL IV PRN (23:01)
[2021-09-01] MEDS: INSULIN LISPRO 100 UNIT/ML SUBCUT SCH (23:18)
[2021-09-02 01:07] LABS: Calcium 9.7 MG/DL (8.5-10.1); Osmolality,Calculated 283.2 MOS/KG (273-304); Potassium 4.8 MMOL/L (3.5-5.1)
[2021-09-02] MEDS: INSULIN LISPRO 100 UNIT/ML SUBCUT SCH ×2 (03:03→08:40)
[2021-09-02 04:09] VITALS: BP 142/99
[2021-09-02 04:34] LABS: Basophils % 0.6 % (0.0-0.8); Eosinophils # 0.4 10*3/uL (0.0-0.87); Eosinophils % 5.8 % (0.00-10.9); Hematocrit 41.7 VOL% (42.0-52.0); Hemoglobin 13.9 GM/DL (14.0-18.0); Immature Granulocytes % 0.2 %; Immature Granulocytes Absolute 0.01 #; Lymphocytes # 1.9 10*3/uL (1.4-4.0); Lymphocytes % 29.4 % (21.2-54.2); Mean Corpuscular HGB Conc 33.3 GM/DL (32-36); Mean Corpuscular Volume 78.4 FL (87-102); Mean Platelet Volume 10.8 FL (9.6-12.0); Monocytes # 0.6 10*3/uL (0.11-0.8); Monocytes % 9.9 % (1.7-12.7); Neutrophils % 54.1 % (38.7-73.9); Platelet Count 294 T/CUMM (130-400); Red Blood Count 5.32 MC/CUMM (3.8-5.5); Red Cell Distribution Width 12.9 % (9.3-17.3); White Blood Count 6.4 T/CUMM (4-12)
[2021-09-02 04:57] LABS: Alanine Aminotransferase 56 U/L (16-61); Albumin 3.6 G/DL (3.4-5.0); Alkaline Phosphatase 142 U/L (45-117); Aspartate Amino Transferase 20 U/L (0-37); Bilirubin,Total < 0.39 MG/DL (0.20-1.00); Blood Urea Nitrogen 24 MG/DL (7-18); Calcium 10.2 MG/DL (8.5-10.1); Carbon Dioxide 26 MMOL/L (21-32); Chloride 104 MMOL/L (98-107); Cholesterol 215 MG/DL (50-200); Glucose 80 MG/DL (74-106); HDL Cholesterol 42 MG/DL (40-60); Osmolality,Calculated 272.1 MOS/KG (273-304); Potassium 4.5 MMOL/L (3.5-5.1); Risk Ratio 5.12; Sodium 135 MMOL/L (136-145); Total Protein 8.4 G/DL (6.4-8.2); Triglycerides 160 MG/DL (2-150)
[2021-09-02] MEDS: SODIUM CHLORIDE 0.9% 1,000 ML IV SCH (05:11)
[2021-09-02] MEDS: hydrALAZINE 25 MG TABLET PO SCH ×2 (07:34→08:21)
[2021-09-02] MEDS: carvediloL 12.5 MG TABLET PO SCH ×2 (07:34→08:21)
[2021-09-02] MEDS ORDERED: FERROUS SULFATE 325 MG TABLET PO SCH (09:00)
[2021-09-02] MEDS ORDERED: PREGABALIN 50 MG CAPSULE PO SCH (09:00)
[2021-09-02] MEDS ORDERED: ROSUVASTATIN 20 MG TABLET PO SCH (09:00)
[2021-09-02] MEDS ORDERED: CYCLOBENZAPRINE 10 MG TABLET PO SCH (09:00)
[2021-09-02] MEDS ORDERED: buPROPion 100 MG TABLET PO SCH (09:00)
[2021-09-02] MEDS ORDERED: DULoxetine 30 MG CAPSULE PO SCH (09:00)
[2021-09-02] MEDS: INSULIN GLARGINE 100 UNIT/ML SUBCUT SCH (09:11)
== END 2021-09-02 11:15 | disposition home or self-care (01) | DRG 812 ==
LOC: N.ED 12:24 → SUATTDRO 15:32 → N.EDINP 15:32 → N.ICU 19:44
PROVIDERS: ADMIT Internal Medicine; ATTEND Internal Medicine Geriatric Medicine

== ENCOUNTER 2021-11-09 16:09 | Observation (INO) ==
[2021-11-09 21:45] LABS: Basophils % 0.5 % (0.0-0.8); Eosinophils # 0.1 10*3/uL (0.0-0.87); Eosinophils % 3.2 % (0.00-10.9); Hemoglobin 13.8 GM/DL (14.0-18.0); Immature Granulocytes % 0.2 %; Immature Granulocytes Absolute 0.01 #; Lymphocytes # 1.4 10*3/uL (1.4-4.0); Lymphocytes % 34.1 % (21.2-54.2); Mean Corpuscular HGB Conc 32.9 GM/DL (32-36); Mean Corpuscular Volume 79.1 FL (87-102); Mean Platelet Volume 11.1 FL (9.6-12.0); Monocytes # 0.4 10*3/uL (0.11-0.8); Monocytes % 9.7 % (1.7-12.7); Neutrophils % 52.3 % (38.7-73.9); Platelet Count 229 T/CUMM (130-400); Red Blood Count 5.31 MC/CUMM (3.8-5.5); Red Cell Distribution Width 12.6 % (9.3-17.3)
[2021-11-09 21:47] LABS: Alanine Aminotransferase 40 U/L (16-61); Albumin 3.5 G/DL (3.4-5.0); Alkaline Phosphatase 104 U/L (45-117); Aspartate Amino Transferase 19 U/L (0-37); Bilirubin,Total < 0.39 MG/DL (0.20-1.00); Blood Urea Nitrogen 23 MG/DL (7-18); Calcium 9.5 MG/DL (8.5-10.1); Carbon Dioxide 26 MMOL/L (21-32); Chloride 98 MMOL/L (98-107); Glucose 485 MG/DL (74-106); Osmolality,Calculated 288.5 MOS/KG (273-304); Potassium 4.7 MMOL/L (3.5-5.1); Sodium 132 MMOL/L (136-145); Total Protein 8.2 G/DL (6.4-8.2)
[2021-11-09] MEDS ORDERED: SODIUM CHLORIDE 0.9% 1,000 ML IV STA (22:50)
[2021-11-09 23:23] LABS: RBC,Urine 1 /HPF (0-4)
[2021-11-09 23:24] LABS: Bilirubin,Urine Negative (Negative); Blood, Urine Negative (Negative); Glucose,Urine (UA) 500 mg/dL (Negative); Ketones,Urine Negative (Negative); Nitrite,Urine Negative (Negative); Protein,Urine 30 mg/dL (Negative); Urine Appearance Clear (Clear); Urine Color Yellow (Yellow); Urine Urobilinogen 0.2 eU/dL (<2.0); Urine pH 5.5 (4.5-8.0)
[2021-11-09] MEDS ORDERED: INSULIN REGULAR 100 UNIT/ML SUBCUT STA (23:31)
[2021-11-09 23:34] LABS: Barbiturates Screen,Urine Negative (Negative); Benzodiazepines Screen,Urine Negative (Negative); Cannabinoid Screen,Urine Negative (Negative); Opiate Screen,Urine Positive (Negative); Phencyclidine Screen,Urine Negative (Negative)
[2021-11-09 23:35] LABS: ABG Base Excess 2.3 MMOL/L (-2.5-2.5); ABG HCO3 26.4 MMOL/L (20-26); ABG Oxygen Saturation 94.6 % (95-100); ABG PCO2 47.9 MM HG (35-48); ABG PH 7.379 (7.35-7.45); ABG PO2 77.7 MM HG (80-95); ABG TCO2 24.5 MMOL/L (23-27)
[2021-11-09] MEDS ORDERED: GLUCAGON 1 MG VIAL IM PRN (23:50)
[2021-11-09] MEDS ORDERED: DEXTROSE 10% 250 ML BAG IV PRN (23:50)
[2021-11-09] MEDS ORDERED: IBUPROFEN 600 MG TABLET PO PRN (23:50)
[2021-11-09] MEDS ORDERED: ACETAMINOPHEN 325 MG TABLET PO PRN (23:50)
[2021-11-09] MEDS ORDERED: ONDANSETRON 4 MG/2 ML VIAL IV PRN (23:50)
[2021-11-10] MEDS: SODIUM CHLORIDE 0.9% 1,000 ML IV SCH ×4 (02:24→22:10)
[2021-11-10 05:22] LABS: Basophils % 0.3 % (0.0-0.8); Eosinophils # 0.2 10*3/uL (0.0-0.87); Eosinophils % 4.4 % (0.00-10.9); Hematocrit 39.4 VOL% (42.0-52.0); Hemoglobin 12.9 GM/DL (14.0-18.0); Immature Granulocytes % 0.3 %; Immature Granulocytes Absolute 0.01 #; Lymphocytes # 1.4 10*3/uL (1.4-4.0); Mean Corpuscular HGB Conc 32.7 GM/DL (32-36); Mean Platelet Volume 10.8 FL (9.6-12.0); Monocytes # 0.3 10*3/uL (0.11-0.8); Monocytes % 8.5 % (1.7-12.7); Neutrophils % 46.5 % (38.7-73.9); Platelet Count 219 T/CUMM (130-400); Red Blood Count 5.05 MC/CUMM (3.8-5.5); Red Cell Distribution Width 12.5 % (9.3-17.3); White Blood Count 3.4 T/CUMM (4-12)
[2021-11-10 05:47] LABS: Calcium 9.2 MG/DL (8.5-10.1); Potassium 4.6 MMOL/L (3.5-5.1)
[2021-11-10] MEDS: INSULIN LISPRO 100 UNIT/ML SUBCUT SCH ×4 (08:08→22:08)
[2021-11-10] MEDS: ENOXAPARIN 40 MG/0.4 ML SYRINGE SUBCUT SCH (08:52)
[2021-11-10] MEDS: PANTOPRAZOLE 40 MG TABLET PO SCH (08:52)
[2021-11-10] MEDS ORDERED: hydrALAZINE 25 MG TABLET PO STA (11:16)
[2021-11-10] MEDS: DOCUSATE SODIUM 100 MG CAPSULE PO SCH ×2 (11:23→22:07)
[2021-11-10] MEDS ORDERED: carvediloL 12.5 MG TABLET PO SCH (21:00)
[2021-11-10] MEDS: QUEtiapine 25 MG TABLET PO SCH (22:07)
[2021-11-10] MEDS: DULoxetine 30 MG CAPSULE PO SCH (22:07)
[2021-11-10] MEDS: busPIRone 10 MG TABLET PO SCH (22:07)
[2021-11-10] MEDS: PREGABALIN 100 MG CAPSULE PO SCH (22:07)
[2021-11-10] MEDS: INSULIN GLARGINE 100 UNIT/ML SUBCUT SCH (22:10)
[2021-11-11 09:07] LABS: Calcium 8.9 MG/DL (8.5-10.1); Osmolality,Calculated 286.5 MOS/KG (273-304)
[2021-11-11] MEDS: INSULIN LISPRO 100 UNIT/ML SUBCUT SCH ×4 (09:25→21:38)
[2021-11-11] MEDS: SODIUM CHLORIDE 0.9% 1,000 ML IV SCH ×2 (09:25→15:01)
[2021-11-11] MEDS: ROSUVASTATIN 20 MG TABLET PO SCH (09:27)
[2021-11-11] MEDS: DULoxetine 30 MG CAPSULE PO SCH ×2 (09:27→21:35)
[2021-11-11] MEDS: FERROUS SULFATE 325 MG TABLET PO SCH (09:27)
[2021-11-11] MEDS: DOCUSATE SODIUM 100 MG CAPSULE PO SCH ×2 (09:27→21:36)
[2021-11-11] MEDS: INSULIN GLARGINE 100 UNIT/ML SUBCUT SCH ×2 (09:27→21:37)
[2021-11-11] MEDS: hydrALAZINE 25 MG TABLET PO SCH (09:27)
[2021-11-11] MEDS: carvediloL 12.5 MG TABLET PO SCH ×2 (09:27→16:39)
[2021-11-11] MEDS: ENOXAPARIN 40 MG/0.4 ML SYRINGE SUBCUT SCH (09:28)
[2021-11-11] MEDS: PREGABALIN 100 MG CAPSULE PO SCH ×2 (09:28→21:35)
[2021-11-11] MEDS: PANTOPRAZOLE 40 MG TABLET PO SCH (09:28)
[2021-11-11] MEDS ORDERED: MAGNESIUM HYDROXIDE SUSP 30 ML UDCUP PO PRN (15:47)
[2021-11-11] MEDS ORDERED: BISACODYL 5 MG TABLET PO ONE (16:00)
[2021-11-11] MEDS ORDERED: MAGNESIUM HYDROXIDE SUSP 30 ML UDCUP PO ONE (16:00)
[2021-11-11] MEDS: cefTRIAXone 1,000 MG in SODIUM CHLORIDE 0.9% 100 ML IV SCH (16:39)
[2021-11-11] MEDS: busPIRone 10 MG TABLET PO SCH (21:35)
[2021-11-11] MEDS: QUEtiapine 25 MG TABLET PO SCH (21:36)
[2021-11-11] MEDS: traMADol 50 MG TABLET PO PRN (21:51)
[2021-11-12] MEDS: SODIUM CHLORIDE 0.9% 1,000 ML IV SCH ×3 (01:25→21:49)
[2021-11-12 04:50] LABS: Basophils % 0.3 % (0.0-0.8); Eosinophils # 0.1 10*3/uL (0.0-0.87); Eosinophils % 3.3 % (0.00-10.9); Hematocrit 36.1 VOL% (42.0-52.0); Hemoglobin 11.7 GM/DL (14.0-18.0); Immature Granulocytes % 0.3 %; Immature Granulocytes Absolute 0.01 #; Lymphocytes # 1.1 10*3/uL (1.4-4.0); Lymphocytes % 33.8 % (21.2-54.2); Mean Corpuscular HGB Conc 32.4 GM/DL (32-36); Mean Corpuscular Volume 79.7 FL (87-102); Mean Platelet Volume 10.6 FL (9.6-12.0); Monocytes # 0.4 10*3/uL (0.11-0.8); Monocytes % 11.8 % (1.7-12.7); Neutrophils % 50.5 % (38.7-73.9); Platelet Count 237 T/CUMM (130-400); Red Blood Count 4.53 MC/CUMM (3.8-5.5); Red Cell Distribution Width 12.9 % (9.3-17.3); White Blood Count 3.3 T/CUMM (4-12)
[2021-11-12 05:07] LABS: Calcium 8.9 MG/DL (8.5-10.1); Osmolality,Calculated 292.4 MOS/KG (273-304); Potassium 4.6 MMOL/L (3.5-5.1)
[2021-11-12] MEDS: INSULIN LISPRO 100 UNIT/ML SUBCUT SCH ×4 (08:51→21:46)
[2021-11-12] MEDS: INSULIN GLARGINE 100 UNIT/ML SUBCUT SCH ×2 (08:51→21:48)
[2021-11-12] MEDS: ENOXAPARIN 40 MG/0.4 ML SYRINGE SUBCUT SCH (08:52)
[2021-11-12] MEDS: DOCUSATE SODIUM 100 MG CAPSULE PO SCH ×2 (08:53→21:47)
[2021-11-12] MEDS: PREGABALIN 100 MG CAPSULE PO SCH ×2 (08:53→21:47)
[2021-11-12] MEDS: DULoxetine 30 MG CAPSULE PO SCH ×2 (08:53→21:47)
[2021-11-12] MEDS: hydrALAZINE 25 MG TABLET PO SCH (08:53)
[2021-11-12] MEDS: carvediloL 12.5 MG TABLET PO SCH ×2 (08:53→17:11)
[2021-11-12] MEDS: BISACODYL 5 MG TABLET PO SCH (08:53)
[2021-11-12] MEDS: FERROUS SULFATE 325 MG TABLET PO SCH (08:53)
[2021-11-12] MEDS: PANTOPRAZOLE 40 MG TABLET PO SCH (08:53)
[2021-11-12] MEDS: ROSUVASTATIN 20 MG TABLET PO SCH (08:57)
[2021-11-12] MEDS: DAPAGLIFLOZIN 5 MG TABLET PO SCH (12:24)
[2021-11-12] MEDS: glipiZIDE 10 MG TABLET PO SCH (17:11)
[2021-11-12] MEDS: cefTRIAXone 1,000 MG in SODIUM CHLORIDE 0.9% 100 ML IV SCH (17:11)
[2021-11-12] MEDS: QUEtiapine 25 MG TABLET PO SCH (21:47)
[2021-11-12] MEDS: busPIRone 10 MG TABLET PO SCH (21:47)
[2021-11-12] MEDS: traMADol 50 MG TABLET PO PRN (21:48)
[2021-11-13] MEDS: INSULIN LISPRO 100 UNIT/ML SUBCUT SCH ×6 (01:03→20:33)
[2021-11-13] MEDS: SODIUM CHLORIDE 0.9% 1,000 ML IV SCH (06:10)
[2021-11-13] MEDS: INSULIN GLARGINE 100 UNIT/ML SUBCUT SCH ×2 (08:47→20:32)
[2021-11-13] MEDS: glipiZIDE 10 MG TABLET PO SCH ×2 (08:49→16:40)
[2021-11-13] MEDS: ROSUVASTATIN 20 MG TABLET PO SCH (08:49)
[2021-11-13] MEDS: ENOXAPARIN 40 MG/0.4 ML SYRINGE SUBCUT SCH (08:49)
[2021-11-13] MEDS: PANTOPRAZOLE 40 MG TABLET PO SCH (08:49)
[2021-11-13] MEDS: hydrALAZINE 25 MG TABLET PO SCH (08:50)
[2021-11-13] MEDS: FERROUS SULFATE 325 MG TABLET PO SCH (08:50)
[2021-11-13] MEDS: DOCUSATE SODIUM 100 MG CAPSULE PO SCH ×2 (08:50→20:34)
[2021-11-13] MEDS: BISACODYL 5 MG TABLET PO SCH (08:50)
[2021-11-13] MEDS: DULoxetine 30 MG CAPSULE PO SCH ×2 (08:50→20:34)
[2021-11-13] MEDS: PREGABALIN 100 MG CAPSULE PO SCH ×2 (08:50→20:34)
[2021-11-13] MEDS: DAPAGLIFLOZIN 5 MG TABLET PO SCH (08:59)
[2021-11-13] MEDS: carvediloL 12.5 MG TABLET PO SCH ×2 (08:59→16:40)
[2021-11-13] MEDS: FEXOFENADINE 180 MG TABLET PO SCH (12:24)
[2021-11-13] MEDS ORDERED: DAPAGLIFLOZIN 5 MG TABLET PO ONE (13:30)
[2021-11-13] MEDS ORDERED: hydrALAZINE 25 MG TABLET PO ONE (14:00)
[2021-11-13 14:56] LABS: Basophils % 0.7 % (0.0-0.8); Eosinophils # 0.1 10*3/uL (0.0-0.87); Eosinophils % 3.2 % (0.00-10.9); Hematocrit 37.2 VOL% (42.0-52.0); Hemoglobin 12.2 GM/DL (14.0-18.0); Immature Granulocytes % 0.5 %; Immature Granulocytes Absolute 0.02 #; Lymphocytes # 1.1 10*3/uL (1.4-4.0); Lymphocytes % 27.3 % (21.2-54.2); Mean Corpuscular HGB Conc 32.8 GM/DL (32-36); Mean Corpuscular Volume 78.3 FL (87-102); Mean Platelet Volume 10.5 FL (9.6-12.0); Monocytes # 0.4 10*3/uL (0.11-0.8); Monocytes % 10.1 % (1.7-12.7); Neutrophils % 58.2 % (38.7-73.9); Platelet Count 271 T/CUMM (130-400); Red Blood Count 4.75 MC/CUMM (3.8-5.5); White Blood Count 4.1 T/CUMM (4-12)
[2021-11-13] MEDS ORDERED: FUROSEMIDE 40 MG/4 ML VIAL IV ONE (15:03)
[2021-11-13] MEDS: cefTRIAXone 1,000 MG in SODIUM CHLORIDE 0.9% 100 ML IV SCH (16:41)
[2021-11-13] MEDS: QUEtiapine 25 MG TABLET PO SCH (20:34)
[2021-11-13] MEDS: MONTELUKAST 10 MG TABLET PO SCH (20:34)
[2021-11-13] MEDS: busPIRone 10 MG TABLET PO SCH (20:40)
[2021-11-14] MEDS: INSULIN LISPRO 100 UNIT/ML SUBCUT SCH ×6 (00:28→20:48)
[2021-11-14] MEDS: SODIUM CHLORIDE 0.9% 1,000 ML IV SCH ×3 (06:23→16:21)
[2021-11-14 06:50] LABS: Basophils % 0.5 % (0.0-0.8); Eosinophils # 0.1 10*3/uL (0.0-0.87); Eosinophils % 2.9 % (0.00-10.9); Hematocrit 37.2 VOL% (42.0-52.0); Hemoglobin 12.3 GM/DL (14.0-18.0); Immature Granulocytes % 0.5 %; Immature Granulocytes Absolute 0.02 #; Lymphocytes # 1.2 10*3/uL (1.4-4.0); Lymphocytes % 30.8 % (21.2-54.2); Mean Corpuscular HGB Conc 33.1 GM/DL (32-36); Mean Platelet Volume 11.2 FL (9.6-12.0); Monocytes # 0.4 10*3/uL (0.11-0.8); Monocytes % 9.9 % (1.7-12.7); Neutrophils % 55.4 % (38.7-73.9); Platelet Count 287 T/CUMM (130-400); Red Blood Count 4.71 MC/CUMM (3.8-5.5); Red Cell Distribution Width 13.2 % (9.3-17.3); White Blood Count 3.8 T/CUMM (4-12)
[2021-11-14 07:04] LABS: Calcium 9.2 MG/DL (8.5-10.1); Osmolality,Calculated 295.3 MOS/KG (273-304); Potassium 3.6 MMOL/L (3.5-5.1)
[2021-11-14] MEDS: DOCUSATE SODIUM 100 MG CAPSULE PO SCH ×2 (08:56→20:49)
[2021-11-14] MEDS: FERROUS SULFATE 325 MG TABLET PO SCH (08:56)
[2021-11-14] MEDS: DAPAGLIFLOZIN 10 MG TABLET PO SCH (08:56)
[2021-11-14] MEDS: PREGABALIN 100 MG CAPSULE PO SCH ×2 (08:56→20:49)
[2021-11-14] MEDS: PANTOPRAZOLE 40 MG TABLET PO SCH (08:56)
[2021-11-14] MEDS: ROSUVASTATIN 20 MG TABLET PO SCH (08:56)
[2021-11-14] MEDS: DULoxetine 30 MG CAPSULE PO SCH ×2 (08:56→20:49)
[2021-11-14] MEDS: ENOXAPARIN 40 MG/0.4 ML SYRINGE SUBCUT SCH (08:57)
[2021-11-14] MEDS: glipiZIDE 10 MG TABLET PO SCH ×2 (08:57→16:18)
[2021-11-14] MEDS: BISACODYL 5 MG TABLET PO SCH (08:57)
[2021-11-14] MEDS: carvediloL 12.5 MG TABLET PO SCH ×2 (08:57→16:18)
[2021-11-14] MEDS: FEXOFENADINE 180 MG TABLET PO SCH (08:57)
[2021-11-14] MEDS: INSULIN GLARGINE 100 UNIT/ML SUBCUT SCH ×2 (08:58→20:49)
[2021-11-14] MEDS ORDERED: FUROSEMIDE 40 MG/4 ML VIAL IV SCH (09:00)
[2021-11-14] MEDS: traMADol 50 MG TABLET PO PRN (09:06)
[2021-11-14] MEDS: cefTRIAXone 1,000 MG in SODIUM CHLORIDE 0.9% 100 ML IV SCH (16:18)
[2021-11-14] MEDS: QUEtiapine 25 MG TABLET PO SCH (20:49)
[2021-11-14] MEDS: busPIRone 10 MG TABLET PO SCH (20:49)
[2021-11-14] MEDS: MONTELUKAST 10 MG TABLET PO SCH (20:49)
[2021-11-15] MEDS: INSULIN LISPRO 100 UNIT/ML SUBCUT SCH ×4 (00:12→11:04)
[2021-11-15] MEDS: DULoxetine 30 MG CAPSULE PO SCH (08:37)
[2021-11-15] MEDS: carvediloL 12.5 MG TABLET PO SCH (08:38)
[2021-11-15] MEDS: ROSUVASTATIN 20 MG TABLET PO SCH (08:38)
[2021-11-15] MEDS: PANTOPRAZOLE 40 MG TABLET PO SCH (08:38)
[2021-11-15] MEDS: glipiZIDE 10 MG TABLET PO SCH (08:38)
[2021-11-15] MEDS: FERROUS SULFATE 325 MG TABLET PO SCH (08:38)
[2021-11-15] MEDS: DAPAGLIFLOZIN 10 MG TABLET PO SCH (08:38)
[2021-11-15] MEDS: FEXOFENADINE 180 MG TABLET PO SCH (08:38)
[2021-11-15] MEDS: PREGABALIN 100 MG CAPSULE PO SCH (08:38)
[2021-11-15] MEDS: ENOXAPARIN 40 MG/0.4 ML SYRINGE SUBCUT SCH (08:39)
[2021-11-15] MEDS: DOCUSATE SODIUM 100 MG CAPSULE PO SCH (08:39)
[2021-11-15] MEDS: BISACODYL 5 MG TABLET PO SCH (08:39)
[2021-11-15] MEDS ORDERED: PIOGLITAZONE 15 MG TABLET PO SCH (09:00)
[2021-11-15] MEDS ORDERED: FUROSEMIDE 40 MG TABLET PO SCH (09:00)
[2021-11-15] MEDS: INSULIN GLARGINE 100 UNIT/ML SUBCUT SCH (10:00)
[2021-11-15 12:27] VITALS: BP 145/81
[2021-11-15] MEDS: traMADol 50 MG TABLET PO PRN (14:01)
== END 2021-11-15 16:15 | disposition home or self-care (01) ==
LOC: N.EDINP 16:09 → N.ED 16:09 → N.3E 11-10 11:04
PROVIDERS: ADMIT Internal Medicine; ATTEND Internal Medicine

== ENCOUNTER 2022-05-06 09:32 | Inpatient (IN) ==
[2022-05-06] MEDS ORDERED: SODIUM CHLORIDE 0.9% 1,000 ML IV STA (11:24)
[2022-05-06] MEDS ORDERED: HYDROmorphone 1 MG/1 ML SYRINGE ONE (11:41)
[2022-05-06] MEDS ORDERED: ONDANSETRON 4 MG/2 ML VIAL ONE (11:41)
[2022-05-06 11:44] LABS: Basophils % 0.1 % (0.0-0.8); Eosinophils # 0.2 10*3/uL (0.0-0.87); Eosinophils % 3.2 % (0.00-10.9); Hematocrit 39.8 VOL% (42.0-52.0); Immature Granulocytes % 0.3 %; Immature Granulocytes Absolute 0.02 #; Lymphocytes # 0.9 10*3/uL (1.4-4.0); Lymphocytes % 13.4 % (21.2-54.2); Mean Corpuscular HGB Conc 32.7 GM/DL (32-36); Mean Corpuscular Volume 76.2 FL (87-102); Monocytes # 0.5 10*3/uL (0.11-0.8); Monocytes % 7.8 % (1.7-12.7); Neutrophils % 75.2 % (38.7-73.9); Platelet Count 225 T/CUMM (130-400); Red Blood Count 5.22 MC/CUMM (3.8-5.5); Red Cell Distribution Width 14.1 % (9.3-17.3); White Blood Count 6.8 T/CUMM (4-12)
[2022-05-06] MEDS ORDERED: MEROPENEM 1,000 MG in SODIUM CHLORIDE 0.9% 100 ML IV STA (11:52)
[2022-05-06] MEDS ORDERED: CLINDAMYCIN INJ 600 MG/50 ML PREMIX IV STA (11:52)
[2022-05-06] MEDS ORDERED: HYDROmorphone 1 MG/1 ML SYRINGE IV STA (12:04)
[2022-05-06] MEDS ORDERED: ONDANSETRON 4 MG/2 ML VIAL IV STA (12:04)
[2022-05-06 12:06] LABS: Alanine Aminotransferase 30 U/L (16-61); Albumin 3.6 G/DL (3.4-5.0); Alkaline Phosphatase 163 U/L (45-117); Aspartate Amino Transferase 15 U/L (0-37); Bilirubin,Total < 0.39 MG/DL (0.20-1.00); Blood Urea Nitrogen 20 MG/DL (7-18); Calcium 9.8 MG/DL (8.5-10.1); Carbon Dioxide 24 MMOL/L (21-32); Chloride 98 MMOL/L (98-107); Osmolality,Calculated 299.5 MOS/KG (273-304); Potassium 4.1 MMOL/L (3.5-5.1); Sodium 132 MMOL/L (136-145); Total Protein 8.4 G/DL (6.4-8.2)
[2022-05-06 12:09] LABS: Glucose 687 MG/DL (74-106)
[2022-05-06] MEDS ORDERED: INSULIN REGULAR 100 UNIT/ML SUBCUT STA (12:17)
[2022-05-06] MEDS ORDERED: GLUCAGON 1 MG VIAL IM PRN (12:18)
[2022-05-06] MEDS ORDERED: ACETAMINOPHEN 325 MG TABLET PO PRN (12:18)
[2022-05-06] MEDS ORDERED: ONDANSETRON 4 MG/2 ML VIAL IV PRN (12:18)
[2022-05-06] MEDS ORDERED: DEXTROSE 10% 250 ML BAG IV PRN (12:36)
[2022-05-06] MEDS: SODIUM CHLORIDE 0.9% 1,000 ML IV SCH (13:08)
[2022-05-06] MEDS ORDERED: hydrALAZINE 20 MG/1 ML VIAL ONE (13:50)
[2022-05-06] MEDS ORDERED: cloNIDine 0.1 MG TABLET ONE (14:16)
[2022-05-06] MEDS ORDERED: FUROSEMIDE 40 MG/4 ML VIAL ONE (14:16)
[2022-05-06] MEDS ORDERED: cloNIDine 0.1 MG TABLET PO ONE (14:19)
[2022-05-06] MEDS ORDERED: FUROSEMIDE 40 MG/4 ML VIAL IV ONE (14:20)
[2022-05-06] MEDS ORDERED: METOPROLOL TARTRATE 25 MG TABLET ONE (14:43)
[2022-05-06] MEDS: METOPROLOL TARTRATE 25 MG TABLET PO SCH ×2 (14:56→21:00)
[2022-05-06] MEDS: cloNIDine 0.1 MG TABLET PO SCH ×2 (14:56→21:00)
[2022-05-06] MEDS: glipiZIDE 10 MG TABLET PO SCH (16:28)
[2022-05-06] MEDS: INSULIN REGULAR 100 UNIT/ML SUBCUT SCH ×2 (16:49→21:53)
[2022-05-06] MEDS: carvediloL 12.5 MG TABLET PO SCH (16:54)
[2022-05-06] MEDS: CYCLOBENZAPRINE 10 MG TABLET PO PRN (17:04)
[2022-05-06] MEDS ORDERED: traMADol 50 MG TABLET PO PRN (17:32)
[2022-05-06] MEDS ORDERED: HYDROmorphone 1 MG/1 ML SYRINGE SUBCUT PRN (19:34)
[2022-05-06] MEDS: hydrALAZINE 20 MG/1 ML VIAL IV PRN ×2 (19:57→20:00)
[2022-05-06] MEDS: HYDROmorphone 1 MG/1 ML SYRINGE IV PRN (19:57)
[2022-05-06] MEDS: DAPAGLIFLOZIN 10 MG TABLET PO SCH (20:10)
[2022-05-06] MEDS: MONTELUKAST 10 MG TABLET PO SCH (21:00)
[2022-05-06] MEDS: DOCUSATE SODIUM 100 MG CAPSULE PO SCH (21:00)
[2022-05-06] MEDS: DULoxetine 30 MG CAPSULE PO SCH (21:00)
[2022-05-06] MEDS: PREGABALIN 100 MG CAPSULE PO SCH (21:00)
[2022-05-06] MEDS: QUEtiapine 100 MG TABLET PO SCH (21:00)
[2022-05-06] MEDS: busPIRone 10 MG TABLET PO SCH (21:52)
[2022-05-06] MEDS: INSULIN GLARGINE 100 UNIT/ML SUBCUT SCH (21:53)
[2022-05-06] MEDS: KETOROLAC 15 MG/1 ML VIAL IV SCH (23:54)
[2022-05-07] MEDS: cefTRIAXone 1,000 MG in SODIUM CHLORIDE 0.9% 100 ML IV SCH (00:30)
[2022-05-07] MEDS: HYDROmorphone 1 MG/1 ML SYRINGE IV PRN ×5 (01:08→21:06)
[2022-05-07] MEDS: CLINDAMYCIN INJ 600 MG/50 ML PREMIX IV SCH ×3 (02:00→16:56)
[2022-05-07] MEDS: KETOROLAC 15 MG/1 ML VIAL IV SCH ×3 (05:00→21:05)
[2022-05-07 05:52] LABS: Basophils % 0.3 % (0.0-0.8); Eosinophils # 0.2 10*3/uL (0.0-0.87); Eosinophils % 3.5 % (0.00-10.9); Hematocrit 34.5 VOL% (42.0-52.0); Hemoglobin 11.4 GM/DL (14.0-18.0); Immature Granulocytes % 0.1 %; Immature Granulocytes Absolute 0.01 #; Lymphocytes # 1.2 10*3/uL (1.4-4.0); Lymphocytes % 16.9 % (21.2-54.2); Mean Corpuscular Volume 75.5 FL (87-102); Mean Platelet Volume 10.6 FL (9.6-12.0); Monocytes # 0.6 10*3/uL (0.11-0.8); Monocytes % 8.4 % (1.7-12.7); Neutrophils % 70.8 % (38.7-73.9); Platelet Count 213 T/CUMM (130-400); Red Blood Count 4.57 MC/CUMM (3.8-5.5); White Blood Count 6.9 T/CUMM (4-12)
[2022-05-07 06:07] LABS: Calcium 9.1 MG/DL (8.5-10.1); Osmolality,Calculated 279.4 MOS/KG (273-304); Potassium 3.8 MMOL/L (3.5-5.1)
[2022-05-07] MEDS ORDERED: GLUCAGON 1 MG VIAL IM PRN (08:24)
[2022-05-07] MEDS ORDERED: DEXTROSE 50% 25 GM/50 ML VIAL IV PRN (08:24)
[2022-05-07] MEDS: DOCUSATE SODIUM 100 MG CAPSULE PO SCH ×2 (08:44→21:05)
[2022-05-07] MEDS: PANTOPRAZOLE 40 MG TABLET PO SCH (08:45)
[2022-05-07] MEDS: carvediloL 12.5 MG TABLET PO SCH (08:45)
[2022-05-07] MEDS: cloNIDine 0.1 MG TABLET PO SCH ×3 (08:45→21:34)
[2022-05-07] MEDS: DAPAGLIFLOZIN 10 MG TABLET PO SCH (08:45)
[2022-05-07] MEDS: DULoxetine 30 MG CAPSULE PO SCH ×2 (08:45→21:05)
[2022-05-07] MEDS: METOPROLOL TARTRATE 25 MG TABLET PO SCH ×2 (08:45→21:34)
[2022-05-07] MEDS: ROSUVASTATIN 20 MG TABLET PO SCH (08:45)
[2022-05-07] MEDS: PREGABALIN 100 MG CAPSULE PO SCH ×2 (08:45→21:05)
[2022-05-07] MEDS: FUROSEMIDE 40 MG/4 ML VIAL IV SCH (08:45)
[2022-05-07] MEDS: glipiZIDE 10 MG TABLET PO SCH ×2 (08:45→16:55)
[2022-05-07] MEDS: INSULIN GLARGINE 100 UNIT/ML SUBCUT SCH ×2 (08:51→21:06)
[2022-05-07] MEDS: SODIUM CHLORIDE 0.9% 1,000 ML IV SCH ×4 (09:16→22:00)
[2022-05-07] MEDS: INSULIN REGULAR 100 UNIT/ML SUBCUT SCH ×4 (09:17→21:06)
[2022-05-07] MEDS ORDERED: MAGNESIUM SULF RIDER 1 GM/100 ML PREMIX IV ONE (13:00)
[2022-05-07] MEDS: carvediloL 25 MG TABLET PO SCH (16:55)
[2022-05-07] MEDS: MONTELUKAST 10 MG TABLET PO SCH (21:05)
[2022-05-07] MEDS: QUEtiapine 100 MG TABLET PO SCH (21:05)
[2022-05-07] MEDS: busPIRone 10 MG TABLET PO SCH (21:34)
[2022-05-08] MEDS: CLINDAMYCIN INJ 600 MG/50 ML PREMIX IV SCH ×3 (01:05→17:19)
[2022-05-08] MEDS: HYDROmorphone 1 MG/1 ML SYRINGE IV PRN ×5 (01:06→20:08)
[2022-05-08] MEDS: SODIUM CHLORIDE 0.9% 1,000 ML IV SCH ×2 (05:37→17:19)
[2022-05-08 05:57] LABS: Basophils % 0.5 % (0.0-0.8); Eosinophils # 0.2 10*3/uL (0.0-0.87); Eosinophils % 5.6 % (0.00-10.9); Hematocrit 34.9 VOL% (42.0-52.0); Hemoglobin 11.4 GM/DL (14.0-18.0); Immature Granulocytes % 0.2 %; Immature Granulocytes Absolute 0.01 #; Lymphocytes # 1.3 10*3/uL (1.4-4.0); Lymphocytes % 30.8 % (21.2-54.2); Mean Corpuscular HGB Conc 32.7 GM/DL (32-36); Mean Corpuscular Volume 75.4 FL (87-102); Mean Platelet Volume 10.5 FL (9.6-12.0); Monocytes # 0.3 10*3/uL (0.11-0.8); Monocytes % 7.6 % (1.7-12.7); Neutrophils % 55.3 % (38.7-73.9); Platelet Count 203 T/CUMM (130-400); Red Blood Count 4.63 MC/CUMM (3.8-5.5); Red Cell Distribution Width 14.2 % (9.3-17.3); White Blood Count 4.1 T/CUMM (4-12)
[2022-05-08 06:49] LABS: Calcium 8.8 MG/DL (8.5-10.1); Osmolality,Calculated 281.7 MOS/KG (273-304)
[2022-05-08] MEDS: INSULIN REGULAR 100 UNIT/ML SUBCUT SCH ×4 (08:17→20:07)
[2022-05-08] MEDS: glipiZIDE 10 MG TABLET PO SCH ×2 (09:29→17:18)
[2022-05-08] MEDS: cloNIDine 0.1 MG TABLET PO SCH ×3 (09:29→20:07)
[2022-05-08] MEDS: DAPAGLIFLOZIN 10 MG TABLET PO SCH (09:29)
[2022-05-08] MEDS: DULoxetine 30 MG CAPSULE PO SCH ×2 (09:29→20:07)
[2022-05-08] MEDS: carvediloL 25 MG TABLET PO SCH ×2 (09:29→17:18)
[2022-05-08] MEDS: METOPROLOL TARTRATE 25 MG TABLET PO SCH ×2 (09:29→20:07)
[2022-05-08] MEDS: ROSUVASTATIN 20 MG TABLET PO SCH (09:29)
[2022-05-08] MEDS: PANTOPRAZOLE 40 MG TABLET PO SCH (09:29)
[2022-05-08] MEDS: DOCUSATE SODIUM 100 MG CAPSULE PO SCH ×2 (09:29→20:26)
[2022-05-08] MEDS: PREGABALIN 100 MG CAPSULE PO SCH ×2 (09:29→20:08)
[2022-05-08] MEDS: FUROSEMIDE 40 MG/4 ML VIAL IV SCH (09:33)
[2022-05-08] MEDS: INSULIN GLARGINE 100 UNIT/ML SUBCUT SCH ×2 (09:33→20:12)
[2022-05-08] MEDS: KETOROLAC 15 MG/1 ML VIAL IV SCH ×3 (09:33→20:07)
[2022-05-08] MEDS: cefTRIAXone 1,000 MG in SODIUM CHLORIDE 0.9% 100 ML IV SCH (11:16)
[2022-05-08] MEDS: QUEtiapine 100 MG TABLET PO SCH (20:07)
[2022-05-08] MEDS: MONTELUKAST 10 MG TABLET PO SCH (20:08)
[2022-05-08] MEDS: busPIRone 10 MG TABLET PO SCH (20:26)
[2022-05-09] MEDS: CLINDAMYCIN INJ 600 MG/50 ML PREMIX IV SCH ×3 (00:08→17:05)
[2022-05-09] MEDS: HYDROmorphone 1 MG/1 ML SYRINGE IV PRN ×5 (00:08→21:02)
[2022-05-09] MEDS: SODIUM CHLORIDE 0.9% 1,000 ML IV SCH ×4 (02:20→22:05)
[2022-05-09] MEDS: carvediloL 25 MG TABLET PO SCH ×2 (08:34→16:59)
[2022-05-09] MEDS: glipiZIDE 10 MG TABLET PO SCH ×2 (08:35→16:59)
[2022-05-09] MEDS: PREGABALIN 100 MG CAPSULE PO SCH ×2 (08:35→21:03)
[2022-05-09] MEDS: METOPROLOL TARTRATE 25 MG TABLET PO SCH ×2 (08:35→21:06)
[2022-05-09] MEDS: cloNIDine 0.1 MG TABLET PO SCH ×3 (08:35→21:03)
[2022-05-09] MEDS: DAPAGLIFLOZIN 10 MG TABLET PO SCH (08:35)
[2022-05-09] MEDS: ROSUVASTATIN 20 MG TABLET PO SCH (08:35)
[2022-05-09] MEDS: DOCUSATE SODIUM 100 MG CAPSULE PO SCH ×2 (08:35→21:03)
[2022-05-09] MEDS: PANTOPRAZOLE 40 MG TABLET PO SCH (08:35)
[2022-05-09] MEDS: DULoxetine 30 MG CAPSULE PO SCH ×2 (08:35→21:03)
[2022-05-09] MEDS: FUROSEMIDE 40 MG/4 ML VIAL IV SCH (08:38)
[2022-05-09] MEDS: INSULIN REGULAR 100 UNIT/ML SUBCUT SCH ×4 (08:38→21:03)
[2022-05-09] MEDS: KETOROLAC 15 MG/1 ML VIAL IV SCH ×3 (08:39→21:02)
[2022-05-09] MEDS: cefTRIAXone 1,000 MG in SODIUM CHLORIDE 0.9% 100 ML IV SCH (10:52)
[2022-05-09] MEDS: INSULIN GLARGINE 100 UNIT/ML SUBCUT SCH ×2 (10:52→21:07)
[2022-05-09] MEDS: CYCLOBENZAPRINE 10 MG TABLET PO PRN (10:52)
[2022-05-09] MEDS: busPIRone 10 MG TABLET PO SCH (21:03)
[2022-05-09] MEDS: QUEtiapine 100 MG TABLET PO SCH (21:03)
[2022-05-09] MEDS: MONTELUKAST 10 MG TABLET PO SCH (21:03)
[2022-05-10] MEDS: CLINDAMYCIN INJ 600 MG/50 ML PREMIX IV SCH ×3 (00:16→16:42)
[2022-05-10] MEDS: HYDROmorphone 1 MG/1 ML SYRINGE IV PRN ×3 (01:10→09:42)
[2022-05-10] MEDS: SODIUM CHLORIDE 0.9% 1,000 ML IV SCH ×2 (07:38→23:12)
[2022-05-10] MEDS: INSULIN REGULAR 100 UNIT/ML SUBCUT SCH ×4 (07:39→23:13)
[2022-05-10] MEDS: KETOROLAC 15 MG/1 ML VIAL IV SCH (08:24)
[2022-05-10] MEDS: FUROSEMIDE 40 MG/4 ML VIAL IV SCH (08:25)
[2022-05-10] MEDS: PREGABALIN 100 MG CAPSULE PO SCH ×2 (08:30→21:13)
[2022-05-10] MEDS: INSULIN GLARGINE 100 UNIT/ML SUBCUT SCH ×2 (08:30→23:13)
[2022-05-10] MEDS: DULoxetine 30 MG CAPSULE PO SCH ×2 (08:30→21:13)
[2022-05-10] MEDS: glipiZIDE 10 MG TABLET PO SCH ×2 (08:30→16:42)
[2022-05-10] MEDS: cloNIDine 0.1 MG TABLET PO SCH ×3 (08:30→21:12)
[2022-05-10] MEDS: carvediloL 25 MG TABLET PO SCH ×2 (08:30→16:42)
[2022-05-10] MEDS: PANTOPRAZOLE 40 MG TABLET PO SCH (08:30)
[2022-05-10] MEDS: DAPAGLIFLOZIN 10 MG TABLET PO SCH (08:30)
[2022-05-10] MEDS: DOCUSATE SODIUM 100 MG CAPSULE PO SCH ×2 (08:30→21:12)
[2022-05-10] MEDS: METOPROLOL TARTRATE 25 MG TABLET PO SCH ×2 (08:30→21:13)
[2022-05-10] MEDS: ROSUVASTATIN 20 MG TABLET PO SCH (08:30)
[2022-05-10] MEDS ORDERED: MIDAZOLAM 2 MG/2 ML VIAL ONE (10:34)
[2022-05-10] MEDS ORDERED: KETAMINE 500 MG/10 ML VIAL ONE (10:35)
[2022-05-10] MEDS ORDERED: fentaNYL 100 MCG/2 ML VIAL ONE (10:36)
[2022-05-10] MEDS ORDERED: LIDOCAINE 2% 5 ML VIAL ONE ×2 (10:44→10:53)
[2022-05-10] MEDS ORDERED: ROPIVACAINE 0.5% 30 ML VIAL ONE ×2 (10:45→10:53)
[2022-05-10] MEDS ORDERED: LACTATED RINGERS 1,000 ML IV SCH (11:30)
[2022-05-10] MEDS ORDERED: DEXTROSE 50% 25 GM/50 ML VIAL IV PRN (12:30)
[2022-05-10] MEDS ORDERED: GLUCAGON 1 MG VIAL IM PRN (12:30)
[2022-05-10] MEDS: cefTRIAXone 1,000 MG in SODIUM CHLORIDE 0.9% 100 ML IV SCH (13:00)
[2022-05-10] MEDS: QUEtiapine 100 MG TABLET PO SCH (21:13)
[2022-05-10] MEDS: MONTELUKAST 10 MG TABLET PO SCH (21:14)
[2022-05-10] MEDS: busPIRone 10 MG TABLET PO SCH (23:12)
[2022-05-11] MEDS: CLINDAMYCIN INJ 600 MG/50 ML PREMIX IV SCH ×3 (01:30→16:28)
[2022-05-11] MEDS: SODIUM CHLORIDE 0.9% 1,000 ML IV SCH ×3 (07:02→17:23)
[2022-05-11] MEDS: HYDROmorphone 1 MG/1 ML SYRINGE IV PRN ×4 (07:59→20:55)
[2022-05-11] MEDS: cloNIDine 0.1 MG TABLET PO SCH ×3 (08:02→20:55)
[2022-05-11] MEDS: ROSUVASTATIN 20 MG TABLET PO SCH (08:02)
[2022-05-11] MEDS: DOCUSATE SODIUM 100 MG CAPSULE PO SCH ×2 (08:02→20:55)
[2022-05-11] MEDS: INSULIN REGULAR 100 UNIT/ML SUBCUT SCH ×3 (08:02→16:27)
[2022-05-11] MEDS: carvediloL 25 MG TABLET PO SCH ×2 (08:02→16:27)
[2022-05-11] MEDS: DULoxetine 30 MG CAPSULE PO SCH ×2 (08:04→20:55)
[2022-05-11] MEDS: PREGABALIN 100 MG CAPSULE PO SCH ×2 (08:04→20:55)
[2022-05-11] MEDS: DAPAGLIFLOZIN 10 MG TABLET PO SCH (08:04)
[2022-05-11] MEDS: METOPROLOL TARTRATE 25 MG TABLET PO SCH ×2 (08:04→20:55)
[2022-05-11] MEDS: glipiZIDE 10 MG TABLET PO SCH ×2 (08:04→16:27)
[2022-05-11] MEDS: PANTOPRAZOLE 40 MG TABLET PO SCH (08:04)
[2022-05-11] MEDS: INSULIN GLARGINE 100 UNIT/ML SUBCUT SCH ×2 (08:08→20:55)
[2022-05-11] MEDS: FUROSEMIDE 40 MG/4 ML VIAL IV SCH (08:11)
[2022-05-11] MEDS: SODIUM HYPOCHLORITE 0.25% IRRIG 473 ML BOTTLE TOP SCH ×2 (10:53→14:26)
[2022-05-11] MEDS: cefTRIAXone 1,000 MG in SODIUM CHLORIDE 0.9% 100 ML IV SCH (12:19)
[2022-05-11 15:29] LABS: Calcium 9.2 MG/DL (8.5-10.1); Osmolality,Calculated 279.7 MOS/KG (273-304); Potassium 3.8 MMOL/L (3.5-5.1)
[2022-05-11] MEDS ORDERED: MAGNESIUM HYDROXIDE SUSP 30 ML UDCUP PO PRN (17:24)
[2022-05-11] MEDS: MONTELUKAST 10 MG TABLET PO SCH (20:55)
[2022-05-11] MEDS: QUEtiapine 100 MG TABLET PO SCH (20:55)
[2022-05-12] MEDS: HYDROmorphone 1 MG/1 ML SYRINGE IV PRN ×7 (00:02→20:43)
[2022-05-12] MEDS: busPIRone 10 MG TABLET PO SCH ×2 (00:04→20:44)
[2022-05-12] MEDS: INSULIN REGULAR 100 UNIT/ML SUBCUT SCH ×5 (00:07→21:31)
[2022-05-12] MEDS: CLINDAMYCIN INJ 600 MG/50 ML PREMIX IV SCH ×3 (01:00→16:38)
[2022-05-12 05:44] LABS: Basophils % 0.2 % (0.0-0.8); Eosinophils # 0.2 10*3/uL (0.0-0.87); Eosinophils % 3.9 % (0.00-10.9); Hematocrit 33.7 VOL% (42.0-52.0); Hemoglobin 10.9 GM/DL (14.0-18.0); Immature Granulocytes % 0.4 %; Immature Granulocytes Absolute 0.02 #; Lymphocytes # 1.1 10*3/uL (1.4-4.0); Lymphocytes % 23.5 % (21.2-54.2); Mean Corpuscular HGB Conc 32.3 GM/DL (32-36); Mean Corpuscular Volume 74.9 FL (87-102); Mean Platelet Volume 10.3 FL (9.6-12.0); Monocytes # 0.5 10*3/uL (0.11-0.8); Monocytes % 11.7 % (1.7-12.7); Neutrophils % 60.3 % (38.7-73.9); Platelet Count 268 T/CUMM (130-400); Red Cell Distribution Width 14.5 % (9.3-17.3); White Blood Count 4.6 T/CUMM (4-12)
[2022-05-12 06:12] LABS: Calcium 9.4 MG/DL (8.5-10.1); Osmolality,Calculated 276.7 MOS/KG (273-304); Potassium 3.9 MMOL/L (3.5-5.1)
[2022-05-12] MEDS: cloNIDine 0.1 MG TABLET PO SCH ×3 (08:47→20:44)
[2022-05-12] MEDS: DULoxetine 30 MG CAPSULE PO SCH ×2 (08:47→20:45)
[2022-05-12] MEDS: ROSUVASTATIN 20 MG TABLET PO SCH (08:47)
[2022-05-12] MEDS: PANTOPRAZOLE 40 MG TABLET PO SCH (08:47)
[2022-05-12] MEDS: PREGABALIN 100 MG CAPSULE PO SCH ×2 (08:47→20:43)
[2022-05-12] MEDS: DAPAGLIFLOZIN 10 MG TABLET PO SCH (08:47)
[2022-05-12] MEDS: glipiZIDE 10 MG TABLET PO SCH ×2 (08:47→16:38)
[2022-05-12] MEDS: METOPROLOL TARTRATE 25 MG TABLET PO SCH ×2 (08:47→20:44)
[2022-05-12] MEDS: INSULIN GLARGINE 100 UNIT/ML SUBCUT SCH ×2 (08:48→20:45)
[2022-05-12] MEDS: carvediloL 25 MG TABLET PO SCH ×2 (08:48→16:38)
[2022-05-12] MEDS: FUROSEMIDE 40 MG/4 ML VIAL IV SCH (08:48)
[2022-05-12] MEDS: DOCUSATE SODIUM 100 MG CAPSULE PO SCH ×2 (08:51→20:45)
[2022-05-12] MEDS: SODIUM HYPOCHLORITE 0.25% IRRIG 473 ML BOTTLE TOP SCH (08:51)
[2022-05-12] MEDS: cefTRIAXone 1,000 MG in SODIUM CHLORIDE 0.9% 100 ML IV SCH (12:00)
[2022-05-12] MEDS: MONTELUKAST 10 MG TABLET PO SCH (20:44)
[2022-05-12] MEDS: QUEtiapine 100 MG TABLET PO SCH (20:44)
[2022-05-13] MEDS: CLINDAMYCIN INJ 600 MG/50 ML PREMIX IV SCH ×3 (00:31→16:01)
[2022-05-13] MEDS: HYDROmorphone 1 MG/1 ML SYRINGE IV PRN ×6 (00:32→21:00)
[2022-05-13 05:39] LABS: Basophils % 0.2 % (0.0-0.8); Eosinophils # 0.2 10*3/uL (0.0-0.87); Eosinophils % 4.6 % (0.00-10.9); Hematocrit 33.3 VOL% (42.0-52.0); Hemoglobin 10.9 GM/DL (14.0-18.0); Immature Granulocytes % 0.4 %; Immature Granulocytes Absolute 0.02 #; Lymphocytes % 21.8 % (21.2-54.2); Mean Corpuscular HGB Conc 32.7 GM/DL (32-36); Mean Corpuscular Volume 75.7 FL (87-102); Mean Platelet Volume 10.8 FL (9.6-12.0); Monocytes # 0.5 10*3/uL (0.11-0.8); Monocytes % 10.5 % (1.7-12.7); Neutrophils % 62.5 % (38.7-73.9); Platelet Count 283 T/CUMM (130-400); Red Cell Distribution Width 14.5 % (9.3-17.3); White Blood Count 4.8 T/CUMM (4-12)
[2022-05-13 05:57] LABS: Calcium 9.8 MG/DL (8.5-10.1); Osmolality,Calculated 281.7 MOS/KG (273-304)
[2022-05-13] MEDS: INSULIN REGULAR 100 UNIT/ML SUBCUT SCH ×4 (08:04→21:08)
[2022-05-13] MEDS: FUROSEMIDE 40 MG/4 ML VIAL IV SCH (08:06)
[2022-05-13] MEDS: DAPAGLIFLOZIN 10 MG TABLET PO SCH (08:09)
[2022-05-13] MEDS: carvediloL 25 MG TABLET PO SCH ×2 (08:09→17:07)
[2022-05-13] MEDS: METOPROLOL TARTRATE 25 MG TABLET PO SCH ×2 (08:10→20:59)
[2022-05-13] MEDS: DULoxetine 30 MG CAPSULE PO SCH ×2 (08:10→20:58)
[2022-05-13] MEDS: DOCUSATE SODIUM 100 MG CAPSULE PO SCH ×2 (08:10→20:59)
[2022-05-13] MEDS: PREGABALIN 100 MG CAPSULE PO SCH ×2 (08:10→20:59)
[2022-05-13] MEDS: glipiZIDE 10 MG TABLET PO SCH ×2 (08:10→15:56)
[2022-05-13] MEDS: cloNIDine 0.1 MG TABLET PO SCH ×3 (08:10→21:00)
[2022-05-13] MEDS: ROSUVASTATIN 20 MG TABLET PO SCH (08:10)
[2022-05-13] MEDS: PANTOPRAZOLE 40 MG TABLET PO SCH (08:10)
[2022-05-13] MEDS: INSULIN GLARGINE 100 UNIT/ML SUBCUT SCH ×2 (08:12→21:00)
[2022-05-13] MEDS: SODIUM HYPOCHLORITE 0.25% IRRIG 473 ML BOTTLE TOP SCH (08:12)
[2022-05-13] MEDS: cefTRIAXone 1,000 MG in SODIUM CHLORIDE 0.9% 100 ML IV SCH (11:29)
[2022-05-13] MEDS: MONTELUKAST 10 MG TABLET PO SCH (20:59)
[2022-05-13] MEDS: busPIRone 10 MG TABLET PO SCH (20:59)
[2022-05-13] MEDS: QUEtiapine 100 MG TABLET PO SCH (20:59)
[2022-05-14] MEDS: HYDROmorphone 1 MG/1 ML SYRINGE IV PRN ×6 (01:10→20:32)
[2022-05-14] MEDS: CLINDAMYCIN INJ 600 MG/50 ML PREMIX IV SCH ×2 (01:14→08:45)
[2022-05-14 05:36] LABS: Calcium 9.5 MG/DL (8.5-10.1); Osmolality,Calculated 284.7 MOS/KG (273-304); Potassium 4.2 MMOL/L (3.5-5.1)
[2022-05-14] MEDS: DAPAGLIFLOZIN 10 MG TABLET PO SCH (08:46)
[2022-05-14] MEDS: INSULIN GLARGINE 100 UNIT/ML SUBCUT SCH ×2 (08:46→20:33)
[2022-05-14] MEDS: PREGABALIN 100 MG CAPSULE PO SCH ×2 (08:46→20:34)
[2022-05-14] MEDS: glipiZIDE 10 MG TABLET PO SCH ×2 (08:46→16:38)
[2022-05-14] MEDS: METOPROLOL TARTRATE 25 MG TABLET PO SCH ×2 (08:47→20:38)
[2022-05-14] MEDS: carvediloL 25 MG TABLET PO SCH ×2 (08:47→16:38)
[2022-05-14] MEDS: DOCUSATE SODIUM 100 MG CAPSULE PO SCH ×2 (08:47→20:34)
[2022-05-14] MEDS: ROSUVASTATIN 20 MG TABLET PO SCH (08:47)
[2022-05-14] MEDS: FUROSEMIDE 40 MG/4 ML VIAL IV SCH (08:47)
[2022-05-14] MEDS: cloNIDine 0.1 MG TABLET PO SCH ×3 (08:47→20:34)
[2022-05-14] MEDS: PANTOPRAZOLE 40 MG TABLET PO SCH (08:47)
[2022-05-14] MEDS: INSULIN REGULAR 100 UNIT/ML SUBCUT SCH ×4 (08:48→20:38)
[2022-05-14] MEDS: SODIUM HYPOCHLORITE 0.25% IRRIG 473 ML BOTTLE TOP SCH (08:50)
[2022-05-14] MEDS: DULoxetine 30 MG CAPSULE PO SCH ×2 (08:50→20:34)
[2022-05-14] MEDS: cefTRIAXone 2,000 MG in SODIUM CHLORIDE 0.9% 100 ML IV SCH (11:44)
[2022-05-14] MEDS: QUEtiapine 100 MG TABLET PO SCH (20:34)
[2022-05-14] MEDS: busPIRone 10 MG TABLET PO SCH (20:34)
[2022-05-14] MEDS: MONTELUKAST 10 MG TABLET PO SCH (20:34)
[2022-05-15] MEDS: HYDROmorphone 1 MG/1 ML SYRINGE IV PRN ×4 (05:02→22:51)
[2022-05-15 05:32] LABS: Basophils % 0.6 % (0.0-0.8); Eosinophils # 0.2 10*3/uL (0.0-0.87); Eosinophils % 4.3 % (0.00-10.9); Hematocrit 35.4 VOL% (42.0-52.0); Hemoglobin 11.3 GM/DL (14.0-18.0); Immature Granulocytes % 0.4 %; Immature Granulocytes Absolute 0.02 #; Lymphocytes # 1.2 10*3/uL (1.4-4.0); Lymphocytes % 24.1 % (21.2-54.2); Mean Corpuscular HGB Conc 31.9 GM/DL (32-36); Mean Corpuscular Volume 76.1 FL (87-102); Mean Platelet Volume 10.6 FL (9.6-12.0); Monocytes # 0.7 10*3/uL (0.11-0.8); Monocytes % 12.7 % (1.7-12.7); Neutrophils % 57.9 % (38.7-73.9); Platelet Count 302 T/CUMM (130-400); Red Blood Count 4.65 MC/CUMM (3.8-5.5); Red Cell Distribution Width 14.7 % (9.3-17.3); White Blood Count 5.1 T/CUMM (4-12)
[2022-05-15 06:18] LABS: Calcium 9.7 MG/DL (8.5-10.1); Osmolality,Calculated 291.3 MOS/KG (273-304)
[2022-05-15] MEDS: cloNIDine 0.1 MG TABLET PO SCH ×3 (09:02→21:29)
[2022-05-15] MEDS: DAPAGLIFLOZIN 10 MG TABLET PO SCH (09:02)
[2022-05-15] MEDS: carvediloL 25 MG TABLET PO SCH ×2 (09:02→17:00)
[2022-05-15] MEDS: PREGABALIN 100 MG CAPSULE PO SCH ×2 (09:02→21:28)
[2022-05-15] MEDS: ROSUVASTATIN 20 MG TABLET PO SCH (09:03)
[2022-05-15] MEDS: DOCUSATE SODIUM 100 MG CAPSULE PO SCH ×2 (09:03→21:40)
[2022-05-15] MEDS: DULoxetine 30 MG CAPSULE PO SCH ×2 (09:03→21:28)
[2022-05-15] MEDS: FUROSEMIDE 40 MG/4 ML VIAL IV SCH (09:05)
[2022-05-15] MEDS: cefTRIAXone 2,000 MG in SODIUM CHLORIDE 0.9% 100 ML IV SCH (09:05)
[2022-05-15] MEDS: METOPROLOL TARTRATE 25 MG TABLET PO SCH ×2 (09:06→21:28)
[2022-05-15] MEDS: PANTOPRAZOLE 40 MG TABLET PO SCH (09:06)
[2022-05-15] MEDS: INSULIN GLARGINE 100 UNIT/ML SUBCUT SCH ×2 (09:06→21:32)
[2022-05-15] MEDS: INSULIN REGULAR 100 UNIT/ML SUBCUT SCH ×4 (09:06→21:39)
[2022-05-15] MEDS: SODIUM HYPOCHLORITE 0.25% IRRIG 473 ML BOTTLE TOP SCH (09:21)
[2022-05-15] MEDS: glipiZIDE 10 MG TABLET PO SCH ×2 (09:22→16:40)
[2022-05-15] MEDS: MONTELUKAST 10 MG TABLET PO SCH (21:28)
[2022-05-15] MEDS: busPIRone 10 MG TABLET PO SCH (21:28)
[2022-05-15] MEDS: QUEtiapine 100 MG TABLET PO SCH (21:29)
[2022-05-16] MEDS: HYDROmorphone 1 MG/1 ML SYRINGE IV PRN ×5 (03:01→21:41)
[2022-05-16 06:08] LABS: Basophils % 0.4 % (0.0-0.8); Eosinophils # 0.2 10*3/uL (0.0-0.87); Eosinophils % 3.8 % (0.00-10.9); Hematocrit 34.5 VOL% (42.0-52.0); Immature Granulocytes % 0.4 %; Immature Granulocytes Absolute 0.02 #; Lymphocytes # 1.6 10*3/uL (1.4-4.0); Lymphocytes % 31.9 % (21.2-54.2); Mean Corpuscular HGB Conc 31.9 GM/DL (32-36); Mean Corpuscular Volume 76.7 FL (87-102); Mean Platelet Volume 10.4 FL (9.6-12.0); Monocytes # 0.6 10*3/uL (0.11-0.8); Monocytes % 11.6 % (1.7-12.7); Neutrophils % 51.9 % (38.7-73.9); Platelet Count 281 T/CUMM (130-400); Red Cell Distribution Width 14.8 % (9.3-17.3); White Blood Count 5.02 T/CUMM (4-12)
[2022-05-16 06:42] LABS: Calcium 9.5 MG/DL (8.5-10.1); Osmolality,Calculated 288.3 MOS/KG (273-304); Potassium 4.2 MMOL/L (3.5-5.1)
[2022-05-16] MEDS: INSULIN REGULAR 100 UNIT/ML SUBCUT SCH ×4 (07:39→21:38)
[2022-05-16] MEDS: glipiZIDE 10 MG TABLET PO SCH ×2 (07:57→16:32)
[2022-05-16] MEDS: cefTRIAXone 2,000 MG in SODIUM CHLORIDE 0.9% 100 ML IV SCH (08:02)
[2022-05-16] MEDS: FUROSEMIDE 40 MG/4 ML VIAL IV SCH (08:02)
[2022-05-16] MEDS: cloNIDine 0.1 MG TABLET PO SCH ×3 (08:03→21:37)
[2022-05-16] MEDS: PANTOPRAZOLE 40 MG TABLET PO SCH (08:03)
[2022-05-16] MEDS: DAPAGLIFLOZIN 10 MG TABLET PO SCH (08:03)
[2022-05-16] MEDS: DOCUSATE SODIUM 100 MG CAPSULE PO SCH ×2 (08:03→21:37)
[2022-05-16] MEDS: METOPROLOL TARTRATE 25 MG TABLET PO SCH ×2 (08:03→21:37)
[2022-05-16] MEDS: PREGABALIN 100 MG CAPSULE PO SCH ×2 (08:03→21:37)
[2022-05-16] MEDS: DULoxetine 30 MG CAPSULE PO SCH ×2 (08:03→21:37)
[2022-05-16] MEDS: carvediloL 25 MG TABLET PO SCH ×2 (08:03→16:32)
[2022-05-16] MEDS: ROSUVASTATIN 20 MG TABLET PO SCH (08:03)
[2022-05-16] MEDS: INSULIN GLARGINE 100 UNIT/ML SUBCUT SCH ×2 (08:40→21:37)
[2022-05-16] MEDS: SODIUM HYPOCHLORITE 0.25% IRRIG 473 ML BOTTLE TOP SCH (12:11)
[2022-05-16] MEDS: QUEtiapine 100 MG TABLET PO SCH (21:37)
[2022-05-16] MEDS: busPIRone 10 MG TABLET PO SCH ×2 (21:37→21:56)
[2022-05-16] MEDS: MONTELUKAST 10 MG TABLET PO SCH (21:37)
[2022-05-17] MEDS: HYDROmorphone 1 MG/1 ML SYRINGE IV PRN ×4 (01:00→11:20)
[2022-05-17 06:05] LABS: Calcium 9.1 MG/DL (8.5-10.1); Osmolality,Calculated 290.3 MOS/KG (273-304); Potassium 3.9 MMOL/L (3.5-5.1)
[2022-05-17] MEDS: INSULIN REGULAR 100 UNIT/ML SUBCUT SCH ×4 (08:05→21:14)
[2022-05-17] MEDS: cefTRIAXone 2,000 MG in SODIUM CHLORIDE 0.9% 100 ML IV SCH (09:07)
[2022-05-17] MEDS: carvediloL 25 MG TABLET PO SCH ×2 (09:08→16:14)
[2022-05-17] MEDS: PANTOPRAZOLE 40 MG TABLET PO SCH (09:08)
[2022-05-17] MEDS: PREGABALIN 100 MG CAPSULE PO SCH ×2 (09:08→21:09)
[2022-05-17] MEDS: glipiZIDE 10 MG TABLET PO SCH ×2 (09:08→16:14)
[2022-05-17] MEDS: PIOGLITAZONE 15 MG TABLET PO SCH (09:08)
[2022-05-17] MEDS: ROSUVASTATIN 20 MG TABLET PO SCH (09:08)
[2022-05-17] MEDS: INSULIN GLARGINE 100 UNIT/ML SUBCUT SCH ×2 (09:08→21:09)
[2022-05-17] MEDS: cloNIDine 0.1 MG TABLET PO SCH ×3 (09:09→21:09)
[2022-05-17] MEDS: METOPROLOL TARTRATE 25 MG TABLET PO SCH ×2 (09:09→21:09)
[2022-05-17] MEDS: DOCUSATE SODIUM 100 MG CAPSULE PO SCH ×2 (09:09→21:09)
[2022-05-17] MEDS: DULoxetine 30 MG CAPSULE PO SCH ×2 (09:09→21:09)
[2022-05-17] MEDS: DAPAGLIFLOZIN 10 MG TABLET PO SCH (09:09)
[2022-05-17] MEDS: SODIUM HYPOCHLORITE 0.25% IRRIG 473 ML BOTTLE TOP SCH (09:22)
[2022-05-17] MEDS: LEVOFLOXACIN INJ 750 MG/150 ML PREMIX IV SCH (14:59)
[2022-05-17] MEDS: traMADol 50 MG TABLET PO PRN (16:37)
[2022-05-17] MEDS: busPIRone 10 MG TABLET PO SCH (21:08)
[2022-05-17] MEDS: MONTELUKAST 10 MG TABLET PO SCH (21:09)
[2022-05-17] MEDS: QUEtiapine 100 MG TABLET PO SCH (21:09)
[2022-05-18] MEDS: ROSUVASTATIN 20 MG TABLET PO SCH ×2 (07:26→08:47)
[2022-05-18] MEDS: cloNIDine 0.1 MG TABLET PO SCH ×4 (07:26→20:52)
[2022-05-18] MEDS: PIOGLITAZONE 15 MG TABLET PO SCH ×2 (07:26→08:47)
[2022-05-18] MEDS: DOCUSATE SODIUM 100 MG CAPSULE PO SCH ×3 (07:26→20:51)
[2022-05-18] MEDS: glipiZIDE 10 MG TABLET PO SCH ×2 (07:26→15:42)
[2022-05-18] MEDS: DULoxetine 30 MG CAPSULE PO SCH ×3 (07:26→20:51)
[2022-05-18] MEDS: METOPROLOL TARTRATE 25 MG TABLET PO SCH ×3 (07:26→20:51)
[2022-05-18] MEDS: PREGABALIN 100 MG CAPSULE PO SCH ×3 (07:26→20:51)
[2022-05-18] MEDS: PANTOPRAZOLE 40 MG TABLET PO SCH ×2 (07:26→08:50)
[2022-05-18] MEDS: carvediloL 25 MG TABLET PO SCH ×2 (07:26→17:26)
[2022-05-18] MEDS: cefTRIAXone 2,000 MG in SODIUM CHLORIDE 0.9% 100 ML IV SCH ×2 (07:27→08:53)
[2022-05-18] MEDS: DAPAGLIFLOZIN 10 MG TABLET PO SCH ×2 (07:27→08:48)
[2022-05-18] MEDS: INSULIN REGULAR 100 UNIT/ML SUBCUT SCH ×4 (08:16→20:59)
[2022-05-18] MEDS: INSULIN GLARGINE 100 UNIT/ML SUBCUT SCH ×2 (08:20→21:00)
[2022-05-18] MEDS: traMADol 50 MG TABLET PO PRN (09:37)
[2022-05-18] MEDS: oxyCODONE/ACETAMINOPHEN 5-325 MG TABLET PO PRN ×3 (11:58→20:58)
[2022-05-18] MEDS: SODIUM HYPOCHLORITE 0.25% IRRIG 473 ML BOTTLE TOP SCH (12:07)
[2022-05-18] MEDS: LEVOFLOXACIN INJ 750 MG/150 ML PREMIX IV SCH (17:14)
[2022-05-18] MEDS: QUEtiapine 100 MG TABLET PO SCH (20:51)
[2022-05-18] MEDS: MONTELUKAST 10 MG TABLET PO SCH (20:52)
[2022-05-18] MEDS: busPIRone 10 MG TABLET PO SCH (20:52)
[2022-05-18] MEDS ORDERED: MELATONIN 3 MG TABLET PO PRN (21:33)
[2022-05-19] MEDS: oxyCODONE/ACETAMINOPHEN 5-325 MG TABLET PO PRN ×2 (05:21→10:32)
[2022-05-19] MEDS: carvediloL 25 MG TABLET PO SCH ×2 (10:29→16:28)
[2022-05-19] MEDS: PREGABALIN 100 MG CAPSULE PO SCH ×2 (10:29→21:41)
[2022-05-19] MEDS: PIOGLITAZONE 15 MG TABLET PO SCH (10:30)
[2022-05-19] MEDS: DOCUSATE SODIUM 100 MG CAPSULE PO SCH ×2 (10:30→21:40)
[2022-05-19] MEDS: ROSUVASTATIN 20 MG TABLET PO SCH (10:30)
[2022-05-19] MEDS: PANTOPRAZOLE 40 MG TABLET PO SCH (10:30)
[2022-05-19] MEDS: METOPROLOL TARTRATE 25 MG TABLET PO SCH ×2 (10:30→21:40)
[2022-05-19] MEDS: glipiZIDE 10 MG TABLET PO SCH ×2 (10:30→15:34)
[2022-05-19] MEDS: DULoxetine 30 MG CAPSULE PO SCH ×2 (10:30→21:40)
[2022-05-19] MEDS: DAPAGLIFLOZIN 10 MG TABLET PO SCH (10:30)
[2022-05-19] MEDS: cefTRIAXone 2,000 MG in SODIUM CHLORIDE 0.9% 100 ML IV SCH (10:31)
[2022-05-19] MEDS: INSULIN GLARGINE 100 UNIT/ML SUBCUT SCH ×2 (10:31→21:41)
[2022-05-19] MEDS: INSULIN REGULAR 100 UNIT/ML SUBCUT SCH ×4 (10:32→21:41)
[2022-05-19] MEDS: cloNIDine 0.1 MG TABLET PO SCH ×3 (10:34→21:40)
[2022-05-19] MEDS: SODIUM HYPOCHLORITE 0.25% IRRIG 473 ML BOTTLE TOP SCH (10:39)
[2022-05-19] MEDS: HYDROmorphone 1 MG/1 ML SYRINGE IV PRN ×2 (16:54→21:42)
[2022-05-19] MEDS: LEVOFLOXACIN INJ 750 MG/150 ML PREMIX IV SCH (16:54)
[2022-05-19] MEDS: busPIRone 10 MG TABLET PO SCH (21:40)
[2022-05-19] MEDS: QUEtiapine 100 MG TABLET PO SCH (21:40)
[2022-05-19] MEDS: MONTELUKAST 10 MG TABLET PO SCH (21:41)
[2022-05-20] MEDS: HYDROmorphone 1 MG/1 ML SYRINGE IV PRN ×5 (02:16→20:11)
[2022-05-20 06:20] LABS: Calcium 9.4 MG/DL (8.5-10.1); Osmolality,Calculated 287.5 MOS/KG (273-304); Potassium 4.5 MMOL/L (3.5-5.1)
[2022-05-20 06:31] LABS: Basophils % 0.4 % (0.0-0.8); Eosinophils # 0.2 10*3/uL (0.0-0.87); Eosinophils % 4.3 % (0.00-10.9); Hemoglobin 10.4 GM/DL (14.0-18.0); Immature Granulocytes % 0.4 %; Immature Granulocytes Absolute 0.02 #; Lymphocytes # 1.4 10*3/uL (1.4-4.0); Mean Corpuscular HGB Conc 31.5 GM/DL (32-36); Mean Platelet Volume 10.4 FL (9.6-12.0); Monocytes # 0.5 10*3/uL (0.11-0.8); Monocytes % 10.5 % (1.7-12.7); Neutrophils % 55.4 % (38.7-73.9); Platelet Count 263 T/CUMM (130-400); Red Blood Count 4.23 MC/CUMM (3.8-5.5); Red Cell Distribution Width 14.7 % (9.3-17.3); White Blood Count 4.65 T/CUMM (4-12)
[2022-05-20] MEDS: INSULIN REGULAR 100 UNIT/ML SUBCUT SCH ×4 (08:20→21:06)
[2022-05-20] MEDS: DULoxetine 30 MG CAPSULE PO SCH ×2 (09:04→22:12)
[2022-05-20] MEDS: ROSUVASTATIN 20 MG TABLET PO SCH (09:04)
[2022-05-20] MEDS: PREGABALIN 100 MG CAPSULE PO SCH ×2 (09:04→22:12)
[2022-05-20] MEDS: PANTOPRAZOLE 40 MG TABLET PO SCH (09:04)
[2022-05-20] MEDS: DOCUSATE SODIUM 100 MG CAPSULE PO SCH ×2 (09:05→22:12)
[2022-05-20] MEDS: DAPAGLIFLOZIN 10 MG TABLET PO SCH (09:05)
[2022-05-20] MEDS: PIOGLITAZONE 15 MG TABLET PO SCH (09:05)
[2022-05-20] MEDS: cefTRIAXone 2,000 MG in SODIUM CHLORIDE 0.9% 100 ML IV SCH (09:05)
[2022-05-20] MEDS: glipiZIDE 10 MG TABLET PO SCH ×2 (09:05→15:39)
[2022-05-20] MEDS: carvediloL 25 MG TABLET PO SCH ×2 (09:05→17:43)
[2022-05-20] MEDS: METOPROLOL TARTRATE 25 MG TABLET PO SCH ×2 (09:05→22:11)
[2022-05-20] MEDS: cloNIDine 0.1 MG TABLET PO SCH ×3 (09:05→22:12)
[2022-05-20] MEDS: INSULIN GLARGINE 100 UNIT/ML SUBCUT SCH ×2 (09:13→22:09)
[2022-05-20] MEDS: SODIUM HYPOCHLORITE 0.25% IRRIG 473 ML BOTTLE TOP SCH (10:59)
[2022-05-20] MEDS: LEVOFLOXACIN INJ 750 MG/150 ML PREMIX IV SCH (15:39)
[2022-05-20] MEDS: busPIRone 10 MG TABLET PO SCH (22:12)
[2022-05-20] MEDS: QUEtiapine 100 MG TABLET PO SCH (22:13)
[2022-05-20] MEDS: MONTELUKAST 10 MG TABLET PO SCH (22:13)
[2022-05-21] MEDS: HYDROmorphone 1 MG/1 ML SYRINGE IV PRN ×5 (00:12→21:16)
[2022-05-21 05:35] LABS: Calcium 9.5 MG/DL (8.5-10.1); Osmolality,Calculated 283.7 MOS/KG (273-304); Potassium 4.3 MMOL/L (3.5-5.1)
[2022-05-21] MEDS: INSULIN REGULAR 100 UNIT/ML SUBCUT SCH ×4 (08:38→21:24)
[2022-05-21] MEDS: ROSUVASTATIN 20 MG TABLET PO SCH (09:13)
[2022-05-21] MEDS: PREGABALIN 100 MG CAPSULE PO SCH ×2 (09:13→21:14)
[2022-05-21] MEDS: glipiZIDE 10 MG TABLET PO SCH ×2 (09:15→17:19)
[2022-05-21] MEDS: carvediloL 25 MG TABLET PO SCH ×2 (09:15→17:19)
[2022-05-21] MEDS: PIOGLITAZONE 15 MG TABLET PO SCH (09:15)
[2022-05-21] MEDS: METOPROLOL TARTRATE 25 MG TABLET PO SCH ×2 (09:16→21:15)
[2022-05-21] MEDS: PANTOPRAZOLE 40 MG TABLET PO SCH (09:16)
[2022-05-21] MEDS: DOCUSATE SODIUM 100 MG CAPSULE PO SCH ×2 (09:16→21:14)
[2022-05-21] MEDS: DAPAGLIFLOZIN 10 MG TABLET PO SCH (09:16)
[2022-05-21] MEDS: CYCLOBENZAPRINE 10 MG TABLET PO PRN (09:16)
[2022-05-21] MEDS: cefTRIAXone 2,000 MG in SODIUM CHLORIDE 0.9% 100 ML IV SCH (09:17)
[2022-05-21] MEDS: DULoxetine 30 MG CAPSULE PO SCH ×2 (09:35→21:14)
[2022-05-21] MEDS: cloNIDine 0.1 MG TABLET PO SCH ×3 (09:35→21:14)
[2022-05-21] MEDS: INSULIN GLARGINE 100 UNIT/ML SUBCUT SCH ×2 (09:35→21:19)
[2022-05-21] MEDS: SODIUM HYPOCHLORITE 0.25% IRRIG 473 ML BOTTLE TOP SCH (09:46)
[2022-05-21] MEDS: LEVOFLOXACIN INJ 750 MG/150 ML PREMIX IV SCH (15:08)
[2022-05-21] MEDS: SODIUM CHLORIDE 0.9% 1,000 ML IV SCH (17:20)
[2022-05-21] MEDS: QUEtiapine 100 MG TABLET PO SCH (21:14)
[2022-05-21] MEDS: MONTELUKAST 10 MG TABLET PO SCH (21:14)
[2022-05-21] MEDS: busPIRone 10 MG TABLET PO SCH (21:14)
[2022-05-22] MEDS: HYDROmorphone 1 MG/1 ML SYRINGE IV PRN ×4 (03:02→20:52)
[2022-05-22] MEDS: oxyCODONE/ACETAMINOPHEN 5-325 MG TABLET PO PRN (05:58)
[2022-05-22 06:02] LABS: Calcium 9.4 MG/DL (8.5-10.1); Osmolality,Calculated 290.4 MOS/KG (273-304); Potassium 4.2 MMOL/L (3.5-5.1)
[2022-05-22 07:08] LABS: Basophils % 0.4 % (0.0-0.8); Eosinophils # 0.2 10*3/uL (0.0-0.87); Eosinophils % 3.9 % (0.00-10.9); Hematocrit 32.5 VOL% (42.0-52.0); Hemoglobin 10.2 GM/DL (14.0-18.0); Immature Granulocytes % 0.2 %; Immature Granulocytes Absolute 0.01 #; Lymphocytes # 1.3 10*3/uL (1.4-4.0); Mean Corpuscular HGB Conc 31.4 GM/DL (32-36); Mean Corpuscular Volume 77.4 FL (87-102); Mean Platelet Volume 10.9 FL (9.6-12.0); Monocytes # 0.5 10*3/uL (0.11-0.8); Monocytes % 10.6 % (1.7-12.7); Neutrophils % 56.9 % (38.7-73.9); Platelet Count 243 T/CUMM (130-400); Red Cell Distribution Width 14.8 % (9.3-17.3); White Blood Count 4.64 T/CUMM (4-12)
[2022-05-22] MEDS: cefTRIAXone 2,000 MG in SODIUM CHLORIDE 0.9% 100 ML IV SCH (09:36)
[2022-05-22] MEDS: carvediloL 25 MG TABLET PO SCH ×2 (09:37→18:19)
[2022-05-22] MEDS: cloNIDine 0.1 MG TABLET PO SCH ×3 (09:37→20:50)
[2022-05-22] MEDS: DULoxetine 30 MG CAPSULE PO SCH ×2 (09:37→20:49)
[2022-05-22] MEDS: ROSUVASTATIN 20 MG TABLET PO SCH (09:38)
[2022-05-22] MEDS: PREGABALIN 100 MG CAPSULE PO SCH ×2 (09:38→20:50)
[2022-05-22] MEDS: PANTOPRAZOLE 40 MG TABLET PO SCH (09:38)
[2022-05-22] MEDS: DOCUSATE SODIUM 100 MG CAPSULE PO SCH ×2 (09:39→20:50)
[2022-05-22] MEDS: DAPAGLIFLOZIN 10 MG TABLET PO SCH (09:39)
[2022-05-22] MEDS: METOPROLOL TARTRATE 25 MG TABLET PO SCH ×2 (09:39→20:50)
[2022-05-22] MEDS: PIOGLITAZONE 15 MG TABLET PO SCH (09:39)
[2022-05-22] MEDS: SODIUM CHLORIDE 0.9% 1,000 ML IV SCH ×2 (09:39→20:59)
[2022-05-22] MEDS: glipiZIDE 10 MG TABLET PO SCH ×2 (09:39→18:19)
[2022-05-22] MEDS: INSULIN REGULAR 100 UNIT/ML SUBCUT SCH ×4 (09:40→20:58)
[2022-05-22] MEDS: INSULIN GLARGINE 100 UNIT/ML SUBCUT SCH ×2 (09:46→21:03)
[2022-05-22] MEDS: SODIUM HYPOCHLORITE 0.25% IRRIG 473 ML BOTTLE TOP SCH (11:49)
[2022-05-22] MEDS: LEVOFLOXACIN INJ 750 MG/150 ML PREMIX IV SCH (14:51)
[2022-05-22] MEDS: QUEtiapine 100 MG TABLET PO SCH (20:50)
[2022-05-22] MEDS: MONTELUKAST 10 MG TABLET PO SCH (20:50)
[2022-05-22] MEDS: busPIRone 10 MG TABLET PO SCH (20:50)
[2022-05-23] MEDS: oxyCODONE/ACETAMINOPHEN 5-325 MG TABLET PO PRN ×3 (00:29→19:41)
[2022-05-23] MEDS: HYDROmorphone 1 MG/1 ML SYRINGE IV PRN ×4 (02:55→21:52)
[2022-05-23 05:36] LABS: Calcium 8.7 MG/DL (8.5-10.1)
[2022-05-23] MEDS: INSULIN REGULAR 100 UNIT/ML SUBCUT SCH ×4 (08:13→21:52)
[2022-05-23] MEDS: cefTRIAXone 2,000 MG in SODIUM CHLORIDE 0.9% 100 ML IV SCH (09:57)
[2022-05-23] MEDS: PANTOPRAZOLE 40 MG TABLET PO SCH (10:00)
[2022-05-23] MEDS: INSULIN GLARGINE 100 UNIT/ML SUBCUT SCH ×2 (10:00→21:05)
[2022-05-23] MEDS: PIOGLITAZONE 15 MG TABLET PO SCH (10:00)
[2022-05-23] MEDS: ROSUVASTATIN 20 MG TABLET PO SCH (10:00)
[2022-05-23] MEDS: PREGABALIN 100 MG CAPSULE PO SCH ×2 (10:00→21:04)
[2022-05-23] MEDS: carvediloL 25 MG TABLET PO SCH ×2 (10:01→16:12)
[2022-05-23] MEDS: cloNIDine 0.1 MG TABLET PO SCH ×3 (10:01→21:04)
[2022-05-23] MEDS: DAPAGLIFLOZIN 10 MG TABLET PO SCH (10:01)
[2022-05-23] MEDS: DULoxetine 30 MG CAPSULE PO SCH ×2 (10:01→21:04)
[2022-05-23] MEDS: METOPROLOL TARTRATE 25 MG TABLET PO SCH ×2 (10:02→21:04)
[2022-05-23] MEDS: DOCUSATE SODIUM 100 MG CAPSULE PO SCH ×2 (10:02→21:04)
[2022-05-23] MEDS: SODIUM HYPOCHLORITE 0.25% IRRIG 473 ML BOTTLE TOP SCH (10:04)
[2022-05-23] MEDS: glipiZIDE 10 MG TABLET PO SCH ×2 (10:13→16:11)
[2022-05-23] MEDS: SODIUM CHLORIDE 0.9% 1,000 ML IV SCH (12:20)
[2022-05-23] MEDS: LEVOFLOXACIN INJ 750 MG/150 ML PREMIX IV SCH (16:12)
[2022-05-23] MEDS: QUEtiapine 100 MG TABLET PO SCH (21:03)
[2022-05-23] MEDS: MONTELUKAST 10 MG TABLET PO SCH (21:04)
[2022-05-23] MEDS: busPIRone 10 MG TABLET PO SCH (21:04)
[2022-05-24] MEDS: SODIUM CHLORIDE 0.9% 1,000 ML IV SCH ×2 (03:10→16:25)
[2022-05-24] MEDS: HYDROmorphone 1 MG/1 ML SYRINGE IV PRN ×4 (03:31→22:40)
[2022-05-24 05:56] LABS: Calcium 9.5 MG/DL (8.5-10.1); Osmolality,Calculated 289.1 MOS/KG (273-304); Potassium 4.2 MMOL/L (3.5-5.1)
[2022-05-24] MEDS: INSULIN REGULAR 100 UNIT/ML SUBCUT SCH ×4 (07:39→20:22)
[2022-05-24] MEDS: cefTRIAXone 2,000 MG in SODIUM CHLORIDE 0.9% 100 ML IV SCH (08:46)
[2022-05-24] MEDS: SODIUM HYPOCHLORITE 0.25% IRRIG 473 ML BOTTLE TOP SCH (08:46)
[2022-05-24] MEDS: glipiZIDE 10 MG TABLET PO SCH ×2 (08:50→16:27)
[2022-05-24] MEDS: PREGABALIN 100 MG CAPSULE PO SCH ×2 (08:50→20:28)
[2022-05-24] MEDS: INSULIN GLARGINE 100 UNIT/ML SUBCUT SCH ×2 (08:50→20:34)
[2022-05-24] MEDS: DOCUSATE SODIUM 100 MG CAPSULE PO SCH ×2 (08:50→20:30)
[2022-05-24] MEDS: cloNIDine 0.1 MG TABLET PO SCH ×3 (08:50→20:28)
[2022-05-24] MEDS: PIOGLITAZONE 15 MG TABLET PO SCH (08:51)
[2022-05-24] MEDS: CYCLOBENZAPRINE 10 MG TABLET PO PRN (08:51)
[2022-05-24] MEDS: DULoxetine 30 MG CAPSULE PO SCH ×2 (08:51→20:28)
[2022-05-24] MEDS: carvediloL 25 MG TABLET PO SCH ×2 (08:51→16:25)
[2022-05-24] MEDS: ROSUVASTATIN 20 MG TABLET PO SCH (08:51)
[2022-05-24] MEDS: PANTOPRAZOLE 40 MG TABLET PO SCH (08:51)
[2022-05-24] MEDS: METOPROLOL TARTRATE 25 MG TABLET PO SCH ×2 (08:51→20:30)
[2022-05-24] MEDS: oxyCODONE/ACETAMINOPHEN 5-325 MG TABLET PO PRN ×3 (08:51→19:35)
[2022-05-24] MEDS: DAPAGLIFLOZIN 10 MG TABLET PO SCH (08:51)
[2022-05-24] MEDS: LEVOFLOXACIN INJ 750 MG/150 ML PREMIX IV SCH (14:08)
[2022-05-24] MEDS: QUEtiapine 100 MG TABLET PO SCH (20:30)
[2022-05-24] MEDS: MONTELUKAST 10 MG TABLET PO SCH (20:30)
[2022-05-24] MEDS: busPIRone 10 MG TABLET PO SCH (20:31)
[2022-05-25] MEDS: oxyCODONE/ACETAMINOPHEN 5-325 MG TABLET PO PRN ×3 (01:48→21:25)
[2022-05-25] MEDS: HYDROmorphone 1 MG/1 ML SYRINGE IV PRN ×3 (04:30→18:10)
[2022-05-25] MEDS: SODIUM CHLORIDE 0.9% 1,000 ML IV SCH ×2 (05:38→22:59)
[2022-05-25 05:52] LABS: Basophils % 0.4 % (0.0-0.8); Eosinophils # 0.2 10*3/uL (0.0-0.87); Eosinophils % 4.7 % (0.00-10.9); Hematocrit 36.8 VOL% (42.0-52.0); Hemoglobin 11.6 GM/DL (14.0-18.0); Immature Granulocytes % 1.1 %; Immature Granulocytes Absolute 0.05 #; Lymphocytes # 1.5 10*3/uL (1.4-4.0); Mean Corpuscular HGB Conc 31.5 GM/DL (32-36); Mean Corpuscular Volume 76.7 FL (87-102); Mean Platelet Volume 10.8 FL (9.6-12.0); Monocytes # 0.5 10*3/uL (0.11-0.8); Monocytes % 10.6 % (1.7-12.7); Neutrophils % 50.2 % (38.7-73.9); Platelet Count 276 T/CUMM (130-400); Red Cell Distribution Width 14.6 % (9.3-17.3); White Blood Count 4.64 T/CUMM (4-12)
[2022-05-25 06:23] LABS: Calcium 9.5 MG/DL (8.5-10.1); Osmolality,Calculated 277.7 MOS/KG (273-304)
[2022-05-25] MEDS: DAPAGLIFLOZIN 10 MG TABLET PO SCH (09:30)
[2022-05-25] MEDS: carvediloL 25 MG TABLET PO SCH ×2 (09:30→16:05)
[2022-05-25] MEDS: CYCLOBENZAPRINE 10 MG TABLET PO PRN (09:30)
[2022-05-25] MEDS: DULoxetine 30 MG CAPSULE PO SCH ×2 (09:30→21:24)
[2022-05-25] MEDS: METOPROLOL TARTRATE 25 MG TABLET PO SCH ×2 (09:30→21:25)
[2022-05-25] MEDS: DOCUSATE SODIUM 100 MG CAPSULE PO SCH ×2 (09:30→21:24)
[2022-05-25] MEDS: cloNIDine 0.1 MG TABLET PO SCH ×3 (09:30→21:24)
[2022-05-25] MEDS: PREGABALIN 100 MG CAPSULE PO SCH ×2 (09:30→21:26)
[2022-05-25] MEDS: ROSUVASTATIN 20 MG TABLET PO SCH (09:30)
[2022-05-25] MEDS: PANTOPRAZOLE 40 MG TABLET PO SCH (09:30)
[2022-05-25] MEDS: PIOGLITAZONE 15 MG TABLET PO SCH (09:30)
[2022-05-25] MEDS: glipiZIDE 10 MG TABLET PO SCH ×2 (09:30→16:05)
[2022-05-25] MEDS: INSULIN REGULAR 100 UNIT/ML SUBCUT SCH ×4 (09:31→21:30)
[2022-05-25] MEDS: INSULIN GLARGINE 100 UNIT/ML SUBCUT SCH ×2 (09:31→21:33)
[2022-05-25] MEDS: SODIUM HYPOCHLORITE 0.25% IRRIG 473 ML BOTTLE TOP SCH (09:32)
[2022-05-25] MEDS: LEVOFLOXACIN 500 MG TABLET PO SCH (14:12)
[2022-05-25] MEDS: busPIRone 10 MG TABLET PO SCH (21:25)
[2022-05-25] MEDS: MONTELUKAST 10 MG TABLET PO SCH (21:26)
[2022-05-25] MEDS: QUEtiapine 100 MG TABLET PO SCH (21:26)
[2022-05-26] MEDS: HYDROmorphone 1 MG/1 ML SYRINGE IV PRN ×3 (00:08→11:52)
[2022-05-26] MEDS: oxyCODONE/ACETAMINOPHEN 5-325 MG TABLET PO PRN ×2 (02:28→08:34)
[2022-05-26] MEDS: INSULIN REGULAR 100 UNIT/ML SUBCUT SCH ×2 (08:23→11:53)
[2022-05-26] MEDS: INSULIN GLARGINE 100 UNIT/ML SUBCUT SCH (08:25)
[2022-05-26] MEDS: glipiZIDE 10 MG TABLET PO SCH (08:26)
[2022-05-26] MEDS: DAPAGLIFLOZIN 10 MG TABLET PO SCH (08:26)
[2022-05-26] MEDS: PIOGLITAZONE 15 MG TABLET PO SCH (08:26)
[2022-05-26] MEDS: ROSUVASTATIN 20 MG TABLET PO SCH (08:26)
[2022-05-26] MEDS: cloNIDine 0.1 MG TABLET PO SCH (08:27)
[2022-05-26] MEDS: PREGABALIN 100 MG CAPSULE PO SCH (08:27)
[2022-05-26] MEDS: carvediloL 25 MG TABLET PO SCH (08:27)
[2022-05-26] MEDS: METOPROLOL TARTRATE 25 MG TABLET PO SCH (08:27)
[2022-05-26] MEDS: DOCUSATE SODIUM 100 MG CAPSULE PO SCH (08:27)
[2022-05-26] MEDS: DULoxetine 30 MG CAPSULE PO SCH (08:27)
[2022-05-26] MEDS: PANTOPRAZOLE 40 MG TABLET PO SCH (08:27)
[2022-05-26] MEDS: SODIUM HYPOCHLORITE 0.25% IRRIG 473 ML BOTTLE TOP SCH (08:28)
[2022-05-26] MEDS: LEVOFLOXACIN 500 MG TABLET PO SCH (08:31)
[2022-05-26] MEDS: CYCLOBENZAPRINE 10 MG TABLET PO PRN (08:32)
[2022-05-26] MEDS: SODIUM CHLORIDE 0.9% 1,000 ML IV SCH (09:50)
[2022-05-26 11:53] VITALS: BP 148/94
== END 2022-05-26 15:37 | disposition home or self-care (01) | DRG 313 ==
LOC: N.ED 09:32 → N.2E 12:47
PROVIDERS: ADMIT Emergency Medicine; ATTEND Internal Medicine